=== PATIENT | female | born 2000 | race Caucasian/White ===

== ENCOUNTER 2021-01-13 11:12 | Emergency (ER) | payer OTHER ==
[2021-01-13 11:59] LABS: Urine Blood Trace-intact (Negative); Urine Glucose Negative (Negative); Urine Protein 2+ (Negative); Urine Specific Gravity >=1.030 (1.005-1.030)
[2021-01-13 12:27] LABS: Barbiturates NEGATIVE (NEGATIVE); Benzodiazepines NEGATIVE (NEGATIVE); Cocaine NEGATIVE (NEGATIVE); METHAMPHETAM NEGATIVE (NEGATIVE); Methadone NEGATIVE (NEGATIVE); Opiates NEGATIVE (NEGATIVE); Phencyclidine NEGATIVE (NEGATIVE); THC Cannibis POSITIVE (NEGATIVE)
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
[2021-01-13 12:33] LABS: Urine Specific Gravity/Preg >1.030 (1.005-1.030)
--- NOTE | 2021-01-13 13:38 | RAD REPORT ---
EXAM DESCRIPTION: [place] Single View01/13/2021 1:11 pm CLINICAL HISTORY: Chest pain COMPARISON: none FINDINGS: The lungs appear clear of acute infiltrate. The heart is normal size IMPRESSION: No acute abnormalities displayed
--- NOTE | 2021-01-13 13:39 | RAD REPORT ---
EXAM DESCRIPTION: RADSacrum And Coccyx01/13/2021 1:11 pm CLINICAL HISTORY: Back pain FINDINGS: No fracture is seen
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
[2021-01-13] MEDS ORDERED: ACETAMINOPHEN 500 MG TAB ONE (13:51)
[2021-01-13 14:01] VITALS: TEMP 98.6
[2021-01-13 14:09] VITALS: BP 109/64; O2SAT 99
== END 2021-01-13 13:55 | disposition home or self-care (01) ==
LOC: ER 11:12
DX: S00.83XA Contusion of other part of head, initial encounter (principal); S30.0XXA Contusion of lower back and pelvis, initial encounter; S20.212A Contusion of left front wall of thorax, initial encounter; Y04.8XXA Assault by other bodily force, initial encounter; Y92.009 Unspecified place in unspecified non-institutional (private) residence as the place of occurrence of the external cause
CPT/HCPCS: 70450; 71045; 72125; 72220; 80307; 81003; 81025; 99284

== ENCOUNTER 2021-12-02 20:45 | Emergency (ER) | payer OTHER ==
--- OUTSIDE RECORDS SUMMARY | 2021-12-02 20:52 | XMS REPORT | Continuity of Care Document ---
:2000 Author Organization [facility] t Address [address] [place] [address] Care Team Providers Name Role Phone EDEMEKONG Primary Care Physician Unavailable ABEBA LEIGH Attending Clinician Unavailable Tera Crawford MD Attending Clinician Abeba Leigh MD Attending Clinician Olga Park MD Attending Clinician Trino MEDELLIN Attending Clinician Only, Test Attending Clinician Unavailable Tera CRAWFORD Attending Clinician Unavailable MISTY Attending Clinician Unavailable Misty ALLAN Attending Clinician 2, Lab Attending Clinician Unavailable Doctor Unassigned, Name Attending Clinician Unavailable Abeba Leigh MD Admitting Clinician ABEBA LEIGH Admitting Clinician Unavailable Payers Payer Name Policy Type Policy Number Effective Date Expiration Date S ource Advance Directives Directive Decision Effective Termination Comments Source Date Date Healthcare Agents on N/A [facility] FileNameRelationshipHealthcare [facility] Agent Medical RelationshipCommunicationDebra Branch CoatsGana mdparentHealth Care [phone] (Mobile) [email or web address] Sundar ZamoranoMotherHealth Care [phone] (Mobile) Problems Condition Condition Condition Status Onset Resolution Last Treating Co mments Source Name Details Category Date Date Treatment Clinician Date Liveborn Liveborn Disease Active Unive rs , of infant, of 4-15 it y of [place] 00:00: Yung horton , , 00 Me dical born in born in [facility] hospital by vaginal by vaginal delivery delivery 39 weeks 39 weeks Disease Active Unive rs gestation gestation 4-14 ity of of of 00:00: [place] 00 [facility] Encounter Encounter Disease Active Uni vers for for 4-14 ity of planned planned 00:00: [place] induction induction 00 [facility] of labor of labor [place] Oral Oral Disease Active Univers herpes herpes 3-03 ity of simplex simplex 00:00: [place] infection infection 00 [facility] Maternal Maternal Disease Active Overview: Un jarvis varicella, varicella, 8-31 Formattin ity of non-immune non-immune 00:00: g of this [place] 00 note Medical might be Branch different from the original. Address in PP Supervisio Supervisio Disease Active U nivers n of high n of high 8-30 ity of risk risk 00:00: [place] , , 00 Me dical antepartum antepartum Br anch Nausea and Nausea and Disease Active U nivers vomiting vomiting 8-30 ity of during during 00:00: [place] 00 [facility] prior to prior to Branch 22 weeks 22 weeks gestation gestation History of History of Disease Active U nivers depression depression 8-30 it y of 00:00: [address] [place] [address] Branch Anxiety, Anxiety, Disease Active Unive rs generalize generalize 4-21 it y of d d 00:00: [address] ADHD ADHD Disease Active 2017-08 Overview: Univer s (attention (attention 0-13 Formattin ity of deficit deficit 00:00: g of this [place] hyperactiv hyperactiv 00 note Me dical ity ity might be Branch disorder), disorder), different inattentiv inattentiv from the e type e type original. Vmichaele prescribe d in the past - patient discontin ued, non compliant - states it did not work. She was taking 10 mg q am. Mild Mild Disease Active 2017-08 Univers intermitte intermitte 0-07 [place] y of nt asthma nt asthma 00:[place] without without 00 Medical complicati complicati Br anch on on Chronic Chronic Disease Active 2017-08 Univers allergic allergic 0-07 ity of rhinitis rhinitis 00:00: [place] 00 [facility] Allergies, Adverse Reactions, Alerts Allergy Allergy Status Severity Reaction(s) Onset Inactive Treating Comm ents Source Name Type Date Date Clinician NO KNOWN Drug Active Univers ALLERGIE Class ity of S [facility] Social History Social Habit Start Date Stop Date Quantity Comments Source ASSERTION 2021-03-05 [facility] 00:00:00 [facility] Exposure to Not sure [facility] SARS-CoV-2 (event) Medica l [place] Alcohol intake 2021-11-20 2021-11-20 0 /d [facility] 00:00:00 00:00:00 [facility] Tobacco use and 2015-12-25 2015-12-25 Never used [facility] exposure 00:00:00 00:00:00 [facility] Sex Assigned At [birth year] [facility] 00:00:00 00:00:00 [facility] Smoking Status Start Date Stop Date Source Never smoker [facility] Medications Ordered Filled Start Stop Current Ordering Indication Dosage Frequency Signature Comments Components Source Medication Medication Date Date Medication? Clinician (SIG) Name Name Yes [id number] 1{tbl} Take 1 U nivers vitamin 4-16 tablet by ity of w/FA tablet 00:00: mouth [place] 00 daily. Medical Branch docusate Yes [id number] 240mg Take 1 Un jarvis calcium 240 4-16 capsule by it y of mg capsule 00:00: mouth [place] 00 daily as Medical needed for Branch Constipati on. ferrous Yes [id number] 325mg Take 1 Uni vers sulfate 325 4-16 tablet by ity of mg (65 mg 00:00: mouth 2 [place] iron) 00 (two) Medical tablet times Branch daily. ibuprofen Yes [id number] 600mg Take 1 U nivers 600 mg 4-16 tablet by ity of tablet 00:00: mouth [place] 00 every 6 Medical (six) Branch hours as needed (Pain). Take with food or milk. simethicone Yes 125mg 125 mg, Un jarvis (MYLICON) 4-15 Oral, ity of chewable 23:00: PC+HS, [place] tablet 125 00 First dose Med ical mg on Fri Branch 11/20/21 at 1800, Until Discontinu ed, Routine rho(D) Yes 300ug 300 mcg, Univer s immune 4-15 Intramuscu ity of globulin 18:20: lar, ONCE, Nima as (RHOGAM) 39 For 1 Medical syringe 300 dose, Branch mcg Conditiona l, Routine witch Jose Enrique Yes Topical, Un jarvis (TUCKS) 50 4-15 Q4HPRN, ity of % topical 18:20: [place] pad 37 on Fri Medical 11/20/21 at Branch 1320, Until Discontinu ed, Routine, rectal/hem orrhoidal pain HYDROcodone Yes 1{tbl} 1 tablet, Univers -acetaminop 4-15 Oral, ity of hen (NORCO 18:20: Q6HPRN, [place] 5) 5-325 mg 37 Starting Medi misha tablet 1 on Fri Branch tablet 11/20/21 at 1320, Until Discontinu ed, Routine, Pain (scale 7-10) ibuprofen Yes 600mg 600 mg, Univ ers (IBU) 4-15 Oral, ity of tablet 600 18:20: Q6HPRN, [place] mg 37 Starting Medical on Fri Branch 11/20/21 at 1320, Until Discontinu ed, Routine, Pain (scale 4-6) acetaminoph Yes 650mg 650 mg, Un jarvis en 4-15 Oral, ity of (TYLENOL) 18:20: Q6HPRN, [place] tablet 650 37 Starting Medic al mg on Fri Branch 11/20/21 at 1320, Until Discontinu ed, Routine, Pain (scale 1-3) diphenhydrA Yes 25mg 25 mg, Univ ers MINE 4-15 Oral, ity of (BENADRYL) 18:20: Q6HPRN, [place] tablet 25 37 Starting Medica l mg on Fri Branch 11/20/21 at 1320, Until Discontinu ed, Routine, Sleep, Itching ondansetron Yes 4mg 4 mg, Slow Univers (ZOFRAN 4-15 IV Push, ity of (PF)) 18:20: Q8HPRN, [place] injection 4 37 Starting Medi misha mg on Fri Branch 11/20/21 at 1320, Until Discontinu ed, Routine, Nausea and Vomiting (N/V) docusate Yes 240mg 240 mg, Unive rs calcium 4-15 Oral, ity of (SURFAK) 18:20: QDAILYPRN, [place] capsule 240 37 Starting Medi misha mg on Fri Branch 11/20/21 at 1320, Until Discontinu ed, Routine, Constipati on magnesium Yes 30mL 30 mL, Univer s hydroxide 4-15 Oral, ity of (MILK OF 18:20: QDAILYPRN, [place] MAGNESIA) 37 Starting Medica l 400 mg/5 mL on Tue Branch suspension 11/20/21 at 30 mL 1320, Until Discontinu ed, Routine, Constipati on benzocaine- Yes Topical, Un jarvis menthol 4-15 PRN, ity of (DERMOPLAST 18:20: [place] 20-0.5 % 37 on Fri Medical topical 11/20/21 at Branch spray 1320, Until Discontinu ed, Routine, Perineum discomfort fentaNYL-ro 2021- No Epidural, Univers pivacaine 2 11-20 04-15 CONTINUOUS i ty of mcg/mL-0.1 07:04: 19:28 PRN, [place] % (PF) in 00 :00 Starting Medica l NS 200 mL on Fri Branch epidural 11/20/21 at infusion 0204, RTU Until Tue11/20/21 at 1428, Routine, Intra-op oxytocin 2021- No 1mU/min at 1-40 Un jarvis (PITOCIN) 11-19 04-15 mL/hr, IV ity of 30 units in 17:44: 18:20 Infusion, Lily NS 500 mL 33 :39 TITRATE, Medica l IV infusion Starting Bran ch on Cheryl 11/19/21 at 1244, Until 11/20/21 at 1320, TULIO D5W-LR IV 2021- No 1000mL at 125 Uni vers infusion 4-14 04-15 mL/hr, IV ity o f 1,000 mL 17:30: 18:20 Infusion, Nima as 00 :39 CONTINUOUS Medical , Starting Branch on Cheryl 11/19/21 at 1230, Until Tue11/20/21 at 1320, Routine FENTanyl PF 2021- No 100ug 100 mcg, Univers (SUBLIMAZE 11-19 Slow IV ity o f (PF)) 17:27: 18:20 Push, [place] injection 12 :39 Q1HPRN, Medical 100 mcg Starting Branch on Cheryl 11/19/21 at 1227, Until Tue11/20/21 at 1320, Routine, contractio n pain without an epidural and SVE < 8 cm and Cat I strip proMETHazin 2021- No 25mg 25 mg, IV Univers e 11-19 Piggyback, ity of (PHENERGAN) 17:27: 18:20 Q4HPRN, [place] 25 mg in 12 :39 Starting Medical NaCl 0.9% on [place] Branch (NS) 50 mL 11/19/21 at IV 1227, piggyback Until Tue11/20/21 at 1320, Routine, Nausea and Vomiting (N/V) lactated 2021- No 500mL at 999 Unive rs ringers IV 11-19 mL/hr, 500 it y of infusion 17:27: 18:22 mL, IV [place] 500 mL 12 :00 Infusion, Medical PRN - SEE Branch INSTRUCTIO NS, 1 dose, Starting on Cheryl 11/19/21 at 1227, Until Discontinu ed, Routine acyclovir 2021- Yes [id number] 400mg Take 1 Univers 400 mg 3-24 -22 tablet by ity of tablet 00:00: 04:59 mouth 3 [place] 00 :00 (three) Medical times Branch daily for 28 days. acyclovir 2021- Yes [id number] 400mg Take 1 Univers 400 mg 3-24 -22 tablet by ity of tablet 00:00: 04:59 mouth 3 [place] 00 :00 (three) Medical times Branch daily for 28 days. acyclovir 2021- Yes [id number] 400mg Take 1 Univers 400 mg 3-24 -22 tablet by ity of tablet 00:00: 04:59 mouth 3 [place] 00 :00 (three) Medical times Branch daily for 28 days. acyclovir 2021- Yes [id number] 400mg Take 1 Univers 400 mg 3-24 -22 tablet by ity of tablet 00:00: 04:59 mouth 3 [place] 00 :00 (three) Medical times Branch daily for 28 days. acyclovir 2021- Yes [id number] 400mg Take 1 Univers 400 mg 3-24 -22 tablet by ity of tablet 00:00: 04:59 mouth 3 [place] 00 :00 (three) Medical times Branch daily for 28 days. acyclovir 2021- Yes [id number] 400mg Take 1 Univers 400 mg 3-24 -22 tablet by ity of tablet 00:00: 04:59 mouth 3 [place] 00 :00 (three) Medical times Branch daily for 28 days. acyclovir 2021- Yes [id number] 400mg Take 1 Univers 400 mg 3-24 -22 tablet by ity of tablet 00:00: 04:59 mouth 3 [place] 00 :00 (three) Medical times Branch daily for 28 days. acyclovir 2021- Yes [id number] 400mg Take 1 Univers 400 mg 3-24 -22 tablet by ity of tablet 00:00: 04:59 mouth 3 [place] 00 :00 (three) Medical times Branch daily for 28 days. acyclovir 2021- Yes [id number] 400mg Take 1 Univers 400 mg 3-24 -22 tablet by ity of tablet 00:00: 04:59 mouth 3 [place] 00 :00 (three) Medical times Branch daily for 28 days. acyclovir 2021- No [id number] 400mg Take 1 Univers 400 mg 3-24 04-16 tablet by ity of tablet 00:00: 00:00 mouth 3 [place] 00 :00 (three) Medical times Branch daily for 28 days. acyclovir 2021- Yes [id number] 400mg Take 1 Univers 400 mg 3-03 03-11 tablet by ity of tablet 00:00: 05:59 mouth 3 [place] 00 :00 (three) Medical times Branch daily for 7 days. ferrous 2020-08 Yes [id number] 325mg Take 1 Un jarvis sulfate 2-23 tablet by ity of (IRON, 00:00: mouth 2 [place] FERROUS 00 (two) Medical SULFATE,) times Branch 325 mg (65 daily. mg iron) tablet docusate 2020-08 Yes [id number] 100mg Take 1 U nivers (COLACE) 2-23 capsule by ity o f 100 mg 00:00: mouth [place] capsule 00 daily. Medical Branch ferrous 2020-08 Yes [id number] 325mg Take 1 Un jarvis sulfate 2-23 tablet by ity of (IRON, 00:00: mouth 2 [place] FERROUS 00 (two) Medical SULFATE,) times Branch 325 mg (65 daily. mg iron) tablet docusate 2020-08 Yes [id number] 100mg Take 1 U nivers (COLACE) 2-23 capsule by ity o f 100 mg 00:00: mouth [place] capsule 00 daily. Medical Branch ferrous 2020-08 Yes [id number] 325mg Take 1 Un jarvis sulfate 2-23 tablet by ity of (IRON, 00:00: mouth 2 [place] FERROUS 00 (two) Medical SULFATE,) times Branch 325 mg (65 daily. mg iron) tablet docusate 2020-08 Yes [id number] 100mg Take 1 U nivers (COLACE) 2-23 capsule by ity o f 100 mg 00:00: mouth [place] capsule 00 daily. Medical Branch ferrous 2020-08 Yes [id number] 325mg Take 1 Un jarvis sulfate 2-23 tablet by ity of (IRON, 00:00: mouth 2 [place] FERROUS 00 (two) Medical SULFATE,) times Branch 325 mg (65 daily. mg iron) tablet docusate 2020-08 Yes [id number] 100mg Take 1 U nivers (COLACE) 2-23 capsule by ity o f 100 mg 00:00: mouth [place] capsule 00 daily. Medical Branch ferrous 2020-08 Yes [id number] 325mg Take 1 Un jarvis sulfate 2-23 tablet by ity of (IRON, 00:00: mouth 2 [place] FERROUS 00 (two) Medical SULFATE,) times Branch 325 mg (65 daily. mg iron) tablet docusate 2020-08 Yes [id number] 100mg Take 1 U nivers (COLACE) 2-23 capsule by ity o f 100 mg 00:00: mouth [place] capsule 00 daily. Medical Branch ferrous 2020-08 Yes [id number] 325mg Take 1 Un jarvis sulfate 2-23 tablet by ity of (IRON, 00:00: mouth 2 [place] FERROUS 00 (two) Medical SULFATE,) times Branch 325 mg (65 daily. mg iron) tablet docusate 2020-08 Yes [id number] 100mg Take 1 U nivers (COLACE) 2-23 capsule by ity o f 100 mg 00:00: mouth [place] capsule 00 daily. Medical Branch ferrous 2020-08 Yes [id number] 325mg Take 1 Un jarvis sulfate 2-23 tablet by ity of (IRON, 00:00: mouth 2 [place] FERROUS 00 (two) Medical SULFATE,) times Branch 325 mg (65 daily. mg iron) tablet docusate 2020-08 Yes [id number] 100mg Take 1 U nivers (COLACE) 2-23 capsule by ity o f 100 mg 00:00: mouth [place] capsule 00 daily. Medical Branch ferrous 2020-08 Yes [id number] 325mg Take 1 Un jarvis sulfate 2-23 tablet by ity of (IRON, 00:00: mouth 2 [place] FERROUS 00 (two) Medical SULFATE,) times Branch 325 mg (65 daily. mg iron) tablet docusate 2020-08 Yes [id number] 100mg Take 1 U nivers (COLACE) 2-23 capsule by ity o f 100 mg 00:00: mouth [place] capsule 00 daily. Medical Branch ferrous 2020-08 Yes [id number] 325mg Take 1 Un jarvis sulfate 2-23 tablet by ity of (IRON, 00:00: mouth 2 [place] FERROUS 00 (two) Medical SULFATE,) times Branch 325 mg (65 daily. mg iron) tablet docusate 2020-08 Yes [id number] 100mg Take 1 U nivers (COLACE) 2-23 capsule by ity o f 100 mg 00:00: mouth [place] capsule 00 daily. Medical Branch ferrous 2020-08 Yes [id number] 325mg Take 1 Un jarvis sulfate 2-23 tablet by ity of (IRON, 00:00: mouth 2 [place] FERROUS 00 (two) Medical SULFATE,) times Branch 325 mg (65 daily. mg iron) tablet docusate 2020-08 Yes [id number] 100mg Take 1 U nivers (COLACE) 2-23 capsule by ity o f 100 mg 00:00: mouth [place] capsule 00 daily. Medical Branch ferrous 2020-08 Yes [id number] 325mg Take 1 Un jarvis sulfate 2-23 tablet by ity of (IRON, 00:00: mouth 2 [place] FERROUS 00 (two) Medical SULFATE,) times Branch 325 mg (65 daily. mg iron) tablet docusate 2020-08 Yes [id number] 100mg Take 1 U nivers (COLACE) 2-23 capsule by ity o f 100 mg 00:00: mouth [place] capsule 00 daily. Medical Branch ferrous 2020-08 Yes [id number] 325mg Take 1 Un jarvis sulfate 2-23 tablet by ity of (IRON, 00:00: mouth 2 [place] FERROUS 00 (two) Medical SULFATE,) times Branch 325 mg (65 daily. mg iron) tablet docusate 2020-08 Yes [id number] 100mg Take 1 U nivers (COLACE) 2-23 capsule by ity o f 100 mg 00:00: mouth [place] capsule 00 daily. Medical Branch ferrous 2020-08 Yes [id number] 325mg Take 1 Un jarvis sulfate 2-23 tablet by ity of (IRON, 00:00: mouth 2 [place] FERROUS 00 (two) Medical SULFATE,) times Branch 325 mg (65 daily. mg iron) tablet docusate 2020-08 Yes [id number] 100mg Take 1 U nivers (COLACE) 2-23 capsule by ity o f 100 mg 00:00: mouth [place] capsule 00 daily. Medical Branch ferrous 2020-08- No [id number] 325mg Take 1 U nivers sulfate 2-23 04-16 tablet by ity of (IRON, 00:00: 00:00 mouth 2 [place] FERROUS 00 :00 (two) Medical SULFATE,) times Branch 325 mg (65 daily. mg iron) tablet docusate 2020-08- No [id number] 100mg Take 1 Univers (COLACE) 2-23 04-16 capsule by ity of 100 mg 00:00: 00:00 mouth [place] capsule 00 :00 daily. Medical Branch proMETHazin Yes [id number] 25mg Take 1 Univers e 25 mg 9-27 tablet by ity of tablet 00:00: mouth [place] 00 every 4 Medical (four) Branch hours as needed for Nausea and Vomiting (N/V). proMETHazin Yes [id number] 25mg Take 1 Univers e 25 mg 9-27 tablet by ity of tablet 00:00: mouth [place] 00 every 4 Medical (four) Branch hours as needed for Nausea and Vomiting (N/V). proMETHazin 2020-0 Yes [id number] 25mg Take 1 Univers e 25 mg 9-27 tablet by ity of tablet 00:00: mouth [place] 00 every 4 Medical (four) Branch hours as needed for Nausea and Vomiting (N/V). proMETHazin 2020-0 Yes [id number] 25mg Take 1 Univers e 25 mg 9-27 tablet by ity of tablet 00:00: mouth [place] 00 every 4 Medical (four) Branch hours as needed for Nausea and Vomiting (N/V). proMETHazin 2020-0 Yes [id number] 25mg Take 1 Univers e 25 mg 9-27 tablet by ity of tablet 00:00: mouth [place] 00 every 4 Medical (four) Branch hours as needed for Nausea and Vomiting (N/V). proMETHazin 2020-0 Yes [id number] 25mg Take 1 Univers e 25 mg 9-27 tablet by ity of tablet 00:00: mouth [place] 00 every 4 Medical (four) Branch hours as needed for Nausea and Vomiting (N/V). proMETHazin 2020-0 Yes [id number] 25mg Take 1 Univers e 25 mg 9-27 tablet by ity of tablet 00:00: mouth [place] 00 every 4 Medical (four) Branch hours as needed for Nausea and Vomiting (N/V). proMETHazin 2020-0 Yes [id number] 25mg Take 1 Univers e 25 mg 9-27 tablet by ity of tablet 00:00: mouth [place] 00 every 4 Medical (four) Branch hours as needed for Nausea and Vomiting (N/V). proMETHazin 2020-0 Yes [id number] 25mg Take 1 Univers e 25 mg 9-27 tablet by ity of tablet 00:00: mouth [place] 00 every 4 Medical (four) Branch hours as needed for Nausea and Vomiting (N/V). proMETHazin 2021-0 Yes [id number] 25mg Take 1 Univers e 25 mg 9-27 tablet by ity of tablet 00:00: mouth [place] 00 every 4 Medical (four) Branch hours as needed for Nausea and Vomiting (N/V). proMETHazin 2020-0 Yes [id number] 25mg Take 1 Univers e 25 mg 9-27 tablet by ity of tablet 00:00: mouth [place] 00 every 4 Medical (four) Branch hours as needed for Nausea and Vomiting (N/V). proMETHazin Yes [id number] 25mg Take 1 Univers e 25 mg 9-27 tablet by ity of tablet 00:00: mouth [place] 00 every 4 Medical (four) Branch hours as needed for Nausea and Vomiting (N/V). proMETHazin Yes [id number] 25mg Take 1 Univers e 25 mg 9-27 tablet by ity of tablet 00:00: mouth [place] 00 every 4 Medical (four) Branch hours as needed for Nausea and Vomiting (N/V). proMETHazin 2021- No [id number] 25mg Take 1 Univers e 25 mg 9-27 04-16 tablet by ity of tablet 00:00: 00:00 mouth [place] 00 :00 every 4 Medical (four) Branch hours as needed for Nausea and Vomiting (N/V). Yes [id number] 1{packe Take 1 Univers vit 8-30 t} Packet by ity of 33-iron-fol 00:00: mouth [place] ic-dha 00 daily. Medical (SELECT-OB Branch + DHA) 29 mg iron-1 mg -250 mg combo pack Yes [id number] 1{packe Take 1 Univers vit 8-30 t} Packet by ity of 33-iron-fol 00:00: mouth [place] ic-dha 00 daily. Medical (SELECT-OB Branch + DHA) 29 mg iron-1 mg -250 mg combo pack Yes [id number] 1{packe Take 1 Univers vit 8-30 t} Packet by ity of 33-iron-fol 00:00: mouth [place] ic-dha 00 daily. Medical (SELECT-OB Branch + DHA) 29 mg iron-1 mg -250 mg combo pack Yes [id number] 1{packe Take 1 Univers vit 8-30 t} Packet by ity of 33-iron-fol 00:00: mouth [place] ic-dha 00 daily. Medical (SELECT-OB Branch + DHA) 29 mg iron-1 mg -250 mg combo pack Yes [id number] 1{packe Take 1 Univers vit 8-30 t} Packet by ity of 33-iron-fol 00:00: mouth [place] ic-dha 00 daily. Medical (SELECT-OB Branch + DHA) 29 mg iron-1 mg -250 mg combo pack Yes [id number] 1{packe Take 1 Univers vit 8-30 t} Packet by ity of 33-iron-fol 00:00: mouth [place] ic-dha 00 daily. Medical (SELECT-OB Branch + DHA) 29 mg iron-1 mg -250 mg combo pack Yes [id number] 1{packe Take 1 Univers vit 8-30 t} Packet by ity of 33-iron-fol 00:00: mouth [place] ic-dha 00 daily. Medical (SELECT-OB Branch + DHA) 29 mg iron-1 mg -250 mg combo pack Yes [id number] 1{packe Take 1 Univers vit 8-30 t} Packet by ity of 33-iron-fol 00:00: mouth [place] ic-dha 00 daily. Medical (SELECT-OB Branch + DHA) 29 mg iron-1 mg -250 mg combo pack Yes [id number] 1{packe Take 1 Univers vit 8-30 t} Packet by ity of 33-iron-fol 00:00: mouth [place] ic-dha 00 daily. Medical (SELECT-OB Branch + DHA) 29 mg iron-1 mg -250 mg combo pack Yes [id number] 1{packe Take 1 Univers vit 8-30 t} Packet by ity of 33-iron-fol 00:00: mouth [place] ic-dha 00 daily. Medical (SELECT-OB Branch + DHA) 29 mg iron-1 mg -250 mg combo pack Yes [id number] 1{packe Take 1 Univers vit 8-30 t} Packet by ity of 33-iron-fol 00:00: mouth [place] ic-dha 00 daily. Medical (SELECT-OB Branch + DHA) 29 mg iron-1 mg -250 mg combo pack Yes [id number] 1{packe Take 1 Univers vit 8-30 t} Packet by ity of 33-iron-fol 00:00: mouth [place] ic-dha 00 daily. Medical (SELECT-OB Branch + DHA) 29 mg iron-1 mg -250 mg combo pack Yes [id number] 1{packe Take 1 Univers vit 8-30 t} Packet by ity of 33-iron-fol 00:00: mouth [place] ic-dha 00 daily. Medical (SELECT-OB Branch + DHA) 29 mg iron-1 mg -250 mg combo pack 2021- No [id number] 1{packe Take 1 Univers vit 8-30 04-16 t} Packet by ity of 33-iron-fol 00:00: 00:00 [place] ic-dha 00 :00 daily. Medical (SELECT-OB Branch + DHA) 29 mg iron-1 mg -250 mg combo pack albuterol Yes [id number] 2{puff} Inhale 2 Univers (PROAIR 2-03 Puffs ity of HFA) 90 00:00: every 4 [place] mcg/actuati 00 (four) Medica l on inhaler hours as Branc h needed for Wheezing or Shortness of Breath (or cough). albuterol Yes [id number] 2{puff} Inhale 2 Univers (PROAIR 2-03 Puffs ity of HFA) 90 00:00: every 4 [place] mcg/actuati 00 (four) Medica l on inhaler hours as Branc h needed for Wheezing or Shortness of Breath (or cough). albuterol Yes [id number] 2{puff} Inhale 2 Univers (PROAIR 2-03 Puffs ity of HFA) 90 00:00: every 4 [place] mcg/actuati 00 (four) Medica l on inhaler hours as Branc h needed for Wheezing or Shortness of Breath (or cough). albuterol 2019- Yes [id number] 2{puff} Inhale 2 Univers (PROAIR 2-03 Puffs ity of HFA) 90 00:00: every 4 [place] mcg/actuati 00 (four) Medica l on inhaler hours as Branc h needed for Wheezing or Shortness of Breath (or cough). albuterol 2019- Yes [id number] 2{puff} Inhale 2 Univers (PROAIR 2-03 Puffs ity of HFA) 90 00:00: every 4 [place] mcg/actuati 00 (four) Medica l on inhaler hours as Branc h needed for Wheezing or Shortness of Breath (or cough). albuterol 2020-0 Yes [id number] 2{puff} Inhale 2 Univers (PROAIR 2-03 Puffs ity of HFA) 90 00:00: every 4 [place] mcg/actuati 00 (four) Medica l on inhaler hours as Branc h needed for Wheezing or Shortness of Breath (or cough). albuterol 2020-0 Yes [id number] 2{puff} Inhale 2 Univers (PROAIR 2-03 Puffs ity of HFA) 90 00:00: every 4 [place] mcg/actuati 00 (four) Medica l on inhaler hours as Branc h needed for Wheezing or Shortness of Breath (or cough). albuterol 2020-0 Yes [id number] 2{puff} Inhale 2 Univers (PROAIR 2-03 Puffs ity of HFA) 90 00:00: every 4 [place] mcg/actuati 00 (four) Medica l on inhaler hours as Branc h needed for Wheezing or Shortness of Breath (or cough). albuterol 2020-0 Yes [id number] 2{puff} Inhale 2 Univers (PROAIR 2-03 Puffs ity of HFA) 90 00:00: every 4 [place] mcg/actuati 00 (four) Medica l on inhaler hours as Branc h needed for Wheezing or Shortness of Breath (or cough). albuterol 2020-0 Yes [id number] 2{puff} Inhale 2 Univers (PROAIR 2-03 Puffs ity of HFA) 90 00:00: every 4 [place] mcg/actuati 00 (four) Medica l on inhaler hours as Branc h needed for Wheezing or Shortness of Breath (or cough). albuterol 2020-0 Yes [id number] 2{puff} Inhale 2 Univers (PROAIR 2-03 Puffs ity of HFA) 90 00:00: every 4 [place] mcg/actuati 00 (four) Medica l on inhaler hours as Branc h needed for Wheezing or Shortness of Breath (or cough). albuterol 2020-0 Yes [id number] 2{puff} Inhale 2 Univers (PROAIR 2-03 Puffs ity of HFA) 90 00:00: every 4 [place] mcg/actuati 00 (four) Medica l on inhaler hours as Branc h needed for Wheezing or Shortness of Breath (or cough). albuterol Yes [id number] 2{puff} Inhale 2 Univers (PROAIR 2-03 Puffs ity of HFA) 90 00:00: every 4 [place] mcg/actuati 00 (four) Medica l on inhaler hours as Branc h needed for Wheezing or Shortness of Breath (or cough). albuterol 2021- No [id number] 2{puff} Inhale 2 [facility] (PROAIR 2-03 04-16 Puffs ity of HFA) 90 00:00: 00:00 every 4 [place] mcg/actuati 00 :00 (four) Medica l on inhaler hours as Branc h needed for Wheezing or Shortness of Breath (or cough). Immunizations Ordered Immunization Filled Immunization Date Status Commen ts Source Name Name [facility] 2018-07-07 Completed [facility] 00:00:00 [facility] 2018-07-07 Completed [facility] of 00:00: [facility] HPV9 2018-07-07 Completed [facility] of 00:00:00 [facility] HPV9 2018-07-07 Completed [facility] of 00:00:00 [facility] HPV9 2018-07-07 Completed [facility] of 00:00:00 [facility] HPV9 2018-07-07 Completed [facility] of 00:00:00 [facility] HPV9 2018-07-07 Completed [facility] of 00:00:00 [facility] HPV9 2018-07-07 Completed [facility] of 00:00:00 [facility] HPV9 2018-07-07 Completed [facility] of 00:00:00 [facility] HPV9 2018-07-07 Completed [facility] of 00:00:00 [facility] HPV9 2018-07-07 Completed [facility] of 00:00:00 [facility] HPV9 2018-07-07 Completed [facility] of 00:00:00 [facility] HPV9 2018-07-07 Completed [facility] of 00:00:00 [facility] HPV9 2018-07-07 Completed [facility] of 00:00:00 [facility] Meningococcal B, OMV 2018-03-21 Completed Univ ersity of 00:00:00 [facility] Meningococcal B, OMV 2018-03-21 Completed Univ ersity of 00:00:00 [facility] Meningococcal B, OMV 2018-03-21 Completed Univ ersity of 00:00:00 [facility] Meningococcal B, OMV 2018-03-21 Completed Univ ersity of 00:00:00 [facility] Meningococcal B, OMV 2018-03-21 Completed Univ ersity of 00:00:00 [facility] Meningococcal B, OMV 2018-03-21 Completed Univ ersity of 00:00:00 [facility] Meningococcal B, OMV 2018-03-21 Completed Univ ersity of 00:00:00 [facility] Meningococcal B, OMV 2018-03-21 Completed Univ ersity of 00:00:00 [facility] Meningococcal B, OMV 2018-03-21 Completed Univ ersity of 00:00:00 [facility] Meningococcal B, OMV 2018-03-21 Completed Univ ersity of 00:00:00 [facility] Meningococcal B, OMV 2018-03-21 Completed Univ ersity of 00:00:00 [facility] Meningococcal B, OMV 2018-03-21 Completed Univ ersity of 00:00:00 [facility] Meningococcal B, OMV 2018-03-21 Completed Univ ersity of 00:00:00 [facility] Meningococcal B, OMV 2018-03-21 Completed Univ ersity of 00:00:00 [facility] Meningococcal 2018-01-03 Completed [facility] Polysaccharide 00:00:00 [place] [facility] (groups A, C, Y and Branc h W-135) conjugate vaccine (MCV4P) Meningococcal B, OMV 2018-01-03 Completed Univ ersity of 00:00:00 [facility] HPV9 2018-01-03 Completed [facility] of 00:00:00 [facility] HEPATITIS A 2018-01-03 Completed [facility] of 00:00:00 [facility] Meningococcal 2018-01-03 Completed [facility] Polysaccharide 00:00:00 [place] [facility] (groups A, C, Y and Branc h W-135) conjugate vaccine (MCV4P) Meningococcal B, OMV 2018-01-03 Completed Univ ersity of 00:00:00 [facility] HPV9 2018-01-03 Completed [facility] of 00:00:00 [facility] HEPATITIS A 2018-01-03 Completed [facility] of 00:00:00 [facility] Meningococcal 2018-01-03 Completed [facility] Polysaccharide 00:00:00 [place] [facility] (groups A, C, Y and Branc h W-135) conjugate vaccine (MCV4P) Meningococcal B, OMV 2018-01-03 Completed Univ ersity of 00:00:00 [facility] HPV9 2018-01-03 Completed [facility] of 00:00:00 [facility] HEPATITIS A 2018-01-03 Completed [facility] of 00:00:00 [facility] Meningococcal 2018-01-03 Completed [facility] Polysaccharide 00:00:00 [place] [facility] (groups A, C, Y and Branc h W-135) conjugate vaccine (MCV4P) Meningococcal B, OMV 2018-01-03 Completed Univ ersity of 00:00:00 [facility] HPV9 2018-01-03 Completed [facility] of 00:00:00 [facility] HEPATITIS A 2018-01-03 Completed [facility] of 00:00:00 [facility] Meningococcal 2018-01-03 Completed [facility] Polysaccharide 00:00:00 [place] [facility] (groups A, C, Y and Branc h W-135) conjugate vaccine (MCV4P) Meningococcal B, OMV 2018-01-03 Completed Univ ersity of 00:00:00 [facility] HPV9 2018-01-03 Completed [facility] of 00:00:00 [facility] HEPATITIS A 2018-01-03 Completed [facility] of 00:00:00 [facility] Meningococcal 2018-01-03 Completed [facility] Polysaccharide 00:00:00 [place] [facility] (groups A, C, Y and Branc h W-135) conjugate vaccine (MCV4P) Meningococcal B, OMV 2018-01-03 Completed Univ ersity of 00:00:00 [facility] HPV9 2018-01-03 Completed [facility] of 00:00:00 [facility] HEPATITIS A 2018-01-03 Completed [facility] of 00:00:00 [facility] Meningococcal 2018-01-03 Completed [facility] Polysaccharide 00:00:00 [place] [facility] (groups A, C, Y and Branc h W-135) conjugate vaccine (MCV4P) Meningococcal B, OMV 2018-01-03 Completed Univ ersity of 00:00:00 [facility] HPV9 2018-01-03 Completed [facility] of 00:00:00 [facility] HEPATITIS A 2018-01-03 Completed [facility] of 00:00:00 [facility] Meningococcal 2018-01-03 Completed [facility] Polysaccharide 00:00:00 [place] [facility] (groups A, C, Y and Branc h W-135) conjugate vaccine (MCV4P) Meningococcal B, OMV 2018-01-03 Completed Univ ersity of 00:00:00 [facility] HPV9 2018-01-03 Completed [facility] of 00:00:00 [facility] HEPATITIS A 2018-01-03 Completed [facility] of 00:00:00 [facility] Meningococcal 2018-01-03 Completed [facility] Polysaccharide 00:00:00 [place] [facility] (groups A, C, Y and Branc h W-135) conjugate vaccine (MCV4P) Meningococcal B, OMV 2018-01-03 Completed Univ ersity of 00:00:00 [facility] HPV9 2018-01-03 Completed [facility] of 00:00:00 [facility] HEPATITIS A 2018-01-03 Completed [facility] of 00:00:00 [facility] Meningococcal 2018-01-03 Completed [facility] Polysaccharide 00:00:00 [place] [facility] (groups A, C, Y and Branc h W-135) conjugate vaccine (MCV4P) Meningococcal B, OMV 2018-01-03 Completed Univ ersity of 00:00:00 [facility] HPV9 2018-01-03 Completed [facility] of 00:00:00 [facility] HEPATITIS A 2018-01-03 Completed [facility] of 00:00:00 [facility] Meningococcal 2018-01-03 Completed [facility] Polysaccharide 00:00:00 [place] [facility] (groups A, C, Y and Branc h W-135) conjugate vaccine (MCV4P) Meningococcal B, OMV 2018-01-03 Completed Univ ersity of 00:00:00 [facility] HPV9 2018-01-03 Completed [facility] of 00:00:00 [facility] HEPATITIS A 2018-01-03 Completed [facility] of 00:00:00 [facility] Meningococcal 2018-01-03 Completed [facility] Polysaccharide 00:00:00 [place] [facility] (groups A, C, Y and Branc h W-135) conjugate vaccine (MCV4P) Meningococcal B, OMV 2018-01-03 Completed Univ ersity of 00:00:00 [facility] HPV9 2018-01-03 Completed [facility] of 00:00:00 [facility] HEPATITIS A 2018-01-03 Completed [facility] of 00:00:00 [facility] Meningococcal 2018-01-03 Completed University of Polysaccharide 00:00:00 [facility] misha (groups A, C, Y and Branc h W-135) conjugate vaccine (MCV4P) Meningococcal B, OMV 2018-01-03 Completed Univ ersity of 00:00:00 [facility] HPV9 2018-01-03 Completed [facility] of 00:00:00 [facility] HEPATITIS A 2018-01-03 Completed [facility] of 00:00:00 [facility] Meningococcal 2018-01-03 Completed University of Polysaccharide 00:00:00 [facility] misha (groups A, C, Y and Branc h W-135) conjugate vaccine (MCV4P) Meningococcal B, OMV 2018-01-03 Completed Univ ersity of 00:00:00 [facility] HPV9 2018-01-03 Completed [facility] of 00:00:00 [facility] HEPATITIS A 2018-01-03 Completed [facility] of 00:00:00 [facility] HPV 2015-09-04 Completed University of 00:00:00 [facility] HPV 2015-09-04 Completed University of 00:00:00 [facility] HPV 2015-09-04 Completed University of 00:00:00 [facility] HPV 2015-09-04 Completed [facility] of 00:00:00 [facility] HPV 2015-09-04 Completed [facility] of 00:00:00 [facility] HPV 2015-09-04 Completed [facility] of 00:00:00 [facility] HPV 2015-09-04 Completed [facility] of 00:00:00 [facility] HPV 2015-09-04 Completed [facility] of 00:00:00 [facility] HPV 2015-09-04 Completed [facility] of 00:00:00 [facility] HPV 2015-09-04 Completed [facility] of 00:00:00 [facility] HPV 2015-09-04 Completed [facility] of 00:00:00 [facility] HPV 2015-09-04 Completed [facility] of 00:00:00 [facility] HPV 2015-09-04 Completed [facility] of 00:00:00 [facility] HPV 2015-09-04 Completed [facility] of 00:00:00 [facility] Meningococcal Vaccine 2014-12-26 Completed Uni versity of 00:00:00 [facility] TDAP 2014-12-26 Completed [facility] of 00:00:00 [facility] Varicella 2014-12-26 Completed University of (varivax)(chicken 00:00:00 [place] [facility] pox) [facility] Meningococcal Vaccine 2014-12-26 Completed Uni versity of 00:00:00 [facility] TDAP 2014-12-26 Completed [facility] of 00:00:00 [facility] Varicella 2014-12-26 Completed [facility] of (varivax)(chicken 00:00:00 [place] [facility] pox) [facility] Meningococcal Vaccine 2014-12-26 Completed Uni versity of 00:00:00 [facility] TDAP 2014-12-26 Completed [facility] of 00:00:00 [facility] Varicella 2014-12-26 Completed [facility] of (varivax)(chicken 00:00:00 [place] [facility] pox) [facility] Meningococcal Vaccine 2014-12-26 Completed Uni versity of 00:00:00 [facility] TDAP 2014-12-26 Completed [facility] of 00:00:00 [facility] Varicella 2014-12-26 Completed [facility] of (varivax)(chicken 00:00:00 [place] [facility] pox) [facility] Meningococcal Vaccine 2014-12-26 Completed Uni versity of 00:00:00 [facility] TDAP 2014-12-26 Completed [facility] of 00:00:00 [facility] Varicella 2014-12-26 Completed [facility] of (varivax)(chicken 00:00:00 [place] [facility] pox) [facility] Meningococcal Vaccine 2014-12-26 Completed Uni versity of 00:00:00 [facility] TDAP 2014-12-26 Completed [facility] of 00:00:00 [facility] Varicella 2014-12-26 Completed [facility] of (varivax)(chicken 00:00:00 [place] [facility] pox) [facility] Meningococcal Vaccine 2014-12-26 Completed Uni versity of 00:00:00 [facility] TDAP 2014-12-26 Completed [facility] of 00:00:00 [facility] Varicella 2014-12-26 Completed [facility] of (varivax)(chicken 00:00:00 [place] [facility] pox) [facility] Meningococcal Vaccine 2014-12-26 Completed Uni versity of 00:00:00 [facility] TDAP 2014-12-26 Completed [facility] of 00:00:00 [facility] Varicella 2014-12-26 Completed [facility] of (varivax)(chicken 00:00:00 [place] [facility] pox) [facility] Meningococcal Vaccine 2014-12-26 Completed Uni versity of 00:00:00 [facility] TDAP 2014-12-26 Completed [facility] of 00:00:00 [facility] Varicella 2014-12-26 Completed [facility] of (varivax)(chicken 00:00:00 [place] [facility] pox) [facility] Meningococcal Vaccine 2014-12-26 Completed Uni versity of 00:00:00 [facility] TDAP 2014-12-26 Completed [facility] of 00:00:00 [facility] Varicella 2014-12-26 Completed [facility] of (varivax)(chicken 00:00:00 [place] [facility] pox) [facility] Meningococcal Vaccine 2014-12-26 Completed Uni versity of 00:00:00 [facility] TDAP 2014-12-26 Completed [facility] of 00:00:00 [facility] Varicella 2014-12-26 Completed [facility] of (varivax)(chicken 00:00:00 [place] [facility] pox) [facility] Meningococcal Vaccine 2014-12-26 Completed Uni versity of 00:00:00 [facility] TDAP 2014-12-26 Completed [facility] of 00:00:00 [facility] Varicella 2014-12-26 Completed [facility] of (varivax)(chicken 00:00:00 [place] [facility] pox) [facility] Meningococcal Vaccine 2014-12-26 Completed Uni versity of 00:00:00 [facility] TDAP 2014-12-26 Completed [facility] of 00:00:00 [facility] Varicella 2014-12-26 Completed University of (varivax)(chicken 00:00:00 [facility] edical pox) Branch Meningococcal Vaccine 2014-12-26 Completed Uni versity of 00:00:00 [facility] TDAP 2014-12-26 Completed [facility] of 00:00:00 [facility] Varicella 2014-12-26 Completed [facility] of (varivax)(chicken 00:00:00 [place] [facility] pox) [facility] DTAP 2006-03-15 Completed [facility] 00:00:00 [facility] HEPATITIS A 2006-03-15 Completed [facility] of 00:00:00 [facility] MMR 2006-03-15 Completed [facility] of 00:00:00 [facility] Polio (IPV/OPV) 2006-03-15 Completed Universit y of 00:00:00 [facility] Pneumococcal 7 2006-03-15 Completed University of Conjugate, PCV7 00:00:00 [facility] ical (Prevnar7) Branch DTAP 2006-03-15 Completed [facility] of 00:00:00 [facility] HEPATITIS A 2006-03-15 Completed [facility] of 00:00:00 [facility] MMR 2006-03-15 Completed [facility] of 00:00:00 [facility] Polio (IPV/OPV) 2006-03-15 Completed Universit y of 00:00:00 [facility] Pneumococcal 7 2006-03-15 Completed [facility] of Conjugate, PCV7 00:00:00 [place] [facility] (Prevnar7) [facility] DTAP 2006-03-15 Completed [facility] of 00:00:00 [facility] HEPATITIS A 2006-03-15 Completed [facility] of 00:00:00 [facility] MMR 2006-03-15 Completed [facility] of 00:00:00 [facility] Polio (IPV/OPV) 2006-03-15 Completed Universit y of 00:00:00 [facility] Pneumococcal 7 2006-03-15 Completed [facility] of Conjugate, PCV7 00:00:00 [place] [facility] (Prevnar7) [facility] DTAP 2006-03-15 Completed [facility] of 00:00:00 [facility] HEPATITIS A 2006-03-15 Completed [facility] of 00:00:00 [facility] MMR 2006-03-15 Completed [facility] of 00:00:00 [facility] Polio (IPV/OPV) 2006-03-15 Completed Universit y of 00:00:00 [facility] Pneumococcal 7 2006-03-15 Completed [facility] of Conjugate, PCV7 00:00:00 [place] [facility] (Prevnar7) [facility] DTAP 2006-03-15 Completed [facility] of 00:00:00 [facility] HEPATITIS A 2006-03-15 Completed [facility] of 00:00:00 [facility] MMR 2006-03-15 Completed [facility] of 00:00:00 [facility] Polio (IPV/OPV) 2006-03-15 Completed Universit y of 00:00:00 [facility] Pneumococcal 7 2006-03-15 Completed [facility] of Conjugate, PCV7 00:00:00 [place] [facility] (Prevnar7) [facility] DTAP 2006-03-15 Completed [facility] of 00:00:00 [facility] HEPATITIS A 2006-03-15 Completed [facility] of 00:00:00 [facility] MMR 2006-03-15 Completed [facility] of 00:00:00 [facility] Polio (IPV/OPV) 2006-03-15 Completed Universit y of 00:00:00 [facility] Pneumococcal 7 2006-03-15 Completed [facility] of Conjugate, PCV7 00:00:00 [place] [facility] (Prevnar7) [facility] DTAP 2006-03-15 Completed [facility] of 00:00:00 [facility] HEPATITIS A 2006-03-15 Completed [facility] of 00:00:00 [facility] MMR 2006-03-15 Completed [facility] of 00:00:00 [facility] Polio (IPV/OPV) 2006-03-15 Completed Universit y of 00:00:00 [facility] Pneumococcal 7 2006-03-15 Completed [facility] of Conjugate, PCV7 00:00:00 [place] [facility] (Prevnar7) Branch DTAP 2006-03-15 Completed [facility] of 00:00:00 [facility] HEPATITIS A 2006-03-15 Completed [facility] of 00:00:00 [facility] MMR 2006-03-15 Completed [facility] of 00:00:00 [facility] Polio (IPV/OPV) 2006-03-15 Completed Universit y of 00:00:00 [facility] Pneumococcal 7 2006-03-15 Completed [facility] of Conjugate, PCV7 00:00:00 [place] [facility] (Prevnar7) Branch DTAP 2006-03-15 Completed [facility] of 00:00:00 [facility] HEPATITIS A 2006-03-15 Completed [facility] of 00:00:00 [facility] MMR 2006-03-15 Completed [facility] of 00:00:00 [facility] Polio (IPV/OPV) 2006-03-15 Completed Universit y of 00:00:00 [facility] Pneumococcal 7 2006-03-15 Completed [facility] of Conjugate, PCV7 00:00:00 [place] [facility] (Prevnar7) [facility] DTAP 2006-03-15 Completed [facility] of 00:00:00 [facility] HEPATITIS A 2006-03-15 Completed [facility] of 00:00:00 [facility] MMR 2006-03-15 Completed [facility] of 00:00:00 [facility] Polio (IPV/OPV) 2006-03-15 Completed Universit y of 00:00:00 [facility] Pneumococcal 7 2006-03-15 Completed [facility] of Conjugate, PCV7 00:00:00 [place] [facility] (Prevnar7) [facility] DTAP 2006-03-15 Completed [facility] of 00:00:00 [facility] HEPATITIS A 2006-03-15 Completed [facility] of 00:00:00 [facility] MMR 2006-03-15 Completed [facility] of 00:00:00 [facility] Polio (IPV/OPV) 2006-03-15 Completed Universit y of 00:00:00 [facility] Pneumococcal 7 2006-03-15 Completed [facility] of Conjugate, PCV7 00:00:00 [place] [facility] (Prevnar7) [facility] DTAP 2006-03-15 Completed [facility] of 00:00:00 [facility] HEPATITIS A 2006-03-15 Completed [facility] of 00:00:00 [facility] MMR 2006-03-15 Completed [facility] of 00:00:00 [facility] Polio (IPV/OPV) 2006-03-15 Completed Univers[facility] 00:00:00 [facility] Pneumococcal 7 2006-03-15 Completed [facility] of Conjugate, PCV7 00:00:00 [place] [facility] (Prevnar7) [facility] DTAP 2006-03-15 Completed [facility] of 00:00:00 [facility] HEPATITIS A 2006-03-15 Completed [facility] of 00:00:00 [facility] MMR 2006-03-15 Completed [facility] of 00:00:00 [facility] Polio (IPV/OPV) 2006-03-15 Completed Univers[facility] 00:00:00 [facility] Pneumococcal 7 2006-03-15 Completed [facility] of Conjugate, PCV7 00:00:00 [place] [facility] (Prevnar7) [facility] DTAP 2006-03-15 Completed [facility] 00:00:00 [facility] HEPATITIS A 2006-03-15 Completed [facility] of 00:00:00 [facility] MMR 2006-03-15 Completed [facility] of 00:00:00 [facility] Polio (IPV/OPV) 2006-03-15 Completed Univers[facility] of 00:00:00 [facility] Pneumococcal 7 2006-03-15 Completed [facility] of Conjugate, PCV7 00:00:00 [place] [facility] (Prevnar7) [facility] HIB 4 Dose Schedule 2004-03-26 Completed Unive rsity of 00:00:00 [facility] Hep B, Adol or Pedi 2004-03-26 Completed Unive rsity of Dosage 00:00:00 [facility] HIB 4 Dose Schedule 2004-03-26 Completed Unive rsity of 00:00:00 [facility] Hep B, Adol or Pedi 2004-03-26 Completed Unive rsity of Dosage 00:00:00 [facility] HIB 4 Dose Schedule 2004-03-26 Completed Unive rsity of 00:00:00 [facility] Hep B, Adol or Pedi 2004-03-26 Completed Unive rsity of Dosage 00:00:00 [facility] HIB 4 Dose Schedule 2004-03-26 Completed Unive rsity of 00:00:00 [facility] Hep B, Adol or Pedi 2004-03-26 Completed Unive rsity of Dosage 00:00:00 [facility] HIB 4 Dose Schedule 2004-03-26 Completed Unive rsity of 00:00:00 [facility] Hep B, Adol or Pedi 2004-03-26 Completed Unive rsity of Dosage 00:00:00 [facility] HIB 4 Dose Schedule 2004-03-26 Completed Unive rsity of 00:00:00 [facility] Hep B, Adol or Pedi 2004-03-26 Completed Unive rsity of Dosage 00:00:00 [facility] HIB 4 Dose Schedule 2004-03-26 Completed Unive rsity of 00:00:00 [facility] Hep B, Adol or Pedi 2004-03-26 Completed Unive rsity of Dosage 00:00:00 [facility] HIB 4 Dose Schedule 2004-03-26 Completed Unive rsity of 00:00:00 [facility] Hep B, Adol or Pedi 2004-03-26 Completed Unive rsity of Dosage 00:00:00 [facility] HIB 4 Dose Schedule 2004-03-26 Completed Unive rsity of 00:00:00 [facility] Hep B, Adol or Pedi 2004-03-26 Completed Unive rsity of Dosage 00:00:00 [facility] HIB 4 Dose Schedule 2004-03-26 Completed Unive rsity of 00:00:00 [facility] Hep B, Adol or Pedi 2004-03-26 Completed Unive rsity of Dosage 00:00:00 [facility] HIB 4 Dose Schedule 2004-03-26 Completed Unive rsity of 00:00:00 [facility] Hep B, Adol or Pedi 2004-03-26 Completed Unive rsity of Dosage 00:00:00 [facility] HIB 4 Dose Schedule 2004-03-26 Completed Unive rsity of 00:00:00 [facility] Hep B, Adol or Pedi 2004-03-26 Completed Unive rsity of Dosage 00:00:00 [facility] HIB 4 Dose Schedule 2004-03-26 Completed Unive rsity of 00:00:00 [facility] Hep B, Adol or Pedi 2004-03-26 Completed Unive rsity of Dosage 00:00:00 [facility] HIB 4 Dose Schedule 2004-03-26 Completed Unive rsity of 00:00:00 [facility] Hep B, Adol or Pedi 2004-03-26 Completed Unive rsity of Dosage 00:00:00 [facility] DTAP 2003-06-19 Completed University of 00:00:00 [facility] HIB 4 Dose Schedule 2003-06-19 Completed Unive rsity of 00:00:00 [facility] Polio (IPV/OPV) 2003-06-19 Completed Univers[facility] 00:00:00 [facility] Pneumococcal 7 2003-06-19 Completed University of Conjugate, PCV7 00:00:00 [place] [facility] (Prevnar7) [facility] DTAP 2003-06-19 Completed [facility] of 00:00:00 [facility] HIB 4 Dose Schedule 2003-06-19 Completed Unive rsity of 00:00:00 [facility] Polio (IPV/OPV) 2003-06-19 Completed Univers[facility] 00:00:00 [facility] Pneumococcal 7 2003-06-19 Completed University of Conjugate, PCV7 00:00:00 [place] [facility] (Prevnar7) [facility] DTAP 2003-06-19 Completed [facility] of 00:00:00 [facility] HIB 4 Dose Schedule 2003-06-19 Completed Unive rsity of 00:00:00 [facility] Polio (IPV/OPV) 2003-06-19 Completed Univers[facility] 00:00:00 [facility] Pneumococcal 7 2003-06-19 Completed University of Conjugate, PCV7 00:00:00 [place] [facility] (Prevnar7) [facility] DTAP 2003-06-19 Completed [facility] of 00:00:00 [facility] HIB 4 Dose Schedule 2003-06-19 Completed Unive rsity of 00:00:00 [facility] Polio (IPV/OPV) 2003-06-19 Completed [facility]it y of 00:00:00 [facility] Pneumococcal 7 2003-06-19 Completed University of Conjugate, PCV7 00:00:00 [place] [facility] (Pre[facility] DTAP 2003-06-19 Completed University of 00:00:00 [facility] HIB 4 Dose Schedule 2003-06-19 Completed Unive rsity of 00:00:00 [facility] Polio (IPV/OPV) 2003-06-19 Completed [facility]it y of 00:00:00 [facility] Pneumococcal 7 2003-06-19 Completed [facility] of Conjugate, PCV7 00:00:00 [place] [facility] (Pre[facility] DTAP 2003-06-19 Completed University of 00:00:00 [facility] HIB 4 Dose Schedule 2003-06-19 Completed Unive rsity of 00:00:00 [facility] Polio (IPV/OPV) 2003-06-19 Completed [facility]it y of 00:00:00 [facility] Pneumococcal 7 2003-06-19 Completed [facility] of Conjugate, PCV7 00:00:00 [facility] (Pre[facility]ar[facility] DTAP 2003-06-19 Completed [facility] of 00:00:00 [facility] HIB 4 Dose Schedule 2003-06-19 Completed Unive rsity of 00:00:00 [facility] Polio (IPV/OPV) 2003-06-19 Completed [facility]it y of 00:00:00 [facility] Pneumococcal 7 2003-06-19 Completed [facility] of Conjugate, PCV7 00:00:00 [facility] (Pre[facility]ar[facility] DTAP 2003-06-19 Completed [facility] of 00:00:00 [facility] HIB 4 Dose Schedule 2003-06-19 Completed Unive rsity of 00:00:00 [facility] Polio (IPV/OPV) 2003-06-19 Completed [facility]it [facility] of 00:00:00 [facility] Pneumococcal 7 2003-06-19 Completed [facility] of Conjugate, PCV7 00:00:00 [place] [facility] (Pre[facility]ar[facility] DTAP 2003-06-19 Completed [facility] of 00:00:00 [facility] HIB 4 Dose Schedule 2003-06-19 Completed Unive rsity of 00:00:00 [facility] Polio (IPV/OPV) 2003-06-19 Completed [facility]it [facility] of 00:00:00 [facility] Pneumococcal 7 2003-06-19 Completed [facility] of Conjugate, PCV7 00:00:00 [facility] (Pre[facility]ar[facility] DTAP 2003-06-19 Completed [facility] of 00:00:00 [facility] HIB 4 Dose Schedule 2003-06-19 Completed Unive rsity of 00:00:00 [facility] Polio (IPV/OPV) 2003-06-19 Completed [facility]it [facility] of 00:00:00 [facility] Pneumococcal 7 2003-06-19 Completed [facility] of Conjugate, PCV7 00:00:00 [facility] (Pre[facility]ar[facility] DTAP 2003-06-19 Completed University of 00:00:00 [facility] HIB 4 Dose Schedule 2003-06-19 Completed Unive rsity of 00:00:00 [facility] Polio (IPV/OPV) 2003-06-19 Completed [facility] of 00:00:00 [facility] Pneumococcal 7 2003-06-19 Completed [facility] of Conjugate, PCV7 00:00:00 [facility] (Pre[facility]ar[facility] DTAP 2003-06-19 Completed [facility] of 00:00:00 [facility] HIB 4 Dose Schedule 2003-06-19 Completed Unive rsity of 00:00:00 [facility] Polio (IPV/OPV) 2003-06-19 Completed [facility]it [facility] of 00:00:00 [facility] Pneumococcal 7 2003-06-19 Completed [facility] of Conjugate, PCV7 00:00:00 [facility] (Pre[facility]ar[facility] DTAP 2003-06-19 Completed [facility] of 00:00:00 [facility] HIB 4 Dose Schedule 2003-06-19 Completed Unive rsity of 00:00:00 [facility] Polio (IPV/OPV) 2003-06-19 Completed [facility]it [facility] of 00:00:00 [facility] Pneumococcal 7 2003-06-19 Completed [facility] of Conjugate, PCV7 00:00:00 [facility] (Pre[facility]ar[facility] DTAP 2003-06-19 Completed [facility] of 00:00:00 [facility] HIB 4 Dose Schedule 2003-06-19 Completed Unive rsity of 00:00:00 [facility] Polio (IPV/OPV) 2003-06-19 Completed [facility]it [facility] of 00:00:00 [facility] Pneumococcal 7 2003-06-19 Completed [facility] of Conjugate, PCV7 00:00:00 [place] [facility] (Prevnar7[facility] DTAP 2003-02-27 Completed University of 00:00:00 [facility] HIB 4 Dose Schedule 2003-02-27 Completed Unive rsity of 00:00:00 [facility] MMR 2003-02-27 Completed University of 00:00:00 [facility] Polio (IPV/OPV) 2003-02-27 Completed [facility]it [facility] of 00:00:00 [facility] Varicella 2003-02-27 Completed [facility] of (varivax)(chicken 00:00:00 [place] [facility] pox) [facility] DTAP 2003-02-27 Completed [facility] of 00:00:00 [facility] HIB 4 Dose Schedule 2003-02-27 Completed Unive rsity of 00:00:00 [facility] MMR 2003-02-27 Completed University of 00:00:00 [facility] Polio (IPV/OPV) 2003-02-27 Completed [facility]it [facility] of 00:00:00 [facility] Varicella 2003-02-27 Completed [facility] of (varivax)(chicken 00:00:00 [place] [facility] pox) [facility] DTAP 2003-02-27 Completed University of 00:00:00 [facility] HIB 4 Dose Schedule 2003-02-27 Completed Unive rsity of 00:00:00 [facility] MMR 2003-02-27 Completed University of 00:00:00 [facility] Polio (IPV/OPV) 2003-02-27 Completed [facility]it [facility] of 00:00:00 [facility] Varicella 2003-02-27 Completed [facility] of (varivax)(chicken 00:00:00 [place] [facility] pox) [facility] DTAP 2003-02-27 Completed [facility] of 00:00:00 [facility] HIB 4 Dose Schedule 2003-02-27 Completed Unive rsity of 00:00:00 [facility] MMR 2003-02-27 Completed University of 00:00:00 [facility] Polio (IPV/OPV) 2003-02-27 Completed [facility]it [facility] of 00:00:00 [facility] Varicella 2003-02-27 Completed [facility] of (varivax)(chicken 00:00:00 [place] [facility] pox) [facility] DTAP 2003-02-27 Completed [facility] of 00:00:00 [facility] HIB 4 Dose Schedule 2003-02-27 Completed Unive rsity of 00:00:00 [facility] MMR 2003-02-27 Completed University of 00:00:00 [facility] Polio (IPV/OPV) 2003-02-27 Completed [facility]it [facility] of 00:00:00 [facility] Varicella 2003-02-27 Completed [facility] of (varivax)(chicken 00:00:00 [place] [facility] pox) [facility] DTAP 2003-02-27 Completed University of 00:00:00 [facility] HIB 4 Dose Schedule 2003-02-27 Completed Unive rsity of 00:00:00 [facility] MMR 2003-02-27 Completed University of 00:00:00 [facility] Polio (IPV/OPV) 2003-02-27 Completed [facility]it [facility] of 00:00:00 [facility] Varicella 2003-02-27 Completed [facility] of (varivax)(chicken 00:00:00 [place] [facility] pox) [facility] DTAP 2003-02-27 Completed [facility] of 00:00:00 [facility] HIB 4 Dose Schedule 2003-02-27 Completed Unive rsity of 00:00:00 [facility] MMR 2003-02-27 Completed University of 00:00:00 [facility] Polio (IPV/OPV) 2003-02-27 Completed [facility] of 00:00:00 [facility] Varicella 2003-02-27 Completed [facility] of (varivax)(chicken 00:00:00 [place] [facility] pox) [facility] DTAP 2003-02-27 Completed [facility] of 00:00:00 [facility] HIB 4 Dose Schedule 2003-02-27 Completed Unive rsity of 00:00:00 [facility] MMR 2003-02-27 Completed University of 00:00:00 [facility] Polio (IPV/OPV) 2003-02-27 Completed [facility]it [facility] of 00:00:00 [facility] Varicella 2003-02-27 Completed [facility] of (varivax)(chicken 00:00:00 [place] [facility] pox) [facility] DTAP 2003-02-27 Completed [facility] of 00:00:00 [facility] HIB 4 Dose Schedule 2003-02-27 Completed Unive rsity of 00:00:00 [facility] MMR 2003-02-27 Completed University of 00:00:00 [facility] Polio (IPV/OPV) 2003-02-27 Completed [facility] of 00:00:00 [facility] Varicella 2003-02-27 Completed [facility] of (varivax)(chicken 00:00:00 [place] [facility] pox) [facility] DTAP 2003-02-27 Completed University of 00:00:00 [facility] HIB 4 Dose Schedule 2003-02-27 Completed Unive rsity of 00:00:00 [facility] MMR 2003-02-27 Completed University of 00:00:00 [facility] Polio (IPV/OPV) 2003-02-27 Completed [facility]it [facility] of 00:00:00 [facility] Varicella 2003-02-27 Completed [facility] of (varivax)(chicken 00:00:00 [place] [facility] pox) [facility] DTAP 2003-02-27 Completed [facility] of 00:00:00 [facility] HIB 4 Dose Schedule 2003-02-27 Completed Unive rsity of 00:00:00 [facility] MMR 2003-02-27 Completed University of 00:00:00 [facility] Polio (IPV/OPV) 2003-02-27 Completed [facility]it [facility] of 00:00:00 [facility] Varicella 2003-02-27 Completed [facility] of (varivax)(chicken 00:00:00 [place] [facility] pox) [facility] DTAP 2003-02-27 Completed [facility] of 00:00:00 [facility] HIB 4 Dose Schedule 2003-02-27 Completed Unive rsity of 00:00:00 [facility] MMR 2003-02-27 Completed University of 00:00:00 [facility] Polio (IPV/OPV) 2003-02-27 Completed [facility]it [facility] of 00:00:00 [facility] Varicella 2003-02-27 Completed [facility] of (varivax)(chicken 00:00:00 [place] [facility] pox) [facility] DTAP 2003-02-27 Completed [facility] of 00:00:00 [facility] HIB 4 Dose Schedule 2003-02-27 Completed Unive rsity of 00:00:00 [facility] MMR 2003-02-27 Completed University of 00:00:00 [facility] Polio (IPV/OPV) 2003-02-27 Completed [facility]it [facility] of 00:00:00 [facility] Varicella 2003-02-27 Completed [facility] of (varivax)(chicken 00:00:00 [place] [facility] pox) [facility] DTAP 2003-02-27 Completed University of 00:00:00 [facility] HIB 4 Dose Schedule 2003-02-27 Completed Unive rsity of 00:00:00 [facility] MMR 2003-02-27 Completed University of 00:00:00 [facility] Polio (IPV/OPV) 2003-02-27 Completed [facility]it [facility] of 00:00:00 [facility] Varicella 2003-02-27 Completed [facility] of (varivax)(chicken 00:00:00 [place] [facility] pox) [facility] DTAP 2002-03-28 Completed [facility] of 00:00:00 [facility] HIB 4 Dose Schedule 2002-03-28 Completed Unive rsity of 00:00:00 [facility] Hep B, Adol or Pedi 2002-03-28 Completed Unive rsity of Dosage 00:00:00 [facility] Polio (IPV/OPV) 2002-03-28 Completed [facility]it [facility] of 00:00:00 [facility] DTAP 2002-03-28 Completed University of 00:00:00 [facility] HIB 4 Dose Schedule 2002-03-28 Completed Unive rsity of 00:00:00 [facility] Hep B, Adol or Pedi 2002-03-28 Completed Unive rsity of Dosage 00:00:00 [facility] Polio (IPV/OPV) 2002-03-28 Completed [facility]it [facility] of 00:00:00 [facility] DTAP 2002-03-28 Completed [facility] of 00:00:00 [facility] HIB 4 Dose Schedule 2002-03-28 Completed Unive rsity of 00:00:00 [facility] Hep B, Adol or Pedi 2002-03-28 Completed Unive rsity of Dosage 00:00:00 [facility] Polio (IPV/OPV) 2002-03-28 Completed Universit y of 00:00:00 [facility] DTAP 2002-03-28 Completed University of 00:00:00 [facility] HIB 4 Dose Schedule 2002-03-28 Completed Unive rsity of 00:00:00 [facility] Hep B, Adol or Pedi 2002-03-28 Completed Unive rsity of Dosage 00:00:00 [facility] Polio (IPV/OPV) 2002-03-28 Completed [facility]it [facility] of 00:00:00 [facility] DTAP 2002-03-28 Completed University of 00:00:00 [facility] HIB 4 Dose Schedule 2002-03-28 Completed Unive rsity of 00:00:00 [facility] Hep B, Adol or Pedi 2002-03-28 Completed Unive rsity of Dosage 00:00:00 [facility] Polio (IPV/OPV) 2002-03-28 Completed [facility] of 00:00:00 [facility] DTAP 2002-03-28 Completed [facility] 00:00:00 [facility] HIB 4 Dose Schedule 2002-03-28 Completed Unive rsity of 00:00:00 [facility] Hep B, Adol or Pedi 2002-03-28 Completed Unive rsity of Dosage 00:00:00 [facility] Polio (IPV/OPV) 2002-03-28 Completed Universit [facility] of 00:00:00 [facility] DTAP 2002-03-28 Completed University of 00:00:00 [facility] HIB 4 Dose Schedule 2002-03-28 Completed Unive rsity of 00:00:00 [facility] Hep B, Adol or Pedi 2002-03-28 Completed Unive rsity of Dosage 00:00:00 [facility] Polio (IPV/OPV) 2002-03-28 Completed [facility]it [facility] of 00:00:00 [facility] DTAP 2002-03-28 Completed University of 00:00:00 [facility] HIB 4 Dose Schedule 2002-03-28 Completed Unive rsity of 00:00:00 [facility] Hep B, Adol or Pedi 2002-03-28 Completed Unive rsity of Dosage 00:00:00 [facility] Polio (IPV/OPV) 2002-03-28 Completed Universit y of 00:00:00 [facility] DTAP 2002-03-28 Completed University of 00:00:00 [facility] HIB 4 Dose Schedule 2002-03-28 Completed Unive rsity of 00:00:00 [facility] Hep B, Adol or Pedi 2002-03-28 Completed Unive rsity of Dosage 00:00:00 [facility] Polio (IPV/OPV) 2002-03-28 Completed [facility]it [facility] of 00:00:00 [facility] DTAP 2002-03-28 Completed University of 00:00:00 [facility] HIB 4 Dose Schedule 2002-03-28 Completed Unive rsity of 00:00:00 [facility] Hep B, Adol or Pedi 2002-03-28 Completed Unive rsity of Dosage 00:00:00 [facility] Polio (IPV/OPV) 2002-03-28 Completed [facility]it [facility] of 00:00:00 [facility] DTAP 2002-03-28 Completed University of 00:00:00 [facility] HIB 4 Dose Schedule 2002-03-28 Completed Unive rsity of 00:00:00 [facility] Hep B, Adol or Pedi 2002-03-28 Completed Unive rsity of Dosage 00:00:00 [facility] Polio (IPV/OPV) 2002-03-28 Completed [facility]it [facility] of 00:00:00 [facility] DTAP 2002-03-28 Completed University of 00:00:00 [facility] HIB 4 Dose Schedule 2002-03-28 Completed Unive rsity of 00:00:00 [facility] Hep B, Adol or Pedi 2002-03-28 Completed Unive rsity of Dosage 00:00:00 [facility] Polio (IPV/OPV) 2002-03-28 Completed [facility]it [facility] of 00:00:00 [facility] DTAP 2002-03-28 Completed [facility] of 00:00:00 [facility] HIB 4 Dose Schedule 2002-03-28 Completed Unive rsity of 00:00:00 [facility] Hep B, Adol or Pedi 2002-03-28 Completed Unive rsity of Dosage 00:00:00 [facility] Polio (IPV/OPV) 2002-03-28 Completed [facility]it [facility] of 00:00:00 [facility] DTAP 2002-03-28 Completed University of 00:00:00 [facility] HIB 4 Dose Schedule 2002-03-28 Completed Unive rsity of 00:00:00 [facility] Hep B, Adol or Pedi 2002-03-28 Completed Unive rsity of Dosage 00:00:00 [facility] Polio (IPV/OPV) 2002-03-28 Completed [facility] of 00:00:00 [facility] Hep B, Adol or Pedi 2001 Completed Unive rsity of Dosage 00:00:00 [facility] Hep B, Adol or Pedi 2001 Completed Unive rsity of Dosage 00:00:00 [facility] Hep B, Adol or Pedi 2001 Completed Unive rsity of Dosage 00:00:00 [facility] Hep B, Adol or Pedi 2001 Completed Unive rsity of Dosage 00:00:00 [facility] Hep B, Adol or Pedi 2001 Completed Unive rsity of Dosage 00:00:00 [facility] Hep B, Adol or Pedi 2001 Completed Unive rsity of Dosage 00:00:00 [facility] Hep B, Adol or Pedi 2001 Completed Unive rsity of Dosage 00:00:00 [facility] Hep B, Adol or Pedi 2001 Completed Unive rsity of Dosage 00:00:00 [facility] Hep B, Adol or Pedi 2001 Completed Unive rsity of Dosage 00:00:00 [facility] Hep B, Adol or Pedi 2001 Completed Unive rsity of Dosage 00:00:00 [facility] Hep B, Adol or Pedi 2001 Completed Unive rsity of Dosage 00:00:00 [facility] Hep B, Adol or Pedi 2001 Completed Unive rsity of Dosage 00:00:00 [facility] Hep B, Adol or Pedi 2001 Completed Unive rsity of Dosage 00:00:00 [facility] Hep B, Adol or Pedi 2001 Completed Unive rsity of Dosage 00:00:00 [facility] Hep B, Adol or Pedi 2001 Completed Unive rsity of Dosage 00:00:00 [facility] Hep B, Adol or Pedi 2001 Completed Unive rsity of Dosage 00:00:00 [facility] Hep B, Adol or Pedi 2001 Completed Unive rsity of Dosage 00:00:00 [facility] Hep B, Adol or Pedi 2001 Completed Unive rsity of Dosage 00:00:00 [facility] Hep B, Adol or Pedi 2001 Completed Unive rsity of Dosage 00:00:00 [facility] Hep B, Adol or Pedi 2001 Completed Unive rsity of Dosage 00:00:00 [facility] Hep B, Adol or Pedi 2001 Completed Unive rsity of Dosage 00:00:00 [facility] Hep B, Adol or Pedi 2001 Completed Unive rsity of Dosage 00:00:00 [facility] Hep B, Adol or Pedi 2001 Completed Unive rsity of Dosage 00:00:00 [facility] Hep B, Adol or Pedi 2001 Completed Unive rsity of Dosage 00:00:00 [facility] Hep B, Adol or Pedi 2001 Completed Unive rsity of Dosage 00:00:00 [facility] Hep B, Adol or Pedi 2001 Completed Unive rsity of Dosage 00:00:00 [facility] Hep B, Adol or Pedi 2001 Completed Unive rsity of Dosage 00:00:00 [facility] Hep B, Adol or Pedi 2001 Completed Unive rsity of Dosage 00:00:00 [facility] Vital Signs Vital Name Observation Time Observation Value Comments Source Systolic blood 2021-11-21 22:00:00 125 mm[Hg] Univer sity of pressure [facility] Diastolic blood 2021-11-21 22:00:00 72 mm[Hg] Unive rsity of pressure [facility] Heart rate 2021-11-21 22:00:00 78 /min Universi ty [facility] Body temperature 2021-11-21 22:00:00 36.72 Marguerite [facility] Respiratory rate 2021-11-21 22:00:00 18 /min [facility] Oxygen saturation in 2021-11-21 22:00:00 100 /min [facility] Arterial blood by [facility] Pulse oximetry [place] Body height 2021-11-19 18:48:00 165.1 cm Universi ty [facility] Body weight 2021-11-19 18:48:00 64.411 kg Universi ty [facility] BMI 2021-11-19 18:48:00 23.63 kg/m2 Universi ty [facility] Systolic blood 2021-11-16 19:16:00 112 mm[Hg] Univer sity of pressure [facility] Diastolic blood 2021-11-16 19:16:00 63 mm[Hg] Unive rsity of pressure [facility] Heart rate 2021-11-16 19:16:00 80 /min Universi ty [facility] Body temperature 2021-11-16 19:16:00 36.72 Marguerite [facility] Body height 2021-11-16 19:16:00 165.1 cm Universi ty [facility] Body weight 2021-11-16 19:16:00 63.594 kg Universi ty [facility] BMI 2021-11-16 19:16:00 23.33 kg/m2 [facility] Systolic blood 2021-11-09 19:35:00 116 mm[Hg] Univer sity of pressure [facility] Diastolic blood 2021-11-09 19:35:00 75 mm[Hg] Unive rsity of pressure [facility] Heart rate 2021-11-09 19:35:00 75 /min [facility] Body temperature 2021-11-09 19:35:00 36.5 Marguerite Univ ersity of [facility] Respiratory rate 2021-11-09 19:35:00 18 /min Univ ersity of [facility] Body height 2021-11-09 19:35:00 165.1 cm [facility] Body weight 2021-11-09 19:35:00 63.504 kg [facility] BMI 2021-11-09 19:35:00 23.30 kg/m2 [facility] Systolic blood 2021-11-02 18:30:00 113 mm[Hg] Univer sity of pressure [facility] Diastolic blood 2021-11-02 18:30:00 68 mm[Hg] Unive rsity of pressure [facility] Heart rate 2021-11-02 18:30:00 76 /min [facility] Body temperature 2021-11-02 18:30:00 36.83 Marguerite Univ ers[facility] Body height 2021-11-02 18:30:00 165.1 cm [facility] Body weight 2021-11-02 18:30:00 63.231 kg [facility] BMI 2021-11-02 18:30:00 23.20 kg/m2 [facility] Systolic blood 2021-10-22 20:09:00 101 mm[Hg] Univer sity of pressure [facility] Diastolic blood 2021-10-22 20:09:00 64 mm[Hg] Unive rsity of pressure [facility] Heart rate 2021-10-22 20:09:00 97 /min [facility] Body temperature 2021-10-22 20:09:00 36.72 Marguerite Univ ers[facility] Respiratory rate 2021-10-22 20:09:00 18 /min Univ ersity of [facility] Body height 2021-10-22 20:09:00 165.1 cm [facility] [place] Body weight 2021-10-22 20:09:00 63.141 kg [facility] BMI 2021-10-22 20:09:00 23.16 kg/m2 Universi ty of [facility] Oxygen saturation in 2021-10-22 20:09:00 98 /min University of Arterial blood by [facility] Pulse oximetry Branch Systolic blood 2021-10-08 19:06:00 137 mm[Hg] [facility] [place] Diastolic blood 2021-10-08 19:06:00 75 mm[Hg] Unive rsity of pressure [facility] Heart rate 2021-10-08 19:06:00 96 /min [facility] [place] Body temperature 2021-10-08 19:06:00 37 Marguerite Univ [facility] [place] Body height 2021-10-08 19:06:00 165.1 cm [facility] Body weight 2021-10-08 19:06:00 63.957 kg [facility] BMI 2021-10-08 19:06:00 23.46 kg/m2 [facility] Systolic blood 2021-09-23 19:16:00 121 mm[Hg] Univer sity of pressure [facility] Diastolic blood 2021-09-23 19:16:00 74 mm[Hg] Unive rsity of pressure [facility] Heart rate 2021-09-23 19:16:00 94 /min [facility] Body temperature 2021-09-23 19:16:00 36.72 Marguerite Univ ersity of [facility] Respiratory rate 2021-09-23 19:16:00 18 /min Univ ersity of [facility] Body height 2021-09-23 19:16:00 165.1 cm [facility] Body weight 2021-09-23 19:16:00 62.778 kg [facility] BMI 2021-09-23 19:16:00 23.03 kg/m2 [facility] Oxygen saturation in 2021-09-23 19:16:00 99 /min University Arterial blood by [facility] Pulse oximetry Branch Procedures Procedure Date / Time Performed Performing Clinician Paco palacios CBC WITH DIFF 2021-11-21 09:24:00 Avni Leigh [facility] CENTRAL NEURAXIAL 2021-11-20 07:30:45 [place] [facility] BLOCK Medical Branch CBC WITH DIFF 2021-11-19 18:23:00 Avni Leigh [facility] HEPATITIS B SURFACE 2021-11-19 18:23:00 Avni Leigh [facility] ANTIGEN Medical Branch ADC OR NIKIA ONLY - 2021-11-19 18:23:00 Avni Leigh [facility] Medical [place] HIV 1/2 AG-AB WITH 2021-11-19 18:23:00 Avni [facility] Healthcare REFLEX Medical Branch HB ABO GROUPING 2021-11-19 18:20:00 Daniel [facility] RHO (D) IMMUNE 2021-11-19 18:20:00 Daniel [facility] o [facility] GLOBULIN [facility] Branch CONSENT/REFUSAL FOR 2021-11-16 20:02:49 Doctor Unassigned, No [facility] DIAGNOSIS AND Name Medical Branch TREATMENT ASSIGNMENT OF BENEFITS 2021-11-16 20:02:30 Doctor Unassigned, No [facility] Medical [place] POCT URINALYSIS W/O 2021-11-16 00:00:00 Kasey Zhu [facility] SPECIFIC GRAVITY Medical Branch POCT URINALYSIS W/O 2021-11-09 00:00:00 Kasey Zhu [facility] SPECIFIC GRAVITY Medical [place] >14 WEEKS US 2021-11-02 19:05:34 Avni Leigh [facility] LIMITED [facility] DSU PRE-OP 2021-11-02 05:01:00 Doctor Unassigned, No [facility] [place] POCT URINALYSIS W/O 2021-11-02 00:00:00 Avni Leigh [facility] SPECIFIC GRAVITY Medical Branch POCT URINALYSIS W/O 2021-10-22 20:12:00 Kasey Zhu [facility] SPECIFIC GRAVITY [facility] POCT URINALYSIS W/O 2021-10-08 00:00:00 Avni Leigh [facility] SPECIFIC GRAVITY [facility] POCT URINALYSIS W/O 2021-09-23 19:20:00 Kasey Zhu [facility] SPECIFIC GRAVITY [facility] GLUCOSE 1 HOUR POST 2021-08-27 17:57:00 Avni Leigh [facility] CBC WITH DIFF 2021-08-27 17:57:00 Avni Leigh [facility] ADC OR NIKIA ONLY - 2021-08-27 17:57:00 Avni Leigh [facility] RPR [facility] HIV 1/2 AG-AB WITH 2021-08-27 17:57:00 Avni Leigh [facility] REFLEX [facility] HB ABO GROUPING 2021-08-27 17:27:00 Avni [facility] Encounters Start End Encounter Admission Attending Care Care Encounter Source Date/Time Date/Time Type Type Clinicians Facility Department ID 2021-12-24 2021-12-24 [id number] Univers 13:00:00 13:00:00 [id number] [facility] 2021-11-19 2021-11-21 Hospital Nicolle Crawford NEMB 1.2.840.11 [id number] Univers 12:10:00 18:50:00 Encounter Avni Leigh 350.1.13.10 ity [facility] 4.2.7.2.686 [facility] [id number] [place] [address] Branch 2021-11-20 2021-11-20 Anesthesia Stanislav Park [facility] 1.2.8 40.114 [id number] Univers 01:50:00 14:27:00 Event Carolee Jameson 350.1.13.10 ity of [place] 4.2.7.2.686 [facility] [id number] [place] [id number] Branch 2021-11-19 2021-11-19 Telephone Daniel Avni [facility] 1.2.840.114 [id number] Univers 00:00:00 00:00:00 Cam JAVED 350.1.13.10 i [place] [id number] Wi dical NAL [address] [place] [address] 2021-11-18 2021-11-18 Laboratory Only, Adc Test [facility] 1.2.840. 114 [id number] Univers 13:45:00 14:00:00 Only Nicolle Crawford 350.1.13.10 [place] [id number] [address] 2021-11-18 2021-11-18 Outpatient R [facility] [id number] Univers 13:45:00 13:45:00 [id number] ity [facility] 2021-11-18 2021-11-18 Outpatient R WINNIE [facility] [id number] Univers 13:45:00 13:45:00 NICOLLE huttony [facility] 2021-11-18 2021-11-18 Outpatient R WINNIE, [facility] RAMOS [id number] Univers 13:45:00 13:45:00 NICOLLE turk [facility] 2021-11-16 2021-11-16 Outpatient R MISTY [facility] [id number] Univers 14:15:00 14:36:57 KASEY turk [facility] 2021-11-16 2021-11-16 [facility] [id number] Univers 14:15:00 14:36:57 Kasey BURT 350.1.13.10 ity of [place] [id number] Wi dical NAL [address] [place] [address] 2021-11-16 2021-11-16 Outpatient R MISTY [facility] [id number] Univers 14:15:00 14:15:00 KASEY [id number] ity [facility] 2021-11-09 2021-11-09 Outpatient R MISTY [facility] [id number] Univers 14:30:00 15:06:47 KASEY huttony [facility] 2021-11-09 2021-11-09 Routine Avni Leigh Abeba [facility] 1.2.840.114 [id number] Univers 14:30:00 15:06:47 Kasey Zhu 350.1.13.10 ity of [place] [id number] Wi dical NAL [address] [facility] 2021-11-09 2021-11-09 Outpatient R KATHARINEWALKER [facility] [id number] Univers 14:30:00 14:30:00 [id number] 2021-11-05 2021-11-05 Outpatient R LEIGH AVNI [facility] [id number] Univers 15:15:00 15:15:00 [id number] [facility] 2021-11-05 2021-11-05 Outpatient R AVNI LEIGH [facility] [id number] Univers 15:15:00 15:15:00 [facility] 2021-11-02 2021-11-02 Prorate Clerk 2, Adc Lab [facility] 1.2.840.114 [id number] Univers 14:00:00 14:15:00 Visit Avni Leigh Abeba BURT 350.1.13.10 it[place] [id number] Wi dical [address] 2021-11-02 2021-11-02 Outpatient R [facility] [id number] Univers 14:00:00 14:00:00 [id number] ity [facility] 2021-11-02 2021-11-02 Outpatient R LEIGH AVNI [facility] [id number] Univers 14:00:00 14:00:00 ity [facility] 2021-11-02 2021-11-02 Routine Avni Leigh [facility] [id number] Univers 13:00:00 13:55:06 Abeba BURT 350.1.13.10 ity of [place] [id number] Wi dic[address] 2021-11-02 2021-11-02 Orders Doctor MAURA 1.2.840.114 [id number] Univers 00:00:00 00:00:00 Only Unassigned, RENETTA 350.1.13.10 ity of [place] [facility] 4.2.7.2.686 [place] as [id number] [address] 2021-10-22 2021-10-22 Outpatient R MISTY [facility] [id number] Univers 14:45:00 15:34:52 KASEY ity [facility] 2021-10-22 2021-10-22 Routine Avni Leigh [facility] 1.2.840.114 [id number] Univers 14:45:00 15:34:52 Kasey Zhu 350.1.13.10 ity of [place] [id number] [address] 2021-10-22 2021-10-22 Outpatient R MISTY [facility] [id number] Univers 14:45:00 14:45:00 KASEY [id number] ity [facility] 2021-10-08 2021-10-08 Outpatient R AVNI LEIGH [facility] [id number] Univers 13:00:00 13:43:37 ity [facility] 2021-10-08 2021-10-08 Routine Avni Leigh [place] 1.2.761.451 [id number] Univers 13:00:00 13:43:37 Abeba BURT 350.1.13.10 ity of [place] [id number] Wi dic[address] 2021-10-08 2021-10-08 Outpatient R AVNI LEIGH [facility] [id number]-20 Univers 13:00:00 13:00:00 [id number] ity [facility] 2021-09-28 2021-09-28 Telephone Avni Leigh [place] 1.2.840.114 [id number] Univers 00:00:00 00:00:00 Abeba BURT 350.1.13.10 i ty of [place] [phone] Wi dicnj NAL [address] [facility] 2021-09-23 2021-09-23 Outpatient R MISTY [facility] [id number] Univers 13:00:00 13:28:36 KASEY ity [facility] 2021-09-23 2021-09-23 Routine Misty, [facility] [id number] Univers 13:00:00 13:28:36 Kasey BURT 350.1.13.10 ity of [place] [phone] [facility] [address] [facility] 2021-08-27 2021-08-27 Prorate Clerk 2, Adc Lab [facility] 1.2.840.114 [id number] Univers 10:30:00 10:30:00 Visit Avni LeighJOSE RAUL 350.1.13.10 it[place] of [place] [id number] [facility] [address] [facility] Results Test Description Test Time Test Comments Results Result Comments Source CBC with Differential 2021-11-21 09:52:43 Test Item Value Reference Range Interpretation Comme nts WBC (test code = 6690-2) See_Comment H [A utomated message] The system which Audioms nerated this result transmit yelena reference range: 4.30 - 1 1.10 10*3/?L. The reference r wendy was not used to interpr et this result as normal/abnor mal. RBC (test code = 789-8) See_Comment L [Au tomated message] The system which Audioms nerated this result transmit yelena reference range: 3.93 - 5 .25 10*6/?L. The reference r wendy was not used to interpr et this result as normal/abnor mal. HGB (test code = 718-7) 8.6 g/dL 11.6-15.0 L HCT (test code = 4544-3) 27.6 % 35.7-45.2 L MCV (test code = 787-2) 77.5 fL 80.6-95.5 L MCH (test code = 785-6) 24.2 pg 25.9-32.8 L MCHC (test code = 786-4) 31.2 g/dL 31.6-35.1 L RDW-SD (test code = 09543-9) 45.1 fL 39.0-49.9 RDW-CV (test code = 788-0) 15.9 % 12.0-15.5 H PLT (test code = 777-3) See_Comment [Au tomated message] The system which ge nerated this result transmit yelena reference range: 166 - 35 8 10*3/?L. The reference range was not used to interpret th is result as normal/abnormal . MPV (test code = 63628-2) 10.0 fL 9.5-12.9 NRBC/100 WBC (test code = See_Comment [ Automated message] The 0776138715) system which ge nerated this result transmit yelena reference range: 0.0 - 10 .0 /100 WBCs. The reference r wendy was not used to interpr et this result as normal/abnor mal. NRBC x10^3 (test code = <0.01 See_Comment [Au tomated message] The 3347407382) system which ge nerated this result transmit yelena reference range: 10*3/?L. The reference range was not u sed to interpret this result as normal/abnormal . GRAN MAT (NEUT) % (test code 81.4 % = 770-8) IMM GRAN % (test code = 0.50 % 3059904554) LYMPH % (test code = 736-9) 11.4 % MONO % (test code = 5905-5) 5.9 % EOS % (test code = 713-8) 0.5 % BASO % (test code = 706-2) 0.3 % GRAN MAT x10^3(ANC) (test 10.46 10*3/uL 1.88-7.09 H code = 3569794903) IMM GRAN x10^3 (test code = 0.06 10*3/uL 0.00-0.06 8099368161) LYMPH x10^3 (test code = 1.47 10*3/uL 1.32-3.29 731-0) MONO x10^3 (test code = 0.76 10*3/uL 0.33-0.92 742-7) EOS x10^3 (test code = 0.06 10*3/uL 0.03-0.39 711-2) BASO x10^3 (test code = 0.04 10*3/uL 0.01-0.07 704-7) Lab Interpretation (test Abnormal code = 91021-6) [facility] I[facility] [id number] 18:36:12 Test Item Value Reference Range Interpretation Comments RHIG CANDIDATE? No- see comment Patient i s not a (test code = candidate for R hIg- 5055) Patient is Rh Positive.Perfor med at [facility] Laboratory Services - [facility] Blood Vzqr659 [address] Free: [phone] A No. [id number] [facility] [place]IA ONLY - [id number] 07:56:09 Test Item Value Reference Range Interpretation Comments RPR (Qualitative) (test code = Nonreactive Nonreactive 78906-4) Lab Interpretation (test code = Normal 11992-8) [facility] Surface [id number] 00:39:34 Test Item Value Reference Range Interpretation Comments HBsAg Semi-Quantitative (test code = Negative Negative 5195-3) [facility] AG-AB WITH [id number] 19:45:27 Test Item Value Reference Range Interpretation Comments HIV Negative Negative Semi-quantitative (test code = 48716-8) MIKA (test code = Non-reactive for HIV-1 MIKA) antigen and HIV-1/HIV-2 antibodies. ?No laboratory evidence of HIV infection. ?Repeat in 2-4 weeks if acute HIV infection is suspected. [facility] and Screen - ONCE [id number] 19:02:15 Test Item Value Reference Range Interpretation Comments ABO & RH (test code B Positive Performe d at [facility] = 20) Laboratory Serv ices - [facility] Blood Bank1 [address] [place] [phone] Free: [phone] A No. [id number] IAT (test code = Negative Performed a t [facility] 1185) Laboratory Serv [facility] Blood Bank[address] [place] [phone] Free: [phone] A No. [id number] [facility] with [id number] 18:48:32 Test Item Value Reference Range Interpretation Comments WBC (test code = See_Comment [Automated 6690-2) message] The sy stem which generated this result transmitted reference range : 4.30 - 11.10 10*3/?L. The reference range was not used to interpret this result as normal/abnormal . RBC (test code = See_Comment [Automated 789-8) message] The sy stem which generated this result transmitted reference range : 3.93 - 5.25 10*6/?L. The reference range was not used to interpret this result as normal/abnormal . HGB (test code = 10.1 g/dL 11.6-15.0 L 718-7) HCT (test code = 31.3 % 35.7-45.2 L 4544-3) MCV (test code = 75.8 fL 80.6-95.5 L 787-2) MCH (test code = 24.5 pg 25.9-32.8 L 785-6) MCHC (test code = 32.3 g/dL 31.6-35.1 786-4) RDW-SD (test code = 42.6 fL 39.0-49.9 33055-5) RDW-CV (test code = 15.7 % 12.0-15.5 H 788-0) PLT (test code = See_Comment [Automated 777-3) message] The sy stem which generated this result transmitted reference range : 166 - 358 10*3/ ?L. The reference r wendy was not used to interpret this result as normal/abnormal . MPV (test code = 10.2 fL 9.5-12.9 95958-0) NRBC/100 WBC (test See_Comment [Automat ed code = 5041888672) message] The system which generated this result transmitted reference range : 0.0 - 10.0 /100 WBCs. The refer ence range was not u sed to interpret th is result as normal/abnormal . NRBC x10^3 (test code <0.01 See_Comment [Auto mated = 9367826850) message] The s ystem which generated this result transmitted reference range : 10*3/?L. The reference range was not used to interpret this result as normal/abnormal . GRAN MAT (NEUT) % 78.1 % (test code = 770-8) IMM GRAN % (test code 0.40 % = 8419394994) LYMPH % (test code = 14.4 % 736-9) MONO % (test code = 6.5 % 5905-5) EOS % (test code = 0.2 % 713-8) BASO % (test code = 0.4 % 706-2) GRAN MAT x10^3(ANC) 3.85 10*3/uL 1.88-7.09 (test code = 9732169821) IMM GRAN x10^3 (test <0.03 0.00-0.06 code = 8738425321) LYMPH x10^3 (test code 0.71 10*3/uL 1.32-3.29 L = 731-0) MONO x10^3 (test code 0.32 10*3/uL 0.33-0.92 L = 742-7) EOS x10^3 (test code = <0.03 0.03-0.39 L 711-2) BASO x10^3 (test code <0.03 0.01-0.07 = 704-7) Lab Interpretation Abnormal (test code = 93619-4) [facility] URINALYSIS W/O SPECIFIC [id number] 19:12:00 Test Item Value Reference Range Interpretation Comments POCT PH U (test code = 3254) n/a 5-8 POCT U LEUK EST (test code = n/a Negative - Negative 3263) POCT U NIT (test code = 3262) n/a Negative - Negative POCT U PROT (test code = 3259) Negative Negative - Negative POCT U GLU (test code = 3256) normal Negative - Negative POCT U KETONE (test code = 3258) n/a Negative - Negative POCT U BLD (test code = 3257) n/a Negative - Negative [facility] URINALYSIS W/O SPECIFIC [id number] 19:48:00 Test Item Value Reference Range Interpretation Comments POCT PH U (test code = 3254) n.a 5-8 POCT U LEUK EST (test code = 3263) n.a Negative - Negative POCT U NIT (test code = 3262) n.a Negative - Negative POCT U PROT (test code = 3259) neg Negative - Negative POCT U GLU (test code = 3256) neg Negative - Negative POCT U KETONE (test code = 3258) n.a Negative - Negative POCT U BLD (test code = 3257) n.a Negative - Negative [facility] URINALYSIS W/O SPECIFIC [id number] 18:28:00 Test Item Value Reference Range Interpretation Comments POCT PH U (test code = 3254) n/a 5-8 POCT U LEUK EST (test code = 3263) n/a Negative - Negative POCT U NIT (test code = 3262) n/a Negative - Negative POCT U PROT (test code = 3259) Trace Negative - Negative POCT U GLU (test code = 3256) normal Negative - Negative POCT U KETONE (test code = 3258) n/a Negative - Negative POCT U BLD (test code = 3257) n/a Negative - [facility] [id number] 20:12:00 Test Item Value Reference Range Interpretation Comments POCT PH U (test code = 3254) N/A 5-8 POCT U LEUK EST (test code = N/A Negative - Negative 3263) POCT U NIT (test code = 3262) N/A Negative - Negative POCT U PROT (test code = 3259) Negative Negative - Negative POCT U GLU (test code = 3256) Negative Negative - Negative POCT U KETONE (test code = 3258) N/A Negative - Negative POCT U BLD (test code = 3257) N/A Negative - Negative [facility] BranchPO[facility] URINALYSIS W/O SPECIFIC [id number] 19:49:00 Test Item Value Reference Range Interpretation Comments POCT PH U (test code = 3254) N/A 5-8 POCT U LEUK EST (test code = 3263) N/A Negative - Negative POCT U NIT (test code = 3262) N/A Negative - Negative POCT U PROT (test code = 3259) TRACE Negative - Negative POCT U GLU (test code = 3256) NORMAL Negative - Negative POCT U KETONE (test code = 3258) N/A Negative - Negative POCT U BLD (test code = 3257) N/A Negative - Negative [facility] W/O SPECIFIC [id number] 19:20:00 Test Item Value Reference Range Interpretation Comments POCT PH U (test code = 3254) N/A 5-8 POCT U LEUK EST (test code = N/A Negative - Negative 3263) POCT U NIT (test code = 3262) N/A Negative - Negative POCT U PROT (test code = 3259) Negative Negative - Negative POCT U GLU (test code = 3256) Negative Negative - Negative POCT U KETONE (test code = 3258) N/A Negative - Negative POCT U BLD (test code = 3257) N/A Negative - Negative [facility] [place] ONLY - [id number] 06:16:29 Test Item Value Reference Range Interpretation Comments RPR (Qualitative) (test code = Nonreactive Nonreactive 31579-0) Lab Interpretation (test code = Normal 50392-2) [facility]enPRENATAL WORKUP, BLOOD [id number] 21:43:49 Test Item Value Reference Range Interpretation Comments ABO & RH (test code B POSITIVE Performe d at [facility] = 20) Laboratory Serv [facility] Blood Bank[address] [place] [address] s [address]Kbwp Free: [phone] A No. [id number] IAT (test code = Negative Performed a t [facility] 1185) Laboratory Serv [facility] Blood Bank[address] [place] [address] s [address]Bwvu Free: [phone] A No. [id number] [facility]enHIV [facility]/2 AG-AB WITH [id number] 19:16:07 Test Item Value Reference Range Interpretation Comments HIV Negative Negative Semi-quantitative (test code = 57263-5) MIKA (test code = Non-reactive for HIV-1 MIKA) antigen and HIV-1/HIV-2 antibodies. ?No laboratory evidence of HIV infection. ?Repeat in 2-4 weeks if acute HIV infection is suspected. [facility] 1 HOUR POST [id number] 18:35:57 Test Item Value Reference Range Interpretation Comments GLUC 1 HR (test code = 2061106508) 108 mg/dL 120-170 L Lab Interpretation (test code = Abnormal 17093-7) [facility] WITH [id number] 18:17:58 Test Item Value Reference Range Interpretation Comments WBC (test code = See_Comment [Automated 6690-2) message] The sy stem which generated this result transmitted reference range : 4.30 - 11.10 10*3/?L. The reference range was not used to interpret this result as normal/abnormal . RBC (test code = See_Comment L [Automated 789-8) message] The sy stem which generated this result transmitted reference range : 3.93 - 5.25 10*6/?L. The reference range was not used to interpret this result as normal/abnormal . HGB (test code = 9.5 g/dL 11.6-15.0 L 718-7) HCT (test code = 29.9 % 35.7-45.2 L 4544-3) MCV (test code = 76.3 fL 80.6-95.5 L 787-2) MCH (test code = 24.2 pg 25.9-32.8 L 785-6) MCHC (test code = 31.8 g/dL 31.6-35.1 786-4) RDW-SD (test code = 39.2 fL 39.0-49.9 39128-6) RDW-CV (test code = 14.4 % 12.0-15.5 788-0) PLT (test code = See_Comment [Automated 777-3) message] The sy stem which generated this result transmitted reference range : 166 - 358 10*3/ ?L. The reference r wendy was not used to interpret this result as normal/abnormal . MPV (test code = 10.0 fL 9.5-12.9 75877-5) NRBC/100 WBC (test See_Comment [Automat ed code = 6726890044) message] The system which generated this result transmitted reference range : 0.0 - 10.0 /100 WBCs. The refer ence range was not u sed to interpret th is result as normal/abnormal . NRBC x10^3 (test code <0.01 See_Comment [Auto mated = 5802973297) message] The s ystem which generated this result transmitted reference range : 10*3/?L. The reference range was not used to interpret this result as normal/abnormal . GRAN MAT (NEUT) % 83.6 % (test code = 770-8) IMM GRAN % (test code 0.60 % = 7040161242) LYMPH % (test code = 9.7 % 736-9) MONO % (test code = 5.4 % 5905-5) EOS % (test code = 0.3 % 713-8) BASO % (test code = 0.4 % 706-2) GRAN MAT x10^3(ANC) 7.74 10*3/uL 1.88-7.09 H (test code = 5143534610) IMM GRAN x10^3 (test 0.06 10*3/uL 0.00-0.06 code = 3270689364) LYMPH x10^3 (test code 0.90 10*3/uL 1.32-3.29 L = 731-0) MONO x10^3 (test code 0.50 10*3/uL 0.33-0.92 = 742-7) EOS x10^3 (test code = 0.03 10*3/uL 0.03-0.39 711-2) BASO x10^3 (test code 0.04 10*3/uL 0.01-0.07 = 704-7) Lab Interpretation Abnormal (test code = 25171-0) [facility]
--- NOTE | 2021-12-02 22:24 | ER ---
Nurse's Notes [facility] Name: Davida Zamorano Age: 21 yrs Sex: Female : 2000 Arrival Date: 12/02/2021 Time: 20:49 Bed Waiting Private MD: Diagnosis: Presentation: 12/02 22:15 Chief complaint: Patient states: throbbing headache starting around 2000 and getting lg3 worse. pain in frontal area above eyes. denies taking any medication at home. Coronavirus screen: Client denies travel out of the [place] in the last 14 days. At this time, the client does not indicate any symptoms associated with coronavirus-19. Ebola Screen: No symptoms or risks identified at this time. Initial Sepsis Screen: Does the patient meet any 2 criteria? No. Patient's initial sepsis screen is negative. Does the patient have a suspected source of infection? No. Patient's initial sepsis screen is negative. Risk Assessment: Do you want to hurt yourself or someone else? Patient reports no desire to harm self or others. Onset of symptoms was December 02, 2021. 22:15 Method Of Arrival: Ambulatory lg3 22:15 Acuity: JOSE RAMON 3 lg3 Triage Assessment: 22:18 Headache History: Denies prior headaches. General: Appears in no apparent distress. lg3 uncomfortable, Behavior is calm, cooperative. Pain: Complains of pain in forehead Pain currently is 6 out of 10 on a pain scale. at worst was 10 out of 10 on a pain scale. Pain began 3 hours ago. Also complains of no other associated symptoms. EENT: No deficits noted. No signs and/or symptoms were reported regarding the EENT system. Neuro: No deficits noted. Level of Consciousness is awake, alert, obeys commands, Oriented to person, place, time, situation. Cardiovascular: No deficits noted. Denies chest pain, shortness of breath. Respiratory: No deficits noted. Airway is patent Trachea midline Respiratory effort is even, unlabored, Respiratory pattern is regular, symmetrical. GI: No deficits noted. No signs and/or symptoms were reported involving the gastrointestinal system. : No deficits noted. No signs and/or symptoms were reported regarding the genitourinary system. Derm: No deficits noted. No signs and/or symptoms reported regarding the dermatologic system. Skin is intact, is healthy with good turgor, Skin is dry, Skin is pink, warm \T\ dry. Musculoskeletal: No deficits noted. No signs and/or symptoms reported regarding the musculoskeletal system. Circulation, motion, and sensation intact. Capillary refill < 3 seconds, Range of motion: intact in all extremities. 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 - Social history:: Smoking status: Patient denies any tobacco usage or history of. Patient/guardian denies using alcohol, street drugs. Vital Signs: 22:15 BP 134 / 85; Pulse 85; Resp 17; Temp 97.9; Pulse Ox 100% on R/A; Weight 63.5 kg (R); lg3 Height 5 ft. 5 in. (165.10 cm) (R); Pain 6/10; 22:15 Body Mass Index 23.30 (63.50 kg, 165.10 cm) lg3 ED Course: 20:49 Patient arrived in ED. mr 22:18 Triage completed. lg3 22:18 Arm band placed on right wrist. lg3 Administered Medications: No medications were administered Outcome: 22:24 Patient left the ED. lg3 Signatures: Nay Sagastume Lacie, RN RN lg3
[2021-12-02 22:51] VITALS: BP 134/85; TEMP 97.9; O2SAT 100
== END 2021-12-02 22:24 | disposition left against medical advice (07) ==
LOC: ER 20:45
DX: Z53.21 Procedure and treatment not carried out due to patient leaving prior to being seen by health care provider (principal)
CPT/HCPCS: 99281

== ENCOUNTER 2023-12-30 08:52 | Emergency (ER) | payer OTHER ==
--- OUTSIDE RECORDS SUMMARY | 2023-12-30 09:01 | XMS REPORT | Continuity of Care Document ---
Author Name Unknown Address [address] [place] [address] [facility] Address [address] [place] [address] Care Team Providers Care Toolroom Helper Name Role Phone Chata Reis MD Primary Care Physician + [phone] CHATA REIS Attending Clinician Unavailable AVNI LEIGH Attending Clinician Unavailable Avni Leigh MD Attending Clinician [phone] NAY SAN Attending Clinician Unavailable Nay San MD Attending Clinician [phone] Unknown, Attending Attending Clinician Unavailab ALEJANDRA Aragon Attending Clinician Unavailable Chata Reis MD Attending Clinician [phone] OBI-ALISHA MORENITA Attending Clinician Unavailab heather OBI-MORENITA BRITO Attending Clinician Unavailab le 2, [facility] Attending Clinician Unavailable ROSITA RECINOS Attending Clinician Unavailable Rosita Voss Attending Clinician [phone] KAYLA BILLINGS Attending Clinician Unavailab Kayla Patino DO Attending Clinician [phone] KRISTEL WEN Attending Clinician Unavailable Kristel Sepulveda Attending Clinician [phone] Doctor Unassigned, [place] Attending Clinician Maura Waddell MD Attending Clinician [phone] MAURA MEMBRENO Attending Clinician Unavailable Only, Adc Test Attending Clinician Unavailable Max Rasmussen MD Attending Clinician [phone] MAX RASMUSSEN Attending Clinician UnavailSharri WILCOX, Jazmyne Attending Clinician JAZMYNE TORRES Attending Clinician Unavailab Nicolle Becerril MD Attending Clinician [phone] Stanislav Park MD Attending Clinician + [phone] Carolee Jameson MD Attending Clinician +[phone] NICOLLE CRAWFORD Attending Clinician Unavailable SOPHIA JAY Attending Clinician Unavailable Misty ALLAN, Sophia Attending Clinician [phone] DINORAH SYKES Attending Clinician Unavailab Cornelia Bhardwaj RN Attending Clinician Unavaila MAIRA Morris Attending Clinician Unavailable Arun MEDELLIN, Maira Horton Attending Clinician + [phone] Oscar ENRIQUEP, Jenny Millard Attending Clinician [phone] Ultrasound, Ang-Mfm Attending Clinician UnavailNataly Brown MD Attending Clinician [phone] NATALY WOODWARD Attending Clinician Unavailable DAVID BISHOP Attending Clinician Unavail able Provider, [facility] Attending Clinician Josey vailable Charmaine WHPDavid Attending Clinician + Dinorah Go Attending Clinician + [phone] Francois Espino MD Attending Clinician [phone] Rose Maria RN Attending Clinician Unavailjami Clinton MD, Desiree Attending Clinician [phone] MELISSA JENKINS Attending Clinician Unavail able Pob, [facility] Lab Main Attending Clinician UnavailMarlo WILCOX, Jovanna Attending Clinician [phone] JOVANNA MENDEZ Attending Clinician Unavailable Ilene Ventura MD Attending Clinician + [phone] ILENE VENTURA Attending Clinician Unavaila ELIO Dent Attending Clinician Unavailable FRANCOIS ESPINO Attending Clinician Unavailable Sydnie Cuevas Attending Clinician [phone] Joy Saenz Attending Clinician [phone] Ari Mckeon Attending Clinician Lab, Ang-Rmchp Attending Clinician Unavailable Yas Izaguirre Attending Clinician + MORENITA HUNT Admitting Clinician UnavailMAURA Leone Admitting Clinician Unavailable Maura Membreno MD Admitting Clinician [phone] Avni Leigh MD Admitting Clinician [phone] AVNI LEIGH Admitting Clinician Unavailable MAIRA ENRIQUEZ Admitting Clinician Unavailable Payers Payer Name Policy Type Policy Number Effective Date Expirati on Date Source [facility] [id number] 2014 00:00:00 [facility] [id number] 2023 00:00:00 Problems Condition Name Condition Details Condition Category Status Onset Date Resolution Date Last Treatment Date Treating Clinician Comments Source of unknown anatomic location of unknown anatomic location Disease Active 20 00:00: 00 [facility] Helicobact er pylori gastritis Helicobact er pylori gastritis Disease Active 12-07 00:00: 00 [facility] Nausea and vomiting, unspecifie d vomiting type Nausea and vomiting, unspecifie d vomiting type Disease Active 12-07 00:00: 00 [facility] Nausea Nausea Disease Active 5-02 00:00: 00 [facility] Ganglion cyst Ganglion cyst Disease Active 6-22 00:00: 00 Overview: Formattin g of this note might be different from the original. Added automatic ally from request for surgery [id number] [facility] Maternal varicella, non-immune Maternal varicella, non-immune Disease Active 8-31 00:00: 00 Overview: Formattin g of this note might be different from the original. Address in [facility] History of depression History of depression Disease Active 830 00:00: 00 [facility] Anxiety, generalize d Anxiety, generalize d Disease Active 4- 00:00: 00 [facility] Menorrhagi a with irregular cycle Menorrhagi a with irregular cycle Disease Active 2- 00:00: 00 Overview: Formattin g of this note might be different from the original. 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 Vyvanse prescribe d in the past - patient discontin ued, non compliant - states it did not work. She was taking 10 mg q am. [facility] Mild intermitte nt asthma without complicati on Mild intermitte nt asthma without complicati on Disease Active 2017-08 0 00:00: 00 [facility] Chronic allergic rhinitis Chronic allergic rhinitis Disease Active 2017-08 0 00:00: 00 [facility] Iron deficiency anemia secondary to inadequate dietary iron intake Iron deficiency anemia secondary to inadequate dietary iron intake Disease Active 04-08 00:00: 00 Overview: Formattin g of this note might be different from the original. Last CBC 12/2017, ferrous sulfate prescribe d. [facility] Allergies, Adverse Reactions, Alerts Allergy Name Allergy Type Status Severity Reaction(s) Onset Date Inactive Date Treating Clinician Comments Source NO KNOWN ALLERGIE S Drug Class Active [facility] Social History Social Habit Start Date Stop Date Quantity Comments Source History of tobacco use Passive smoker [facility] Gender identity [facility] Sexual orientation [facility] ASSERTION [facility] Alcoholic beverage intake 2023-12-26 00:00:00 2023-12-26 00:00:00 0 /d [facility] Alcohol intake 2023-12-08 00:00:00 2023-12-08 00:00:00 0 /d [facility] History of Social function 2023-12-08 00:00:00 2023-12-08 00:00:00 [facility] Exposure to SARS-CoV-2 (event) 2022-10-12 00:00:00 2022-10-22 13:34:00 Not sure [facility] Tobacco use and exposure 2022-04-21 00:00:00 2022-04-21 00:00:00 Smokeless tobacco non-user [facility] Sex assigned at 2001 00:00:00 2000 00:00:00 [facility] Smoking Status Start Date Stop Date Source Never smoked tobacco [facility] Medications Ordered Medication Name Filled Medication Name Start Date Stop Date Current Medication? Ordering Clinician Indication Dosage Frequency Signature (SIG) Comments Components Source metroNIDAZO LE (FLAGYL) 500 mg tablet 12-26 00:00: 00 01-03 04:59 :00 Yes [id number] 500mg Take 1 tablet by mouth in the morning and 1 tablet in the evening. Do all this for 7 days. [facility] fluconazole 150 mg tablet 12-26 00:00: 00 12-27 04:59 :00 Yes [id number] 150mg Take 1 tablet by mouth once now for 1 dose. [facility] pyridoxine, VITAMIN B-6, (VITAMIN B-6) 25 mg tablet 12-25 00:00: 00 Yes [id number] 25mg Take 1 tablet by mouth every 6 (six) hours as needed for Nausea and Vomiting (N/V). [facility] doxylamine (UNISOM, DOXYLAMINE, ) 25 mg tablet 12-25 00:00: 00 Yes [id number] 25mg Take 1 tablet by mouth at bedtime as needed for Nausea and Vomiting (N/V). [facility] amoxicillin -clavulanat e (AUGMENTIN) 875-125 mg per tablet 12-20 00:00: 00 12-31 04:59 :00 Yes [id number] 1{tbl} Take 1 tablet by mouth in the morning and 1 tablet in the evening. Do all this for 10 days. [facility] albuterol 2.5 mg /3 mL (0.083 %) nebulizer solution 12-10 00:00: 00 Yes [id number] 2.5mg Inhale 3 mL every 6 (six) hours as needed for Wheezing or Shortness of Breath. [facility] pantoprazol e 40 mg EC tablet 12-07 00:00: 00 Yes [id number] 40mg Take 1 tablet by mouth in the morning. [facility] ondansetron 4 mg disintegrat ing tablet 12-07 00:00: 00 Yes [id number] 4mg Take 1 tablet by mouth every 8 (eight) hours as needed for Nausea and Vomiting (N/V). [facility] albuterol (VENTOLIN HFA) 90 mcg/actuati on inhaler 12-07 00:00: 00 Yes [id number] 2{puff} Inhale 2 Puffs every 6 (six) hours as needed for Wheezing or Shortness of Breath. [facility] ipratropium 0.02 % nebulizer solution 12-07 00:00: 00 Yes [id number] .5mg Inhale 2.5 mL every 6 (six) hours as needed for Wheezing or Shortness of Breath. [facility] 12-07 00:00: 00 Yes [id number] J40: Antolin - Dispense # 1 Marlon Respironic s (okay for alternativ e brand) for nebulizer treatment [facility] ascorbic acid, vitamin C, (VITAMIN C) 500 mg tablet 12-07 00:00: 00 Yes [id number] 500mg Take 1 tablet by mouth in the morning. [facility] albuterol 2.5 mg /3 mL (0.083 %) nebulizer solution 12-07 00:00: 00 12-10 00:00 :00 No [id number] 2.5mg Inhale 3 mL every 4 (four) hours as needed for Wheezing or Shortness of Breath. [facility] ferrous sulfate 325 mg (65 mg iron) tablet 17 00:00: 00 Yes [id number] 325mg Take 1 tablet by mouth in the morning. [facility] ondansetron 4 mg disintegrat ing tablet 17 00:00: 00 12-07 00:00 :00 No [id number] 4mg Take 1 tablet by mouth every 8 (eight) hours as needed for Nausea and Vomiting (N/V). [facility] VENTOLIN HFA 90 mcg/actuati on inhaler 8-14 00:00: 00 12-07 00:00 :00 No [id number] INHALE 2 PUFFS BY MOUTH EVERY 6 HOURS NEEDED FOR WHEEZING OR SHORTNESS OF BREATH [facility] amoxicillin 500 mg capsule 02-21 00:00: 00 03-04 04:59 :00 No [id number] 500mg Take 1 capsule by mouth in the morning and 1 capsule in the evening. Do all this for 10 days. [facility] penicillin g benzathine (BICILLIN L-A) injection 1.2 Million Units 02-20 14:45: 00 02-20 14:49 :00 No 1.210 1.2 Million Units, Intramuscu lar, ONCE, 1 dose, On 02/20/23 at 0945, TULIO
Re ason for Anti-Infec tive: Documented Infection< br>Documen yelena Infection Site: HEENT
D uration of Therapy: 7 days [facility] VENTOLIN HFA 90 mcg/actuati on inhaler 7-12 00:00: 00 Yes [id number] INHALE 2 PUFFS BY MOUTH EVERY 6 HOURS NEEDED FOR WHEEZING OR SHORTNESS OF BREATH [facility] VENTOLIN HFA 90 mcg/actuati on inhaler 5-08 00:00: 00 Yes [id number] INHALE 2 PUFFS BY MOUTH EVERY 6 HOURS NEEDED FOR WHEEZING OR SHORTNESS OF BREATH [facility] VENTOLIN HFA 90 mcg/actuati on inhaler 11-11 00:00: 00 Yes [id number] INHALE 2 PUFFS BY MOUTH EVERY 6 HOURS NEEDED FOR WHEEZING OR SHORTNESS OF BREATH [facility] albuterol 90 mcg/actuati on inhaler 10-22 14:08: 36 10-22 00:00 :00 No 2{puff} Inhale 2 Puffs every 6 (six) hours as needed for Wheezing or Shortness of Breath. [facility] ferrous sulfate 325 mg (65 mg iron) tablet 10-22 00:00: 00 11-22 00:00 :00 No [id number] 325mg Take 1 tablet by mouth in the morning and 1 tablet in the evening. [facility] albuterol 90 mcg/actuati on inhaler 10-22 00:00: 00 11-11 00:00 :00 No [id number] 2{puff} Inhale 2 Puffs every 6 (six) hours as needed for Wheezing or Shortness of Breath. [facility] No known medications 1-05 19:15: 14 No No known medication s [facility] No known medications 9-14 14:51: 01 No No known medication s [facility] Immunizations Ordered Immunization Name Filled Immunization Name Date Status Comments Source HPV9 2018-07-07 00:00:00 Completed [facility] HPV9 2018-07-07 00:00:00 Completed [facility] HPV9 2018-07-07 00:00:00 Completed [facility] HPV9 2018-07-07 00:00:00 Completed [facility] HPV9 2018-07-07 00:00:00 Completed [facility] HPV9 2018-07-07 00:00:00 Completed [facility] HPV9 2018-07-07 00:00:00 Completed [facility] HPV9 2018-07-07 00:00:00 Completed [facility] HPV9 2018-07-07 00:00:00 Completed [facility] HPV9 2018-07-07 00:00:00 Completed [facility] HPV9 2018-07-07 00:00:00 Completed [facility] HPV9 2018-07-07 00:00:00 Completed [facility] 2018-07-07 00:00:00 Completed [facility] 2018-07-07 00:00:00 Completed [facility] 2018-07-07 00:00:00 Completed [facility] 2018-07-07 00:00:00 Completed [facility] 2018-07-07 00:00:00 Completed [facility] Meningococcal B, OMV 2018-03-21 00:00:00 Completed [facility] Meningococcal B, OMV 2018-03-21 00:00:00 Completed [facility] Meningococcal B, OMV 2018-03-21 00:00:00 Completed [facility] Meningococcal B, OMV 2018-03-21 00:00:00 Completed [facility] Meningococcal B, OMV 2018-03-21 00:00:00 Completed [facility] Meningococcal B, OMV 2018-03-21 00:00:00 Completed [facility] Meningococcal B, OMV 2018-03-21 00:00:00 Completed [facility] Meningococcal B, OMV 2018-03-21 00:00:00 Completed [facility] Meningococcal B, OMV 2018-03-21 00:00:00 Completed [facility] Meningococcal B, OMV 2018-03-21 00:00:00 Completed [facility] Meningococcal B, OMV 2018-03-21 00:00:00 Completed [facility] Meningococcal B, OMV 2018-03-21 00:00:00 Completed [facility] Meningococcal B, OMV 2018-03-21 00:00:00 Completed [facility] Meningococcal B, OMV 2018-03-21 00:00:00 Completed [facility] Meningococcal B, OMV 2018-03-21 00:00:00 Completed [facility] Meningococcal B, OMV 2018-03-21 00:00:00 Completed [facility] Meningococcal B, OMV 2018-03-21 00:00:00 Completed [facility] Meningococcal Polysaccharide (groups A, C, Y and W-135) conjugate vaccine (MCV4P) 2018-01-03 00:00:00 Completed [facility] Meningococcal B, OMV 2018-01-03 00:00:00 Completed [facility] HPV9 2018-01-03 00:00:00 Completed [facility] HEPATITIS A 2018-01-03 00:00:00 Completed [facility] Meningococcal Polysaccharide (groups A, C, Y and W-135) conjugate vaccine (MCV4P) 2018-01-03 00:00:00 Completed [facility] Meningococcal B, OMV 2018-01-03 00:00:00 Completed [facility] HPV9 2018-01-03 00:00:00 Completed [facility] HEPATITIS A 2018-01-03 00:00:00 Completed [facility] Meningococcal Polysaccharide (groups A, C, Y and W-135) conjugate vaccine (MCV4P) 2018-01-03 00:00:00 Completed [facility] Meningococcal B, OMV 2018-01-03 00:00:00 Completed [facility] HPV9 2018-01-03 00:00:00 Completed [facility] HEPATITIS A 2018-01-03 00:00:00 Completed [facility] Meningococcal Polysaccharide (groups A, C, Y and W-135) conjugate vaccine (MCV4P) 2018-01-03 00:00:00 Completed [facility] Meningococcal B, OMV 2018-01-03 00:00:00 Completed [facility] HPV9 2018-01-03 00:00:00 Completed [facility] HEPATITIS A 2018-01-03 00:00:00 Completed [facility] Meningococcal Polysaccharide (groups A, C, Y and W-135) conjugate vaccine (MCV4P) 2018-01-03 00:00:00 Completed [facility] Meningococcal B, OMV 2018-01-03 00:00:00 Completed [facility] HPV9 2018-01-03 00:00:00 Completed [facility] HEPATITIS A 2018-01-03 00:00:00 Completed [facility] Meningococcal Polysaccharide (groups A, C, Y and W-135) conjugate vaccine (MCV4P) 2018-01-03 00:00:00 Completed [facility] Meningococcal B, OMV 2018-01-03 00:00:00 Completed [facility] HPV9 2018-01-03 00:00:00 Completed [facility] HEPATITIS A 2018-01-03 00:00:00 Completed [facility] Meningococcal Polysaccharide (groups A, C, Y and W-135) conjugate vaccine (MCV4P) 2018-01-03 00:00:00 Completed [facility] Meningococcal B, OMV 2018-01-03 00:00:00 Completed [facility] HPV9 2018-01-03 00:00:00 Completed [facility] HEPATITIS A 2018-01-03 00:00:00 Completed [facility] Meningococcal Polysaccharide (groups A, C, Y and W-135) conjugate vaccine (MCV4P) 2018-01-03 00:00:00 Completed [facility] Meningococcal B, OMV 2018-01-03 00:00:00 Completed [facility] HPV9 2018-01-03 00:00:00 Completed [facility] HEPATITIS A 2018-01-03 00:00:00 Completed [facility] Meningococcal Polysaccharide (groups A, C, Y and W-135) conjugate vaccine (MCV4P) 2018-01-03 00:00:00 Completed [facility] Meningococcal B, OMV 2018-01-03 00:00:00 Completed [facility] HPV9 2018-01-03 00:00:00 Completed [facility] HEPATITIS A 2018-01-03 00:00:00 Completed [facility] Meningococcal Polysaccharide (groups A, C, Y and W-135) conjugate vaccine (MCV4P) 2018-01-03 00:00:00 Completed [facility] Meningococcal B, OMV 2018-01-03 00:00:00 Completed [facility] HPV9 2018-01-03 00:00:00 Completed [facility] HEPATITIS A 2018-01-03 00:00:00 Completed [facility] Meningococcal Polysaccharide (groups A, C, Y and W-135) conjugate vaccine (MCV4P) 2018-01-03 00:00:00 Completed [facility] Meningococcal B, OMV 2018-01-03 00:00:00 Completed [facility] HPV9 2018-01-03 00:00:00 Completed [facility] HEPATITIS A 2018-01-03 00:00:00 Completed [facility] Meningococcal Polysaccharide (groups A, C, Y and W-135) conjugate vaccine (MCV4P) 2018-01-03 00:00:00 Completed [facility] Meningococcal B, OMV 2018-01-03 00:00:00 Completed [facility] HPV9 2018-01-03 00:00:00 Completed [facility] HEPATITIS A 2018-01-03 00:00:00 Completed [facility] Meningococcal Polysaccharide (groups A, C, Y and W-135) conjugate vaccine (MCV4P) 2018-01-03 00:00:00 Completed [facility] Meningococcal B, OMV 2018-01-03 00:00:00 Completed [facility] HPV9 2018-01-03 00:00:00 Completed [facility] HEPATITIS A 2018-01-03 00:00:00 Completed [facility] Meningococcal Polysaccharide (groups A, C, Y and W-135) conjugate vaccine (MCV4P) 2018-01-03 00:00:00 Completed [facility] Meningococcal B, OMV 2018-01-03 00:00:00 Completed [facility] HPV9 2018-01-03 00:00:00 Completed [facility] HEPATITIS A 2018-01-03 00:00:00 Completed [facility] Meningococcal Polysaccharide (groups A, C, Y and W-135) conjugate vaccine (MCV4P) 2018-01-03 00:00:00 Completed [facility] Meningococcal B, OMV 2018-01-03 00:00:00 Completed [facility] HPV9 2018-01-03 00:00:00 Completed [facility] HEPATITIS A 2018-01-03 00:00:00 Completed [facility] Meningococcal Polysaccharide (groups A, C, Y and W-135) conjugate vaccine (MCV4P) 2018-01-03 00:00:00 Completed [facility] Meningococcal B, OMV 2018-01-03 00:00:00 Completed [facility] HPV9 2018-01-03 00:00:00 Completed [facility] HEPATITIS A 2018-01-03 00:00:00 Completed [facility] Meningococcal Polysaccharide (groups A, C, Y and W-135) conjugate vaccine (MCV4P) 2018-01-03 00:00:00 Completed [facility] Meningococcal B, OMV 2018-01-03 00:00:00 Completed [facility] HPV9 2018-01-03 00:00:00 Completed [facility] HEPATITIS A 2018-01-03 00:00:00 Completed [facility] HPV 2015-09-04 00:00:00 Completed [facility] HPV 2015-09-04 00:00:00 Completed [facility] HPV 2015-09-04 00:00:00 Completed [facility] HPV 2015-09-04 00:00:00 Completed [facility] HPV 2015-09-04 00:00:00 Completed [facility] HPV 2015-09-04 00:00:00 Completed [facility] HPV 2015-09-04 00:00:00 Completed [facility] HPV 2015-09-04 00:00:00 Completed [facility] HPV 2015-09-04 00:00:00 Completed [facility] HPV 2015-09-04 00:00:00 Completed [facility] HPV 2015-09-04 00:00:00 Completed [facility] HPV 2015-09-04 00:00:00 Completed [facility] HPV 2015-09-04 00:00:00 Completed [facility] HPV 2015-09-04 00:00:00 Completed [facility] HPV 2015-09-04 00:00:00 Completed [facility] HPV 2015-09-04 00:00:00 Completed [facility] HPV 2015-09-04 00:00:00 Completed [facility] Meningococcal Vaccine 2014-12-26 00:00:00 Completed [facility] TDAP 2014-12-26 00:00:00 Completed [facility] Varicella (varivax)(chicken pox) 2014-12-26 00:00:00 Completed [facility] Meningococcal Vaccine 2014-12-26 00:00:00 Completed [facility] TDAP 2014-12-26 00:00:00 Completed [facility] Varicella (varivax)(chicken pox) 2014-12-26 00:00:00 Completed [facility] Meningococcal Vaccine 2014-12-26 00:00:00 Completed [facility] TDAP 2014-12-26 00:00:00 Completed [facility] Varicella (varivax)(chicken pox) 2014-12-26 00:00:00 Completed [facility] Meningococcal Vaccine 2014-12-26 00:00:00 Completed [facility] TDAP 2014-12-26 00:00:00 Completed [facility] Varicella (varivax)(chicken pox) 2014-12-26 00:00:00 Completed [facility] Meningococcal Vaccine 2014-12-26 00:00:00 Completed [facility] TDAP 2014-12-26 00:00:00 Completed [facility] Varicella (varivax)(chicken pox) 2014-12-26 00:00:00 Completed [facility] Meningococcal Vaccine 2014-12-26 00:00:00 Completed [facility] TDAP 2014-12-26 00:00:00 Completed [facility] Varicella (varivax)(chicken pox) 2014-12-26 00:00:00 Completed [facility] Meningococcal Vaccine 2014-12-26 00:00:00 Completed [facility] TDAP 2014-12-26 00:00:00 Completed [facility] Varicella (varivax)(chicken pox) 2014-12-26 00:00:00 Completed [facility] Meningococcal Vaccine 2014-12-26 00:00:00 Completed [facility] TDAP 2014-12-26 00:00:00 Completed [facility] Varicella (varivax)(chicken pox) 2014-12-26 00:00:00 Completed [facility] Meningococcal Vaccine 2014-12-26 00:00:00 Completed [facility] TDAP 2014-12-26 00:00:00 Completed [facility] Varicella (varivax)(chicken pox) 2014-12-26 00:00:00 Completed [facility] Meningococcal Vaccine 2014-12-26 00:00:00 Completed [facility] TDAP 2014-12-26 00:00:00 Completed [facility] Varicella (varivax)(chicken pox) 2014-12-26 00:00:00 Completed [facility] Meningococcal Vaccine 2014-12-26 00:00:00 Completed [facility] TDAP 2014-12-26 00:00:00 Completed [facility] Varicella (varivax)(chicken pox) 2014-12-26 00:00:00 Completed [facility] Meningococcal Polysaccharide (groups A, C, Y and W-135) conjugate vaccine (MCV4P) 2014-12-26 00:00:00 Completed [facility] Meningococcal Vaccine 2014-12-26 00:00:00 Completed [facility] TDAP 2014-12-26 00:00:00 Completed [facility] Varicella (varivax)(chicken pox) 2014-12-26 00:00:00 Completed [facility] Meningococcal Polysaccharide (groups A, C, Y and W-135) conjugate vaccine (MCV4P) 2014-12-26 00:00:00 Completed [facility] Meningococcal Vaccine 2014-12-26 00:00:00 Completed [facility] TDAP 2014-12-26 00:00:00 Completed [facility] Varicella (varivax)(chicken pox) 2014-12-26 00:00:00 Completed [facility] Meningococcal Polysaccharide (groups A, C, Y and W-135) conjugate vaccine (MCV4P) 2014-12-26 00:00:00 Completed [facility] Meningococcal Vaccine 2014-12-26 00:00:00 Completed [facility] TDAP 2014-12-26 00:00:00 Completed [facility] Varicella (varivax)(chicken pox) 2014-12-26 00:00:00 Completed [facility] Meningococcal Polysaccharide (groups A, C, Y and W-135) conjugate vaccine (MCV4P) 2014-12-26 00:00:00 Completed [facility] Meningococcal Vaccine 2014-12-26 00:00:00 Completed [facility] TDAP 2014-12-26 00:00:00 Completed [facility] Varicella (varivax)(chicken pox) 2014-12-26 00:00:00 Completed [facility] Meningococcal Polysaccharide (groups A, C, Y and W-135) conjugate vaccine (MCV4P) 2014-12-26 00:00:00 Completed [facility] Meningococcal Vaccine 2014-12-26 00:00:00 Completed [facility] TDAP 2014-12-26 00:00:00 Completed [facility] Varicella (varivax)(chicken pox) 2014-12-26 00:00:00 Completed [facility] Meningococcal Polysaccharide (groups A, C, Y and W-135) conjugate vaccine (MCV4P) 2014-12-26 00:00:00 Completed [facility] Meningococcal Vaccine 2014-12-26 00:00:00 Completed [facility] TDAP 2014-12-26 00:00:00 Completed [facility] Varicella (varivax)(chicken pox) 2014-12-26 00:00:00 Completed [facility] Meningococcal Polysaccharide (groups A, C, Y and W-135) conjugate vaccine (MCV4P) 2014-12-26 00:00:00 Completed [facility] DTAP 2006-03-15 00:00:00 Completed [facility] HEPATITIS A 2006-03-15 00:00:00 Completed [facility] MMR 2006-03-15 00:00:00 Completed [facility] Polio (IPV/OPV) 2006-03-15 00:00:00 Completed [facility] Pneumococcal 7 Conjugate, PCV7 (Prevnar7) 2006-03-15 00:00:00 Completed [facility] DTAP 2006-03-15 00:00:00 Completed [facility] HEPATITIS A 2006-03-15 00:00:00 Completed [facility] MMR 2006-03-15 00:00:00 Completed [facility] Polio (IPV/OPV) 2006-03-15 00:00:00 Completed [facility] Pneumococcal 7 Conjugate, PCV7 (Prevnar7) 2006-03-15 00:00:00 Completed [facility] DTAP 2006-03-15 00:00:00 Completed [facility] HEPATITIS A 2006-03-15 00:00:00 Completed [facility] MMR 2006-03-15 00:00:00 Completed [facility] Polio (IPV/OPV) 2006-03-15 00:00:00 Completed [facility] Pneumococcal 7 Conjugate, PCV7 (Prevnar7) 2006-03-15 00:00:00 Completed [facility] DTAP 2006-03-15 00:00:00 Completed [facility] HEPATITIS A 2006-03-15 00:00:00 Completed [facility] MMR 2006-03-15 00:00:00 Completed [facility] Polio (IPV/OPV) 2006-03-15 00:00:00 Completed [facility] Pneumococcal 7 Conjugate, PCV7 (Prevnar7) 2006-03-15 00:00:00 Completed [facility] DTAP 2006-03-15 00:00:00 Completed [facility] HEPATITIS A 2006-03-15 00:00:00 Completed [facility] MMR 2006-03-15 00:00:00 Completed [facility] Polio (IPV/OPV) 2006-03-15 00:00:00 Completed [facility] Pneumococcal 7 Conjugate, PCV7 (Prevnar7) 2006-03-15 00:00:00 Completed [facility] DTAP 2006-03-15 00:00:00 Completed [facility] HEPATITIS A 2006-03-15 00:00:00 Completed [facility] MMR 2006-03-15 00:00:00 Completed [facility] Polio (IPV/OPV) 2006-03-15 00:00:00 Completed [facility] Pneumococcal 7 Conjugate, PCV7 (Prevnar7) 2006-03-15 00:00:00 Completed [facility] DTAP 2006-03-15 00:00:00 Completed [facility] HEPATITIS A 2006-03-15 00:00:00 Completed [facility] MMR 2006-03-15 00:00:00 Completed [facility] Polio (IPV/OPV) 2006-03-15 00:00:00 Completed [facility] Pneumococcal 7 Conjugate, PCV7 (Prevnar7) 2006-03-15 00:00:00 Completed [facility] DTAP 2006-03-15 00:00:00 Completed [facility] HEPATITIS A 2006-03-15 00:00:00 Completed [facility] MMR 2006-03-15 00:00:00 Completed [facility] Polio (IPV/OPV) 2006-03-15 00:00:00 Completed [facility] Pneumococcal 7 Conjugate, PCV7 (Prevnar7) 2006-03-15 00:00:00 Completed [facility] DTAP 2006-03-15 00:00:00 Completed [facility] HEPATITIS A 2006-03-15 00:00:00 Completed [facility] MMR 2006-03-15 00:00:00 Completed [facility] Polio (IPV/OPV) 2006-03-15 00:00:00 Completed [facility] Pneumococcal 7 Conjugate, PCV7 (Prevnar7) 2006-03-15 00:00:00 Completed [facility] DTAP 2006-03-15 00:00:00 Completed [facility] HEPATITIS A 2006-03-15 00:00:00 Completed [facility] MMR 2006-03-15 00:00:00 Completed [facility] Polio (IPV/OPV) 2006-03-15 00:00:00 Completed [facility] Pneumococcal 7 Conjugate, PCV7 (Prevnar7) 2006-03-15 00:00:00 Completed [facility] DTAP 2006-03-15 00:00:00 Completed [facility] HEPATITIS A 2006-03-15 00:00:00 Completed [facility] MMR 2006-03-15 00:00:00 Completed [facility] Polio (IPV/OPV) 2006-03-15 00:00:00 Completed [facility] Pneumococcal 7 Conjugate, PCV7 (Prevnar7) 2006-03-15 00:00:00 Completed [facility] DTaP, Unspecified Formulation 2006-03-15 00:00:00 Completed [facility] IPV 2006-03-15 00:00:00 Completed [facility] DTAP 2006-03-15 00:00:00 Completed [facility] HEPATITIS A 2006-03-15 00:00:00 Completed [facility] MMR 2006-03-15 00:00:00 Completed [facility] Polio (IPV/OPV) 2006-03-15 00:00:00 Completed [facility] Pneumococcal 7 Conjugate, PCV7 (Prevnar7) 2006-03-15 00:00:00 Completed [facility] DTaP, Unspecified Formulation 2006-03-15 00:00:00 Completed [facility] IPV 2006-03-15 00:00:00 Completed [facility] DTAP 2006-03-15 00:00:00 Completed [facility] HEPATITIS A 2006-03-15 00:00:00 Completed [facility] MMR 2006-03-15 00:00:00 Completed [facility] Polio (IPV/OPV) 2006-03-15 00:00:00 Completed [facility] Pneumococcal 7 Conjugate, PCV7 (Prevnar7) 2006-03-15 00:00:00 Completed [facility] DTaP, Unspecified Formulation 2006-03-15 00:00:00 Completed [facility] IPV 2006-03-15 00:00:00 Completed [facility] DTAP 2006-03-15 00:00:00 Completed [facility] HEPATITIS A 2006-03-15 00:00:00 Completed [facility] MMR 2006-03-15 00:00:00 Completed [facility] Polio (IPV/OPV) 2006-03-15 00:00:00 Completed [facility] Pneumococcal 7 Conjugate, PCV7 (Prevnar7) 2006-03-15 00:00:00 Completed [facility] DTaP, Unspecified Formulation 2006-03-15 00:00:00 Completed [facility] IPV 2006-03-15 00:00:00 Completed [facility] DTAP 2006-03-15 00:00:00 Completed [facility] HEPATITIS A 2006-03-15 00:00:00 Completed [facility] MMR 2006-03-15 00:00:00 Completed [facility] Polio (IPV/OPV) 2006-03-15 00:00:00 Completed [facility] Pneumococcal 7 Conjugate, PCV7 (Prevnar7) 2006-03-15 00:00:00 Completed [facility] DTaP, Unspecified Formulation 2006-03-15 00:00:00 Completed [facility] IPV 2006-03-15 00:00:00 Completed [facility] DTAP 2006-03-15 00:00:00 Completed [facility] HEPATITIS A 2006-03-15 00:00:00 Completed [facility] MMR 2006-03-15 00:00:00 Completed [facility] Polio (IPV/OPV) 2006-03-15 00:00:00 Completed [facility] Pneumococcal 7 Conjugate, PCV7 (Prevnar7) 2006-03-15 00:00:00 Completed [facility] DTaP, Unspecified Formulation 2006-03-15 00:00:00 Completed [facility] IPV 2006-03-15 00:00:00 Completed [facility] DTAP 2006-03-15 00:00:00 Completed [facility] HEPATITIS A 2006-03-15 00:00:00 Completed [facility] MMR 2006-03-15 00:00:00 Completed [facility] Polio (IPV/OPV) 2006-03-15 00:00:00 Completed [facility] Pneumococcal 7 Conjugate, PCV7 (Prevnar7) 2006-03-15 00:00:00 Completed [facility] DTaP, Unspecified Formulation 2006-03-15 00:00:00 Completed [facility] IPV 2006-03-15 00:00:00 Completed [facility] Hep B, Adol or Pedi Dosage 2004-03-26 00:00:00 Completed [facility] DTaP, Unspecified Formulation 2004-03-26 00:00:00 Completed [facility] HIB 4 Dose Schedule 2004-03-26 00:00:00 Completed [facility] Hep B, Adol or Pedi Dosage 2004-03-26 00:00:00 Completed [facility] DTaP, Unspecified Formulation 2004-03-26 00:00:00 Completed [facility] HIB 4 Dose Schedule 2004-03-26 00:00:00 Completed [facility] Hep B, Adol or Pedi Dosage 2004-03-26 00:00:00 Completed [facility] DTaP, Unspecified Formulation 2004-03-26 00:00:00 Completed [facility] HIB 4 Dose Schedule 2004-03-26 00:00:00 Completed [facility] Hep B, Adol or Pedi Dosage 2004-03-26 00:00:00 Completed [facility] DTaP, Unspecified Formulation 2004-03-26 00:00:00 Completed [facility] HIB 4 Dose Schedule 2004-03-26 00:00:00 Completed [facility] Hep B, Adol or Pedi Dosage 2004-03-26 00:00:00 Completed [facility] DTaP, Unspecified Formulation 2004-03-26 00:00:00 Completed [facility] HIB 4 Dose Schedule 2004-03-26 00:00:00 Completed [facility] Hep B, Adol or Pedi Dosage 2004-03-26 00:00:00 Completed [facility] DTaP, Unspecified Formulation 2004-03-26 00:00:00 Completed [facility] HIB 4 Dose Schedule 2004-03-26 00:00:00 Completed [facility] Hep B, Adol or Pedi Dosage 2004-03-26 00:00:00 Completed [facility] DTaP, Unspecified Formulation 2004-03-26 00:00:00 Completed [facility] HIB 4 Dose Schedule 2004-03-26 00:00:00 Completed [facility] Hep B, Adol or Pedi Dosage 2004-03-26 00:00:00 Completed [facility] HIB 4 Dose Schedule 2004-03-26 00:00:00 Completed [facility] Hep B, Adol or Pedi Dosage 2004-03-26 00:00:00 Completed [facility] HIB 4 Dose Schedule 2004-03-26 00:00:00 Completed [facility] Hep B, Adol or Pedi Dosage 2004-03-26 00:00:00 Completed [facility] HIB 4 Dose Schedule 2004-03-26 00:00:00 Completed [facility] Hep B, Adol or Pedi Dosage 2004-03-26 00:00:00 Completed [facility] HIB 4 Dose Schedule 2004-03-26 00:00:00 Completed [facility] Hep B, Adol or Pedi Dosage 2004-03-26 00:00:00 Completed [facility] HIB 4 Dose Schedule 2004-03-26 00:00:00 Completed [facility] Hep B, Adol or Pedi Dosage 2004-03-26 00:00:00 Completed [facility] HIB 4 Dose Schedule 2004-03-26 00:00:00 Completed [facility] Hep B, Adol or Pedi Dosage 2004-03-26 00:00:00 Completed [facility] HIB 4 Dose Schedule 2004-03-26 00:00:00 Completed [facility] Hep B, Adol or Pedi Dosage 2004-03-26 00:00:00 Completed [facility] HIB 4 Dose Schedule 2004-03-26 00:00:00 Completed [facility] Hep B, Adol or Pedi Dosage 2004-03-26 00:00:00 Completed [facility] HIB 4 Dose Schedule 2004-03-26 00:00:00 Completed [facility] Hep B, Adol or Pedi Dosage 2004-03-26 00:00:00 Completed [facility] HIB 4 Dose Schedule 2004-03-26 00:00:00 Completed [facility] DTAP 2003-06-19 00:00:00 Completed [facility] HIB 4 Dose Schedule 2003-06-19 00:00:00 Completed [facility] Polio (IPV/OPV) 2003-06-19 00:00:00 Completed [facility] Pneumococcal 7 Conjugate, PCV7 (Prevnar7) 2003-06-19 00:00:00 Completed [facility] DTAP 2003-06-19 00:00:00 Completed [facility] HIB 4 Dose Schedule 2003-06-19 00:00:00 Completed [facility] Polio (IPV/OPV) 2003-06-19 00:00:00 Completed [facility] Pneumococcal 7 Conjugate, PCV7 (Prevnar7) 2003-06-19 00:00:00 Completed [facility] DTAP 2003-06-19 00:00:00 Completed [facility] HIB 4 Dose Schedule 2003-06-19 00:00:00 Completed [facility] Polio (IPV/OPV) 2003-06-19 00:00:00 Completed [facility] Pneumococcal 7 Conjugate, PCV7 (Prevnar7) 2003-06-19 00:00:00 Completed [facility] DTAP 2003-06-19 00:00:00 Completed [facility] HIB 4 Dose Schedule 2003-06-19 00:00:00 Completed [facility] Polio (IPV/OPV) 2003-06-19 00:00:00 Completed [facility] Pneumococcal 7 Conjugate, PCV7 (Prevnar7) 2003-06-19 00:00:00 Completed [facility] DTAP 2003-06-19 00:00:00 Completed [facility] HIB 4 Dose Schedule 2003-06-19 00:00:00 Completed [facility] Polio (IPV/OPV) 2003-06-19 00:00:00 Completed [facility] Pneumococcal 7 Conjugate, PCV7 (Prevnar7) 2003-06-19 00:00:00 Completed [facility] DTAP 2003-06-19 00:00:00 Completed [facility] HIB 4 Dose Schedule 2003-06-19 00:00:00 Completed [facility] Polio (IPV/OPV) 2003-06-19 00:00:00 Completed [facility] Pneumococcal 7 Conjugate, PCV7 (Prevnar7) 2003-06-19 00:00:00 Completed [facility] DTAP 2003-06-19 00:00:00 Completed [facility] HIB 4 Dose Schedule 2003-06-19 00:00:00 Completed [facility] Polio (IPV/OPV) 2003-06-19 00:00:00 Completed [facility] Pneumococcal 7 Conjugate, PCV7 (Prevnar7) 2003-06-19 00:00:00 Completed [facility] DTAP 2003-06-19 00:00:00 Completed [facility] HIB 4 Dose Schedule 2003-06-19 00:00:00 Completed [facility] Polio (IPV/OPV) 2003-06-19 00:00:00 Completed [facility] Pneumococcal 7 Conjugate, PCV7 (Prevnar7) 2003-06-19 00:00:00 Completed [facility] DTAP 2003-06-19 00:00:00 Completed [facility] HIB 4 Dose Schedule 2003-06-19 00:00:00 Completed [facility] Polio (IPV/OPV) 2003-06-19 00:00:00 Completed [facility] Pneumococcal 7 Conjugate, PCV7 (Prevnar7) 2003-06-19 00:00:00 Completed [facility] DTAP 2003-06-19 00:00:00 Completed [facility] HIB 4 Dose Schedule 2003-06-19 00:00:00 Completed [facility] Polio (IPV/OPV) 2003-06-19 00:00:00 Completed [facility] Pneumococcal 7 Conjugate, PCV7 (Prevnar7) 2003-06-19 00:00:00 Completed [facility] DTAP 2003-06-19 00:00:00 Completed [facility] HIB 4 Dose Schedule 2003-06-19 00:00:00 Completed [facility] Polio (IPV/OPV) 2003-06-19 00:00:00 Completed [facility] Pneumococcal 7 Conjugate, PCV7 (Prevnar7) 2003-06-19 00:00:00 Completed [facility] DTaP, Unspecified Formulation 2003-06-19 00:00:00 Completed [facility] IPV 2003-06-19 00:00:00 Completed [facility] DTAP 2003-06-19 00:00:00 Completed [facility] HIB 4 Dose Schedule 2003-06-19 00:00:00 Completed [facility] Polio (IPV/OPV) 2003-06-19 00:00:00 Completed [facility] Pneumococcal 7 Conjugate, PCV7 (Prevnar7) 2003-06-19 00:00:00 Completed [facility] DTaP, Unspecified Formulation 2003-06-19 00:00:00 Completed [facility] IPV 2003-06-19 00:00:00 Completed [facility] DTAP 2003-06-19 00:00:00 Completed [facility] HIB 4 Dose Schedule 2003-06-19 00:00:00 Completed [facility] Polio (IPV/OPV) 2003-06-19 00:00:00 Completed [facility] Pneumococcal 7 Conjugate, PCV7 (Prevnar7) 2003-06-19 00:00:00 Completed [facility] DTaP, Unspecified Formulation 2003-06-19 00:00:00 Completed [facility] IPV 2003-06-19 00:00:00 [facility] [facility] DTAP 2003-06-19 00:00:00 Completed [facility] HIB 4 Dose Schedule 2003-06-19 00:00:00 Completed [facility] Polio (IPV/OPV) 2003-06-19 00:00:00 Completed [facility] Pneumococcal 7 Conjugate, PCV7 (Prevnar7) 2003-06-19 00:00:00 Completed [facility] DTaP, Unspecified Formulation 2003-06-19 00:00:00 Completed [facility] IPV 2003-06-19 00:00:00 Completed [facility] DTAP 2003-06-19 00:00:00 Completed [facility] HIB 4 Dose Schedule 2003-06-19 00:00:00 Completed [facility] Polio (IPV/OPV) 2003-06-19 00:00:00 Completed [facility] Pneumococcal 7 Conjugate, PCV7 (Prevnar7) 2003-06-19 00:00:00 Completed [facility] DTaP, Unspecified Formulation 2003-06-19 00:00:00 Completed [facility] IPV 2003-06-19 00:00:00 Completed [facility] DTAP 2003-06-19 00:00:00 Completed [facility] HIB 4 Dose Schedule 2003-06-19 00:00:00 Completed [facility] Polio (IPV/OPV) 2003-06-19 00:00:00 Completed [facility] Pneumococcal 7 Conjugate, PCV7 (Prevnar7) 2003-06-19 00:00:00 Completed [facility] DTaP, Unspecified Formulation 2003-06-19 00:00:00 Completed [facility] IPV 2003-06-19 00:00:00 Completed [facility] DTAP 2003-06-19 00:00:00 Completed [facility] HIB 4 Dose Schedule 2003-06-19 00:00:00 Completed [facility] Polio (IPV/OPV) 2003-06-19 00:00:00 Completed [facility] Pneumococcal 7 Conjugate, PCV7 (Prevnar7) 2003-06-19 00:00:00 Completed [facility] DTaP, Unspecified Formulation 2003-06-19 00:00:00 Completed [facility] IPV 2003-06-19 00:00:00 Completed [facility] DTAP 2003-02-27 00:00:00 Completed [facility] HIB 4 Dose Schedule 2003-02-27 00:00:00 Completed [facility] MMR 2003-02-27 00:00:00 Completed [facility] Polio (IPV/OPV) 2003-02-27 00:00:00 Completed [facility] Varicella (varivax)(chicken pox) 2003-02-27 00:00:00 Completed [facility] DTAP 2003-02-27 00:00:00 Completed [facility] HIB 4 Dose Schedule 2003-02-27 00:00:00 Completed [facility] MMR 2003-02-27 00:00:00 Completed [facility] Polio (IPV/OPV) 2003-02-27 00:00:00 Completed [facility] Varicella (varivax)(chicken pox) 2003-02-27 00:00:00 Completed [facility] DTAP 2003-02-27 00:00:00 Completed [facility] HIB 4 Dose Schedule 2003-02-27 00:00:00 Completed [facility] MMR 2003-02-27 00:00:00 Completed [facility] Polio (IPV/OPV) 2003-02-27 00:00:00 Completed [facility] Varicella (varivax)(chicken pox) 2003-02-27 00:00:00 Completed [facility] DTAP 2003-02-27 00:00:00 Completed [facility] HIB 4 Dose Schedule 2003-02-27 00:00:00 Completed [facility] MMR 2003-02-27 00:00:00 Completed [facility] Polio (IPV/OPV) 2003-02-27 00:00:00 Completed [facility] Varicella (varivax)(chicken pox) 2003-02-27 00:00:00 Completed [facility] DTAP 2003-02-27 00:00:00 Completed [facility] HIB 4 Dose Schedule 2003-02-27 00:00:00 Completed [facility] MMR 2003-02-27 00:00:00 Completed [facility] Polio (IPV/OPV) 2003-02-27 00:00:00 Completed [facility] Varicella (varivax)(chicken pox) 2003-02-27 00:00:00 Completed [facility] DTAP 2003-02-27 00:00:00 Completed [facility] HIB 4 Dose Schedule 2003-02-27 00:00:00 Completed [facility] MMR 2003-02-27 00:00:00 Completed [facility] Polio (IPV/OPV) 2003-02-27 00:00:00 Completed [facility] Varicella (varivax)(chicken pox) 2003-02-27 00:00:00 Completed [facility] DTAP 2003-02-27 00:00:00 Completed [facility] HIB 4 Dose Schedule 2003-02-27 00:00:00 Completed [facility] MMR 2003-02-27 00:00:00 Completed [facility] Polio (IPV/OPV) 2003-02-27 00:00:00 Completed [facility] Varicella (varivax)(chicken pox) 2003-02-27 00:00:00 Completed [facility] DTAP 2003-02-27 00:00:00 Completed [facility] HIB 4 Dose Schedule 2003-02-27 00:00:00 Completed [facility] MMR 2003-02-27 00:00:00 Completed [facility] Polio (IPV/OPV) 2003-02-27 00:00:00 Completed [facility] Varicella (varivax)(chicken pox) 2003-02-27 00:00:00 Completed [facility] DTAP 2003-02-27 00:00:00 Completed [facility] HIB 4 Dose Schedule 2003-02-27 00:00:00 Completed [facility] MMR 2003-02-27 00:00:00 Completed [facility] Polio (IPV/OPV) 2003-02-27 00:00:00 Completed [facility] Varicella (varivax)(chicken pox) 2003-02-27 00:00:00 Completed [facility] DTAP 2003-02-27 00:00:00 Completed [facility] HIB 4 Dose Schedule 2003-02-27 00:00:00 Completed [facility] MMR 2003-02-27 00:00:00 Completed [facility] Polio (IPV/OPV) 2003-02-27 00:00:00 Completed [facility] Varicella (varivax)(chicken pox) 2003-02-27 00:00:00 Completed [facility] DTAP 2003-02-27 00:00:00 Completed [facility] HIB 4 Dose Schedule 2003-02-27 00:00:00 Completed [facility] MMR 2003-02-27 00:00:00 Completed [facility] Polio (IPV/OPV) 2003-02-27 00:00:00 Completed [facility] Varicella (varivax)(chicken pox) 2003-02-27 00:00:00 Completed [facility] DTaP, Unspecified Formulation 2003-02-27 00:00:00 Completed [facility] IPV 2003-02-27 00:00:00 Completed [facility] DTAP 2003-02-27 00:00:00 Completed [facility] HIB 4 Dose Schedule 2003-02-27 00:00:00 Completed [facility] MMR 2003-02-27 00:00:00 Completed [facility] Polio (IPV/OPV) 2003-02-27 00:00:00 Completed [facility] Varicella (varivax)(chicken pox) 2003-02-27 00:00:00 Completed [facility] DTaP, Unspecified Formulation 2003-02-27 00:00:00 Completed [facility] IPV 2003-02-27 00:00:00 Completed [facility] DTAP 2003-02-27 00:00:00 Completed [facility] HIB 4 Dose Schedule 2003-02-27 00:00:00 Completed [facility] MMR 2003-02-27 00:00:00 Completed [facility] Polio (IPV/OPV) 2003-02-27 00:00:00 Completed [facility] Varicella (varivax)(chicken pox) 2003-02-27 00:00:00 Completed [facility] DTaP, Unspecified Formulation 2003-02-27 00:00:00 Completed [facility] IPV 2003-02-27 00:00:00 Completed [facility] DTAP 2003-02-27 00:00:00 Completed [facility] HIB 4 Dose Schedule 2003-02-27 00:00:00 Completed [facility] MMR 2003-02-27 00:00:00 Completed [facility] Polio (IPV/OPV) 2003-02-27 00:00:00 Completed [facility] Varicella (varivax)(chicken pox) 2003-02-27 00:00:00 Completed [facility] DTaP, Unspecified Formulation 2003-02-27 00:00:00 Completed [facility] IPV 2003-02-27 00:00:00 Completed [facility] DTAP 2003-02-27 00:00:00 Completed [facility] HIB 4 Dose Schedule 2003-02-27 00:00:00 Completed [facility] MMR 2003-02-27 00:00:00 Completed [facility] Polio (IPV/OPV) 2003-02-27 00:00:00 Completed [facility] Varicella (varivax)(chicken pox) 2003-02-27 00:00:00 Completed [facility] DTaP, Unspecified Formulation 2003-02-27 00:00:00 Completed [facility] IPV 2003-02-27 00:00:00 Completed [facility] DTAP 2003-02-27 00:00:00 Completed [facility] HIB 4 Dose Schedule 2003-02-27 00:00:00 Completed [facility] MMR 2003-02-27 00:00:00 Completed [facility] Polio (IPV/OPV) 2003-02-27 00:00:00 Completed [facility] Varicella (varivax)(chicken pox) 2003-02-27 00:00:00 Completed [facility] DTaP, Unspecified Formulation 2003-02-27 00:00:00 Completed [facility] IPV 2003-02-27 00:00:00 Completed [facility] DTAP 2003-02-27 00:00:00 Completed [facility] HIB 4 Dose Schedule 2003-02-27 00:00:00 Completed [facility] MMR 2003-02-27 00:00:00 Completed [facility] Polio (IPV/OPV) 2003-02-27 00:00:00 Completed [facility] Varicella (varivax)(chicken pox) 2003-02-27 00:00:00 Completed [facility] DTaP, Unspecified Formulation 2003-02-27 00:00:00 Completed [facility] IPV 2003-02-27 00:00:00 Completed [facility] DTAP 2002-03-28 00:00:00 Completed [facility] HIB 4 Dose Schedule 2002-03-28 00:00:00 Completed [facility] Hep B, Adol or Pedi Dosage 2002-03-28 00:00:00 Completed [facility] Polio (IPV/OPV) 2002-03-28 00:00:00 Completed [facility] DTAP 2002-03-28 00:00:00 Completed [facility] HIB 4 Dose Schedule 2002-03-28 00:00:00 Completed [facility] Hep B, Adol or Pedi Dosage 2002-03-28 00:00:00 Completed [facility] Polio (IPV/OPV) 2002-03-28 00:00:00 Completed [facility] DTAP 2002-03-28 00:00:00 Completed [facility] HIB 4 Dose Schedule 2002-03-28 00:00:00 Completed [facility] Hep B, Adol or Pedi Dosage 2002-03-28 00:00:00 Completed [facility] Polio (IPV/OPV) 2002-03-28 00:00:00 Completed [facility] DTAP 2002-03-28 00:00:00 Completed [facility] HIB 4 Dose Schedule 2002-03-28 00:00:00 Completed [facility] Hep B, Adol or Pedi Dosage 2002-03-28 00:00:00 Completed [facility] Polio (IPV/OPV) 2002-03-28 00:00:00 Completed [facility] DTAP 2002-03-28 00:00:00 Completed [facility] HIB 4 Dose Schedule 2002-03-28 00:00:00 Completed [facility] Hep B, Adol or Pedi Dosage 2002-03-28 00:00:00 Completed [facility] Polio (IPV/OPV) 2002-03-28 00:00:00 Completed [facility] DTAP 2002-03-28 00:00:00 Completed [facility] HIB 4 Dose Schedule 2002-03-28 00:00:00 Completed [facility] Hep B, Adol or Pedi Dosage 2002-03-28 00:00:00 Completed [facility] Polio (IPV/OPV) 2002-03-28 00:00:00 Completed [facility] DTAP 2002-03-28 00:00:00 Completed [facility] HIB 4 Dose Schedule 2002-03-28 00:00:00 Completed [facility] Hep B, Adol or Pedi Dosage 2002-03-28 00:00:00 Completed [facility] Polio (IPV/OPV) 2002-03-28 00:00:00 Completed [facility] DTAP 2002-03-28 00:00:00 Completed [facility] HIB 4 Dose Schedule 2002-03-28 00:00:00 Completed [facility] Hep B, Adol or Pedi Dosage 2002-03-28 00:00:00 Completed [facility] Polio (IPV/OPV) 2002-03-28 00:00:00 Completed [facility] DTAP 2002-03-28 00:00:00 Completed [facility] HIB 4 Dose Schedule 2002-03-28 00:00:00 Completed [facility] Hep B, Adol or Pedi Dosage 2002-03-28 00:00:00 Completed [facility] Polio (IPV/OPV) 2002-03-28 00:00:00 Completed [facility] DTAP 2002-03-28 00:00:00 Completed [facility] HIB 4 Dose Schedule 2002-03-28 00:00:00 Completed [facility] Hep B, Adol or Pedi Dosage 2002-03-28 00:00:00 Completed [facility] Polio (IPV/OPV) 2002-03-28 00:00:00 Completed [facility] DTAP 2002-03-28 00:00:00 Completed [facility] HIB 4 Dose Schedule 2002-03-28 00:00:00 Completed [facility] Hep B, Adol or Pedi Dosage 2002-03-28 00:00:00 Completed [facility] Polio (IPV/OPV) 2002-03-28 00:00:00 Completed [facility] DTaP, Unspecified Formulation 2002-03-28 00:00:00 Completed [facility] IPV 2002-03-28 00:00:00 Completed [facility] DTAP 2002-03-28 00:00:00 Completed [facility] HIB 4 Dose Schedule 2002-03-28 00:00:00 Completed [facility] Hep B, Adol or Pedi Dosage 2002-03-28 00:00:00 Completed [facility] Polio (IPV/OPV) 2002-03-28 00:00:00 Completed [facility] DTaP, Unspecified Formulation 2002-03-28 00:00:00 Completed [facility] IPV 2002-03-28 00:00:00 Completed [facility] DTAP 2002-03-28 00:00:00 Completed [facility] HIB 4 Dose Schedule 2002-03-28 00:00:00 Completed [facility] Hep B, Adol or Pedi Dosage 2002-03-28 00:00:00 Completed [facility] Polio (IPV/OPV) 2002-03-28 00:00:00 Completed [facility] DTaP, Unspecified Formulation 2002-03-28 00:00:00 Completed [facility] IPV 2002-03-28 00:00:00 Completed [facility] DTAP 2002-03-28 00:00:00 Completed [facility] HIB 4 Dose Schedule 2002-03-28 00:00:00 Completed [facility] Hep B, Adol or Pedi Dosage 2002-03-28 00:00:00 Completed [facility] Polio (IPV/OPV) 2002-03-28 00:00:00 Completed [facility] DTaP, Unspecified Formulation 2002-03-28 00:00:00 Completed [facility] IPV 2002-03-28 00:00:00 Completed [facility] DTAP 2002-03-28 00:00:00 Completed [facility] HIB 4 Dose Schedule 2002-03-28 00:00:00 Completed [facility] Hep B, Adol or Pedi Dosage 2002-03-28 00:00:00 Completed [facility] Polio (IPV/OPV) 2002-03-28 00:00:00 Completed [facility] DTaP, Unspecified Formulation 2002-03-28 00:00:00 Completed [facility] IPV 2002-03-28 00:00:00 Completed [facility] DTAP 2002-03-28 00:00:00 Completed [facility] HIB 4 Dose Schedule 2002-03-28 00:00:00 Completed [facility] Hep B, Adol or Pedi Dosage 2002-03-28 00:00:00 Completed [facility] Polio (IPV/OPV) 2002-03-28 00:00:00 Completed [facility] DTaP, Unspecified Formulation 2002-03-28 00:00:00 Completed [facility] IPV 2002-03-28 00:00:00 Completed [facility] DTAP 2002-03-28 00:00:00 Completed [facility] HIB 4 Dose Schedule 2002-03-28 00:00:00 Completed [facility] Hep B, Adol or Pedi Dosage 2002-03-28 00:00:00 Completed [facility] Polio (IPV/OPV) 2002-03-28 00:00:00 Completed [facility] DTaP, Unspecified Formulation 2002-03-28 00:00:00 Completed [facility] IPV 2002-03-28 00:00:00 Completed [facility] Hep B, Adol or Pedi Dosage 2001 00:00:00 Completed [facility] Hep B, Adol or Pedi Dosage 2001 00:00:00 Completed [facility] Hep B, Adol or Pedi Dosage 2001 00:00:00 Completed [facility] Hep B, Adol or Pedi Dosage 2001 00:00:00 Completed [facility] Hep B, Adol or Pedi Dosage 2001 00:00:00 Completed [facility] Hep B, Adol or Pedi Dosage 2001 00:00:00 Completed [facility] Hep B, Adol or Pedi Dosage 2001 00:00:00 Completed [facility] Hep B, Adol or Pedi Dosage 2001 00:00:00 Completed [facility] Hep B, Adol or Pedi Dosage 2001 00:00:00 Completed [facility] Hep B, Adol or Pedi Dosage 2001 00:00:00 Completed [facility] Hep B, Adol or Pedi Dosage 2001 00:00:00 Completed [facility] Hep B, Adol or Pedi Dosage 2001 00:00:00 Completed [facility] Hep B, Adol or Pedi Dosage 2001 00:00:00 Completed [facility] Hep B, Adol or Pedi Dosage 2001 00:00:00 Completed [facility] Hep B, Adol or Pedi Dosage 2001 00:00:00 Completed [facility] Hep B, Adol or Pedi Dosage 2001 00:00:00 Completed [facility] Hep B, Adol or Pedi Dosage 2001 00:00:00 Completed [facility] Hep B, Adol or Pedi Dosage 2001 00:00:00 Completed [facility] Hep B, Adol or Pedi Dosage 2001 00:00:00 Completed [facility] Hep B, Adol or Pedi Dosage 2001 00:00:00 Completed [facility] Hep B, Adol or Pedi Dosage 2001 00:00:00 Completed [facility] Hep B, Adol or Pedi Dosage 2001 00:00:00 Completed [facility] Hep B, Adol or Pedi Dosage 2001 00:00:00 Completed [facility] Hep B, Adol or Pedi Dosage 2001 00:00:00 Completed [facility] Hep B, Adol or Pedi Dosage 2001 00:00:00 Completed [facility] Hep B, Adol or Pedi Dosage 2001 00:00:00 Completed [facility] Hep B, Adol or Pedi Dosage 2001 00:00:00 Completed [facility] Hep B, Adol or Pedi Dosage 2001 00:00:00 Completed [facility] Hep B, Adol or Pedi Dosage 2001 00:00:00 Completed [facility] Hep B, Adol or Pedi Dosage 2001 00:00:00 Completed [facility] Hep B, Adol or Pedi Dosage 2001 00:00:00 Completed [facility] Hep B, Adol or Pedi Dosage 2001 00:00:00 Completed [facility] Hep B, Adol or Pedi Dosage 2001 00:00:00 Completed [facility] Hep B, Adol or Pedi Dosage 2001 00:00:00 Completed [facility] DTAP Unknown Completed [facility] DTAP Unknown Completed [facility] DTAP Unknown Completed [facility] DTAP Unknown Completed [facility] HIB 4 Dose Schedule Unknown Completed [facility] HIB 4 Dose Schedule Unknown Completed [facility] HIB 4 Dose Schedule Unknown Completed [facility] HIB 4 Dose Schedule Unknown Completed [facility] HEPATITIS A Unknown Completed [facility] Hep B, Adol or Pedi Dosage Unknown Completed [facility] Hep B, Adol or Pedi Dosage Unknown Completed [facility] Hep B, Adol or Pedi Dosage Unknown Completed [facility] Hep B, Adol or Pedi Dosage Unknown Completed [facility] HPV Unknown Completed [facility] Meningococcal Vaccine Unknown Completed [facility] MMR Unknown Completed [facility] MMR Unknown Completed [facility] Polio (IPV/OPV) Unknown Completed [facility] Polio (IPV/OPV) Unknown Completed [facility] Polio (IPV/OPV) Unknown Completed [facility] Polio (IPV/OPV) Unknown Completed [facility] TDAP Unknown Completed [facility] Varicella (varivax)(chicken pox) Unknown Completed [facility] Varicella (varivax)(chicken pox) Unknown Completed [facility] Pneumococcal 7 Conjugate, PCV7 (Prevnar7) Unknown Completed [facility] Pneumococcal 7 Conjugate, PCV7 (Prevnar7) Unknown Completed [facility] Meningococcal Polysaccharide (groups A, C, Y and W-135) conjugate vaccine (MCV4P) Unknown Completed [facility] Meningococcal B, OMV Unknown Completed [facility] HPV9 Unknown Completed [facility] HEPATITIS A Unknown Completed [facility] Meningococcal B, OMV Unknown Completed [facility] HPV9 Unknown Completed [facility] DTaP, Unspecified Formulation Unknown Completed [facility] DTaP, Unspecified Formulation Unknown Completed [facility] DTaP, Unspecified Formulation Unknown Completed [facility] DTaP, Unspecified Formulation Unknown Completed [facility] DTaP, Unspecified Formulation Unknown Completed [facility] Meningococcal Polysaccharide (groups A, C, Y and W-135) conjugate vaccine (MCV4P) Unknown Completed [facility] IPV Unknown Completed [facility] IPV Unknown Completed [facility] IPV Unknown Completed [facility] IPV Unknown Completed [facility] DTAP Unknown Completed [facility] DTAP Unknown Completed [facility] DTAP Unknown Completed [facility] DTAP Unknown Completed [facility] HIB 4 Dose Schedule Unknown Completed [facility] HIB 4 Dose Schedule Unknown Completed [facility] HIB 4 Dose Schedule Unknown Completed [facility] HIB 4 Dose Schedule Unknown Completed [facility] HEPATITIS A Unknown Completed [facility] Hep B, Adol or Pedi Dosage Unknown Completed [facility] Hep B, Adol or Pedi Dosage Unknown Completed [facility] Hep B, Adol or Pedi Dosage Unknown Completed [facility] Hep B, Adol or Pedi Dosage Unknown Completed [facility] HPV Unknown Completed [facility] Meningococcal Vaccine Unknown Completed [facility] MMR Unknown Completed [facility] MMR Unknown Completed [facility] Polio (IPV/OPV) Unknown Completed [facility] Polio (IPV/OPV) Unknown Completed [facility] Polio (IPV/OPV) Unknown Completed [facility] Polio (IPV/OPV) Unknown Completed [facility] TDAP Unknown Completed [facility] Varicella (varivax)(chicken pox) Unknown Completed [facility] Varicella (varivax)(chicken pox) Unknown Completed [facility] Pneumococcal 7 Conjugate, PCV7 (Prevnar7) Unknown Completed [facility] Pneumococcal 7 Conjugate, PCV7 (Prevnar7) Unknown Completed [facility] Meningococcal Polysaccharide (groups A, C, Y and W-135) conjugate vaccine (MCV4P) Unknown Completed [facility] Meningococcal B, OMV Unknown Completed [facility] HPV9 Unknown Completed [facility] HEPATITIS A Unknown Completed [facility] Meningococcal B, OMV Unknown Completed [facility] HPV9 Unknown Completed [facility] DTaP, Unspecified Formulation Unknown Completed [facility] DTaP, Unspecified Formulation Unknown Completed [facility] DTaP, Unspecified Formulation Unknown Completed [facility] DTaP, Unspecified Formulation Unknown Completed [facility] DTaP, Unspecified Formulation Unknown Completed [facility] Meningococcal Polysaccharide (groups A, C, Y and W-135) conjugate vaccine (MCV4P) Unknown Completed [facility] IPV Unknown Completed [facility] IPV Unknown Completed [facility] IPV Unknown Completed [facility] IPV Unknown Completed [facility] DTAP Unknown Completed [facility] DTAP Unknown Completed [facility] DTAP Unknown Completed [facility] DTAP Unknown Completed [facility] HIB 4 Dose Schedule Unknown Completed [facility] HIB 4 Dose Schedule Unknown Completed [facility] HIB 4 Dose Schedule Unknown Completed [facility] HIB 4 Dose Schedule Unknown Completed [facility] HEPATITIS A Unknown Completed [facility] Hep B, Adol or Pedi Dosage Unknown Completed [facility] Hep B, Adol or Pedi Dosage Unknown Completed [facility] Hep B, Adol or Pedi Dosage Unknown Completed [facility] Hep B, Adol or Pedi Dosage Unknown Completed [facility] HPV Unknown Completed [facility] Meningococcal Vaccine Unknown Completed [facility] MMR Unknown Completed [facility] MMR Unknown Completed [facility] Polio (IPV/OPV) Unknown Completed [facility] Polio (IPV/OPV) Unknown Completed [facility] Polio (IPV/OPV) Unknown Completed [facility] Polio (IPV/OPV) Unknown Completed [facility] TDAP Unknown Completed [facility] Varicella (varivax)(chicken pox) Unknown Completed [facility] Varicella (varivax)(chicken pox) Unknown Completed [facility] Pneumococcal 7 Conjugate, PCV7 (Prevnar7) Unknown Completed [facility] Pneumococcal 7 Conjugate, PCV7 (Prevnar7) Unknown Completed [facility] Meningococcal Polysaccharide (groups A, C, Y and W-135) conjugate vaccine (MCV4P) Unknown Completed [facility] Meningococcal B, OMV Unknown Completed [facility] HPV9 Unknown Completed [facility] HEPATITIS A Unknown Completed [facility] Meningococcal B, OMV Unknown Completed [facility] HPV9 Unknown Completed [facility] DTaP, Unspecified Formulation Unknown Completed [facility] DTaP, Unspecified Formulation Unknown Completed [facility] DTaP, Unspecified Formulation Unknown Completed [facility] DTaP, Unspecified Formulation Unknown Completed [facility] DTaP, Unspecified Formulation Unknown Completed [facility] Meningococcal Polysaccharide (groups A, C, Y and W-135) conjugate vaccine (MCV4P) Unknown Completed [facility] IPV Unknown Completed [facility] IPV Unknown Completed [facility] IPV Unknown Completed [facility] IPV Unknown Completed [facility] DTAP Unknown Completed [facility] DTAP Unknown Completed [facility] DTAP Unknown Completed [facility] DTAP Unknown Completed [facility] HIB 4 Dose Schedule Unknown Completed [facility] HIB 4 Dose Schedule Unknown Completed [facility] HIB 4 Dose Schedule Unknown Completed [facility] HIB 4 Dose Schedule Unknown Completed [facility] HEPATITIS A Unknown Completed [facility] Hep B, Adol or Pedi Dosage Unknown Completed [facility] Hep B, Adol or Pedi Dosage Unknown Completed [facility] Hep B, Adol or Pedi Dosage Unknown Completed [facility] Hep B, Adol or Pedi Dosage Unknown Completed [facility] HPV Unknown Completed [facility] Meningococcal Vaccine Unknown Completed [facility] MMR Unknown Completed [facility] MMR Unknown Completed [facility] Polio (IPV/OPV) Unknown [facility] Polio (IPV/OPV) Unknown [facility] Polio (IPV/OPV[facility] Unknown Completed [facility] Polio (IPV/OPV) Unknown Completed [facility] TDAP Unknown Completed [facility] Varicella (varivax)(chicken pox) Unknown Completed [facility] Varicella (varivax)(chicken pox) Unknown Completed [facility] Pneumococcal 7 Conjugate, PCV7 (Prevnar7) Unknown Completed [facility] Pneumococcal 7 Conjugate, PCV7 (Prevnar7) Unknown Completed [facility] Meningococcal Polysaccharide (groups A, C, Y and W-135) conjugate vaccine (MCV4P) Unknown Completed [facility] Meningococcal B, OMV Unknown Completed [facility] HPV9 Unknown Completed [facility] HEPATITIS A Unknown Completed [facility] Meningococcal B, OMV Unknown Completed [facility] HPV9 Unknown Completed [facility] DTaP, Unspecified Formulation Unknown Completed [facility] DTaP, Unspecified Formulation Unknown Completed [facility] DTaP, Unspecified Formulation Unknown Completed [facility] DTaP, Unspecified Formulation Unknown Completed [facility] DTaP, Unspecified Formulation Unknown Completed [facility] Meningococcal Polysaccharide (groups A, C, Y and W-135) conjugate vaccine (MCV4P) Unknown Completed [facility] IPV Unknown Completed [facility] IPV Unknown Completed [facility] IPV Unknown Completed [facility] IPV Unknown Completed [facility] DTAP Unknown Completed [facility] DTAP Unknown Completed [facility] DTAP Unknown Completed [facility] DTAP Unknown Completed [facility] HIB 4 Dose Schedule Unknown Completed [facility] HIB 4 Dose Schedule Unknown Completed [facility] HIB 4 Dose Schedule Unknown Completed [facility] HIB 4 Dose Schedule Unknown Completed [facility] HEPATITIS A Unknown Completed [facility] Hep B, Adol or Pedi Dosage Unknown Completed [facility] Hep B, Adol or Pedi Dosage Unknown Completed [facility] Hep B, Adol or Pedi Dosage Unknown Completed [facility] Hep B, Adol or Pedi Dosage Unknown Completed [facility] HPV Unknown Completed [facility] Meningococcal Vaccine Unknown Completed [facility] MMR Unknown Completed [facility] MMR Unknown Completed [facility] Polio (IPV/OPV) Unknown Completed [facility] Polio (IPV/OPV) Unknown Completed [facility] Polio (IPV/OPV) Unknown Completed [facility] Polio (IPV/OPV) Unknown Completed [facility] TDAP Unknown Completed [facility] Varicella (varivax)(chicken pox) Unknown Completed [facility] Varicella (varivax)(chicken pox) Unknown Completed [facility] Pneumococcal 7 Conjugate, PCV7 (Prevnar7) Unknown Completed [facility] Pneumococcal 7 Conjugate, PCV7 (Prevnar7) Unknown Completed [facility] Meningococcal Polysaccharide (groups A, C, Y and W-135) conjugate vaccine (MCV4P) Unknown Completed [facility] Meningococcal B, OMV Unknown Completed [facility] HPV9 Unknown Completed [facility] HEPATITIS A Unknown Completed [facility] Meningococcal B, OMV Unknown Completed [facility] HPV9 Unknown Completed [facility] DTaP, Unspecified Formulation Unknown Completed [facility] DTaP, Unspecified Formulation Unknown Completed [facility] DTaP, Unspecified Formulation Unknown Completed [facility] DTaP, Unspecified Formulation Unknown Completed [facility] DTaP, Unspecified Formulation Unknown Completed [facility] Meningococcal Polysaccharide (groups A, C, Y and W-135) conjugate vaccine (MCV4P) Unknown Completed [facility] IPV Unknown Completed [facility] IPV Unknown Completed [facility] IPV Unknown Completed [facility] IPV Unknown Completed [facility] DTAP Unknown Completed [facility] DTAP Unknown Completed [facility] DTAP Unknown Completed [facility] DTAP Unknown Completed [facility] HIB 4 Dose Schedule Unknown Completed [facility] HIB 4 Dose Schedule Unknown Completed [facility] HIB 4 Dose Schedule Unknown Completed [facility] HIB 4 Dose Schedule Unknown Completed [facility] HEPATITIS A Unknown Completed [facility] Hep B, Adol or Pedi Dosage Unknown Completed [facility] Hep B, Adol or Pedi Dosage Unknown Completed [facility] Hep B, Adol or Pedi Dosage Unknown Completed [facility] Hep B, Adol or Pedi Dosage Unknown Completed [facility] HPV Unknown Completed [facility] Meningococcal Vaccine Unknown Completed [facility] MMR Unknown Completed [facility] MMR Unknown Completed [facility] Polio (IPV/OPV) Unknown Completed [facility] Polio (IPV/OPV) Unknown Completed [facility] Polio (IPV/OPV) Unknown Completed [facility] Polio (IPV/OPV) Unknown Completed [facility] TDAP Unknown Completed [facility] Varicella (varivax)(chicken pox) Unknown Completed [facility] Varicella (varivax)(chicken pox) Unknown Completed [facility] Pneumococcal 7 Conjugate, PCV7 (Prevnar7) Unknown Completed [facility] Pneumococcal 7 Conjugate, PCV7 (Prevnar7) Unknown Completed [facility] Meningococcal Polysaccharide (groups A, C, Y and W-135) conjugate vaccine (MCV4P) Unknown Completed [facility] Meningococcal B, OMV Unknown Completed [facility] HPV9 Unknown Completed [facility] HEPATITIS A Unknown Completed [facility] Meningococcal B, OMV Unknown Completed [facility] HPV9 Unknown Completed [facility] DTaP, Unspecified Formulation Unknown Completed [facility] DTaP, Unspecified Formulation Unknown Completed [facility] DTaP, Unspecified Formulation Unknown Completed [facility] DTaP, Unspecified Formulation Unknown Completed [facility] DTaP, Unspecified Formulation Unknown Completed [facility] Meningococcal Polysaccharide (groups A, C, Y and W-135) conjugate vaccine (MCV4P) Unknown Completed [facility] IPV Unknown Completed [facility] IPV Unknown Completed [facility] IPV Unknown Completed [facility] IPV Unknown Completed [facility] DTAP Unknown Completed [facility] DTAP Unknown Completed [facility] DTAP Unknown Completed [facility] DTAP Unknown Completed [facility] HIB 4 Dose Schedule Unknown Completed [facility] HIB 4 Dose Schedule Unknown Completed [facility] HIB 4 Dose Schedule Unknown Completed [facility] HIB 4 Dose Schedule Unknown Completed [facility] HEPATITIS A Unknown Completed [facility] Hep B, Adol or Pedi Dosage Unknown Completed [facility] Hep B, Adol or Pedi Dosage Unknown Completed [facility] Hep B, Adol or Pedi Dosage Unknown Completed [facility] Hep B, Adol or Pedi Dosage Unknown Completed [facility] HPV Unknown Completed [facility] Meningococcal Vaccine Unknown Completed [facility] MMR Unknown Completed [facility] MMR Unknown Completed [facility] Polio (IPV/OPV) Unknown Completed [facility] Polio (IPV/OPV) Unknown Completed [facility] Polio (IPV/OPV) Unknown Completed [facility] Polio (IPV/OPV) Unknown Completed [facility] TDAP Unknown Completed [facility] Varicella (varivax)(chicken pox) Unknown Completed [facility] Varicella (varivax)(chicken pox) Unknown Completed [facility] Pneumococcal 7 Conjugate, PCV7 (Prevnar7) Unknown Completed [facility] Pneumococcal 7 Conjugate, PCV7 (Prevnar7) Unknown Completed [facility] Meningococcal Polysaccharide (groups A, C, Y and W-135) conjugate vaccine (MCV4P) Unknown Completed [facility] Meningococcal B, OMV Unknown Completed [facility] HPV9 Unknown Completed [facility] HEPATITIS A Unknown Completed [facility] Meningococcal B, OMV Unknown Completed [facility] HPV9 Unknown Completed [facility] DTaP, Unspecified Formulation Unknown Completed [facility] DTaP, Unspecified Formulation Unknown Completed [facility] DTaP, Unspecified Formulation Unknown Completed [facility] DTaP, Unspecified Formulation Unknown Completed [facility] DTaP, Unspecified Formulation Unknown Completed [facility] Meningococcal Polysaccharide (groups A, C, Y and W-135) conjugate vaccine (MCV4P) Unknown Completed [facility] IPV Unknown Completed [facility] IPV Unknown Completed [facility] IPV Unknown Completed [facility] IPV Unknown Completed [facility] DTAP Unknown Completed [facility] DTAP Unknown Completed [facility] DTAP Unknown Completed [facility] DTAP Unknown Completed [facility] HIB 4 Dose Schedule Unknown Completed [facility] HIB 4 Dose Schedule Unknown Completed [facility] HIB 4 Dose Schedule Unknown Completed [facility] HIB 4 Dose Schedule Unknown Completed [facility] HEPATITIS A Unknown Completed [facility] Hep B, Adol or Pedi Dosage Unknown Completed [facility] Hep B, Adol or Pedi Dosage Unknown Completed [facility] Hep B, Adol or Pedi Dosage Unknown Completed [facility] Hep B, Adol or Pedi Dosage Unknown Completed [facility] HPV Unknown Completed [facility] Meningococcal Vaccine Unknown Completed [facility] MMR Unknown Completed [facility] MMR Unknown Completed [facility] Polio (IPV/OPV) Unknown Completed [facility] Polio (IPV/OPV) Unknown Completed [facility] Polio (IPV/OPV) Unknown Completed [facility] Polio (IPV/OPV) Unknown Completed [facility] TDAP Unknown Completed [facility] Varicella (varivax)(chicken pox) Unknown Completed [facility] Varicella (varivax)(chicken pox) Unknown Completed [facility] Pneumococcal 7 Conjugate, PCV7 (Prevnar7) Unknown Completed [facility] Pneumococcal 7 Conjugate, PCV7 (Prevnar7) Unknown Completed [facility] Meningococcal Polysaccharide (groups A, C, Y and W-135) conjugate vaccine (MCV4P) Unknown Completed [facility] Meningococcal B, OMV Unknown Completed [facility] HPV9 Unknown Completed [facility] HEPATITIS A Unknown Completed [facility] Meningococcal B, OMV Unknown Completed [facility] HPV9 Unknown Completed [facility] DTaP, Unspecified Formulation Unknown Completed [facility] DTaP, Unspecified Formulation Unknown Completed [facility] DTaP, Unspecified Formulation Unknown Completed [facility] DTaP, Unspecified Formulation Unknown Completed [facility] DTaP, Unspecified Formulation Unknown Completed [facility] Meningococcal Polysaccharide (groups A, C, Y and W-135) conjugate vaccine (MCV4P) Unknown Completed [facility] IPV Unknown Completed [facility] IPV Unknown Completed [facility] IPV Unknown Completed [facility] IPV Unknown Completed [facility] DTAP Unknown Completed [facility] DTAP Unknown Completed [facility] DTAP Unknown [facility]pleted [facility] DTAP Unknown Completed [facility] HIB 4 Dose Schedule Unknown Completed [facility] HIB 4 Dose Schedule Unknown Completed [facility] HIB 4 Dose Schedule Unknown Completed [facility] HIB 4 Dose Schedule Unknown Completed [facility] HEPATITIS A Unknown Completed [facility] Hep B, Adol or Pedi Dosage Unknown Completed [facility] Hep B, Adol or Pedi Dosage Unknown Completed [facility] Hep B, Adol or Pedi Dosage Unknown Completed [facility] Hep B, Adol or Pedi Dosage Unknown Completed [facility] HPV Unknown Completed [facility] Meningococcal Vaccine Unknown Completed [facility] MMR Unknown Completed [facility] MMR Unknown Completed [facility] Polio (IPV/OPV) Unknown Completed [facility] Polio (IPV/OPV) Unknown Completed [facility] Polio (IPV/OPV) Unknown Completed [facility] Polio (IPV/OPV) Unknown Completed [facility] TDAP Unknown Completed [facility] Varicella (varivax)(chicken pox) Unknown Completed [facility] Varicella (varivax)(chicken pox) Unknown Completed [facility] Pneumococcal 7 Conjugate, PCV7 (Prevnar7) Unknown Completed [facility] Pneumococcal 7 Conjugate, PCV7 (Prevnar7) Unknown Completed [facility] Meningococcal Polysaccharide (groups A, C, Y and W-135) conjugate vaccine (MCV4P) Unknown Completed [facility] Meningococcal B, OMV Unknown Completed [facility] HPV9 Unknown Completed [facility] HEPATITIS A Unknown Completed [facility] Meningococcal B, OMV Unknown Completed [facility] HPV9 Unknown Completed [facility] DTaP, Unspecified Formulation Unknown Completed [facility] DTaP, Unspecified Formulation Unknown Completed [facility] DTaP, Unspecified Formulation Unknown Completed [facility] DTaP, Unspecified Formulation Unknown Completed [facility] DTaP, Unspecified Formulation Unknown Completed [facility] Meningococcal Polysaccharide (groups A, C, Y and W-135) conjugate vaccine (MCV4P) Unknown Completed [facility] IPV Unknown Completed [facility] IPV Unknown Completed [facility] IPV Unknown Completed [facility] IPV Unknown Completed [facility] DTAP Unknown Completed [facility] DTAP Unknown Completed [facility] DTAP Unknown Completed [facility] DTAP Unknown Completed [facility] HIB 4 Dose Schedule Unknown Completed [facility] HIB 4 Dose Schedule Unknown Completed [facility] HIB 4 Dose Schedule Unknown Completed [facility] HIB 4 Dose Schedule Unknown Completed [facility] HEPATITIS A Unknown Completed [facility] Hep B, Adol or Pedi Dosage Unknown Completed [facility] Hep B, Adol or Pedi Dosage Unknown Completed [facility] Hep B, Adol or Pedi Dosage Unknown Completed [facility] Hep B, Adol or Pedi Dosage Unknown Completed [facility] HPV Unknown Completed [facility] Meningococcal Vaccine Unknown Completed [facility] MMR Unknown Completed [facility] MMR Unknown Completed [facility] Polio (IPV/OPV) Unknown Completed [facility] Polio (IPV/OPV) Unknown Completed [facility] Polio (IPV/OPV) Unknown Completed [facility] Polio (IPV/OPV) Unknown Completed [facility] TDAP Unknown Completed [facility] Varicella (varivax)(chicken pox) Unknown Completed [facility] Varicella (varivax)(chicken pox) Unknown Completed [facility] Pneumococcal 7 Conjugate, PCV7 (Prevnar7) Unknown Completed [facility] Pneumococcal 7 Conjugate, PCV7 (Prevnar7) Unknown Completed [facility] Meningococcal Polysaccharide (groups A, C, Y and W-135) conjugate vaccine (MCV4P) Unknown Completed [facility] Meningococcal B, OMV Unknown Completed [facility] HPV9 Unknown Completed [facility] HEPATITIS A Unknown Completed [facility] Meningococcal B, OMV Unknown Completed [facility] HPV9 Unknown Completed [facility] DTaP, Unspecified Formulation Unknown Completed [facility] DTaP, Unspecified Formulation Unknown Completed [facility] DTaP, Unspecified Formulation Unknown Completed [facility] DTaP, Unspecified Formulation Unknown Completed [facility] DTaP, Unspecified Formulation Unknown Completed [facility] Meningococcal Polysaccharide (groups A, C, Y and W-135) conjugate vaccine (MCV4P) Unknown Completed [facility] IPV Unknown Completed [facility] IPV Unknown Completed [facility] IPV Unknown Completed [facility] IPV Unknown Completed [facility] DTAP Unknown Completed [facility] DTAP Unknown Completed [facility] DTAP Unknown Completed [facility] DTAP Unknown Completed [facility] HIB 4 Dose Schedule Unknown Completed [facility] HIB 4 Dose Schedule Unknown Completed [facility] HIB 4 Dose Schedule Unknown Completed [facility] HIB 4 Dose Schedule Unknown Completed [facility] HEPATITIS A Unknown Completed [facility] Hep B, Adol or Pedi Dosage Unknown Completed [facility] Hep B, Adol or Pedi Dosage Unknown Completed [facility] Hep B, Adol or Pedi Dosage Unknown Completed [facility] Hep B, Adol or Pedi Dosage Unknown Completed [facility] HPV Unknown Completed [facility] Meningococcal Vaccine Unknown Completed [facility] MMR Unknown Completed [facility] MMR Unknown Completed [facility] Polio (IPV/OPV) Unknown Completed [facility] Polio (IPV/OPV) Unknown Completed [facility] Polio (IPV/OPV) Unknown Completed [facility] Polio (IPV/OPV) Unknown Completed [facility] TDAP Unknown Completed [facility] Varicella (varivax)(chicken pox) Unknown Completed [facility] Varicella (varivax)(chicken pox) Unknown Completed [facility] Pneumococcal 7 Conjugate, PCV7 (Prevnar7) Unknown Completed [facility] Pneumococcal 7 Conjugate, PCV7 (Prevnar7) Unknown Completed [facility] Meningococcal Polysaccharide (groups A, C, Y and W-135) conjugate vaccine (MCV4P) Unknown Completed [facility] Meningococcal B, OMV Unknown Completed [facility] HPV9 Unknown Completed [facility] HEPATITIS A Unknown Completed [facility] Meningococcal B, OMV Unknown Completed [facility] HPV9 Unknown Completed [facility] DTaP, Unspecified Formulation Unknown Completed [facility] DTaP, Unspecified Formulation Unknown Completed [facility] DTaP, Unspecified Formulation Unknown Completed [facility] DTaP, Unspecified Formulation Unknown Completed [facility] DTaP, Unspecified Formulation Unknown Completed [facility] Meningococcal Polysaccharide (groups A, C, Y and W-135) conjugate vaccine (MCV4P) Unknown Completed [facility] IPV Unknown Completed [facility] IPV Unknown Completed [facility] IPV Unknown Completed [facility] IPV Unknown Completed [facility] DTAP Unknown Completed [facility] DTAP Unknown Completed [facility] DTAP Unknown Completed [facility] DTAP Unknown Completed [facility] HIB 4 Dose Schedule Unknown Completed [facility] HIB 4 Dose Schedule Unknown Completed [facility] HIB 4 Dose Schedule Unknown Completed [facility] HIB 4 Dose Schedule Unknown Completed [facility] HEPATITIS A Unknown Completed [facility] Hep B, Adol or Pedi Dosage Unknown Completed [facility] Hep B, Adol or Pedi Dosage Unknown Completed [facility] Hep B, Adol or Pedi Dosage Unknown Completed [facility] Hep B, Adol or Pedi Dosage Unknown Completed [facility] HPV Unknown Completed [facility] Meningococcal Vaccine Unknown Completed [facility] MMR Unknown Completed [facility] MMR Unknown Completed [facility] Polio (IPV/OPV) Unknown Completed [facility] Polio (IPV/OPV) Unknown Completed [facility] Polio (IPV/OPV) Unknown Completed [facility] Polio (IPV/OPV) Unknown Completed [facility] TDAP Unknown Completed [facility] Varicella (varivax)(chicken pox) Unknown Completed [facility] Varicella (varivax)(chicken pox) Unknown Completed [facility] Pneumococcal 7 Conjugate, PCV7 (Prevnar7) Unknown Completed [facility] Pneumococcal 7 Conjugate, PCV7 (Prevnar7) Unknown Completed [facility] Meningococcal Polysaccharide (groups A, C, Y and W-135) conjugate vaccine (MCV4P) Unknown Completed [facility] Meningococcal B, OMV Unknown Completed [facility] HPV9 Unknown Completed [facility] HEPATITIS A Unknown Completed [facility] Meningococcal B, OMV Unknown Completed [facility] HPV9 Unknown Completed [facility] DTaP, Unspecified Formulation Unknown Completed [facility] DTaP, Unspecified Formulation Unknown Completed [facility] DTaP, Unspecified Formulation Unknown Completed [facility] DTaP, Unspecified Formulation Unknown Completed [facility] DTaP, Unspecified Formulation Unknown Completed [facility] Meningococcal Polysaccharide (groups A, C, Y and W-135) conjugate vaccine (MCV4P) Unknown Completed [facility] IPV Unknown Completed [facility] IPV Unknown Completed [facility] IPV Unknown Completed [facility] IPV Unknown Completed [facility] DTAP Unknown Completed [facility] DTAP Unknown Completed [facility] DTAP Unknown Completed [facility] DTAP Unknown Completed [facility] HIB 4 Dose Schedule Unknown Completed [facility] HIB 4 Dose Schedule Unknown Completed [facility] HIB 4 Dose Schedule Unknown Completed [facility] HIB 4 Dose Schedule Unknown Completed [facility] HEPATITIS A Unknown Completed [facility] Hep B, Adol or Pedi Dosage Unknown Completed [facility] Hep B, Adol or Pedi Dosage Unknown Completed [facility] Hep B, Adol or Pedi Dosage Unknown Completed [facility] Hep B, Adol or Pedi Dosage Unknown Completed [facility] HPV Unknown Completed [facility] Meningococcal Vaccine Unknown Completed [facility] MMR Unknown Completed [facility] MMR Unknown Completed [facility] Polio (IPV/OPV) Unknown Completed [facility] Polio (IPV/OPV) Unknown Completed [facility] Polio (IPV/OPV) Unknown Completed [facility] Polio (IPV/OPV) Unknown Completed [facility] TDAP Unknown Completed [facility] Varicella (varivax)(chicken pox) Unknown Completed [facility] Varicella (varivax)(chicken pox) Unknown Completed [facility] Pneumococcal 7 Conjugate, PCV7 (Prevnar7) Unknown Completed [facility] Pneumococcal 7 Conjugate, PCV7 (Prevnar7) Unknown Completed [facility] Meningococcal Polysaccharide (groups A, C, Y and W-135) conjugate vaccine (MCV4P) Unknown Completed [facility] Meningococcal B, OMV Unknown Completed [facility] HPV9 Unknown Completed [facility] HEPATITIS A Unknown Completed [facility] Meningococcal B, OMV Unknown Completed [facility] HPV9 Unknown Completed [facility] DTaP, Unspecified Formulation Unknown Completed [facility] DTaP, Unspecified Formulation Unknown Completed [facility] DTaP, Unspecified Formulation Unknown Completed [facility] DTaP, Unspecified Formulation Unknown Completed [facility] DTaP, Unspecified Formulation Unknown Completed [facility] Meningococcal Polysaccharide (groups A, C, Y and W-135) conjugate vaccine (MCV4P) Unknown Completed [facility] IPV Unknown Completed [facility] IPV Unknown Completed [facility] IPV Unknown Completed [facility] IPV Unknown Completed [facility] DTAP Unknown Completed [facility] DTAP Unknown Completed [facility] DTAP Unknown Completed [facility] DTAP Unknown Completed [facility] HIB 4 Dose Schedule Unknown Completed [facility] HIB 4 Dose Schedule Unknown Completed [facility] HIB 4 Dose Schedule Unknown Completed [facility] HIB 4 Dose Schedule Unknown Completed [facility] HEPATITIS A Unknown Completed [facility] Hep B, Adol or Pedi Dosage Unknown Completed [facility] Hep B, Adol or Pedi Dosage Unknown Completed [facility] Hep B, Adol or Pedi Dosage Unknown Completed [facility] Hep B, Adol or Pedi Dosage Unknown Completed [facility] HPV Unknown Completed [facility] Meningococcal Vaccine Unknown Completed [facility] MMR Unknown Completed [facility] MMR Unknown Completed [facility] Polio (IPV/OPV) Unknown Completed [facility] Polio (IPV/OPV) Unknown Completed [facility] Polio (IPV/OPV[facility] Unknown Completed [facility] Polio (IPV/OPV) Unknown Completed [facility] TDAP Unknown Completed [facility] Varicella (varivax)(chicken pox) Unknown Completed [facility] Varicella (varivax)(chicken pox) Unknown Completed [facility] Pneumococcal 7 Conjugate, PCV7 (Prevnar7) Unknown Completed [facility] Pneumococcal 7 Conjugate, PCV7 (Prevnar7) Unknown Completed [facility] Meningococcal Polysaccharide (groups A, C, Y and W-135) conjugate vaccine (MCV4P) Unknown Completed [facility] Meningococcal B, OMV Unknown Completed [facility] HPV9 Unknown Completed [facility] HEPATITIS A Unknown Completed [facility] Meningococcal B, OMV Unknown Completed [facility] HPV9 Unknown Completed [facility] DTaP, Unspecified Formulation Unknown Completed [facility] DTaP, Unspecified Formulation Unknown Completed [facility] DTaP, Unspecified Formulation Unknown Completed [facility] DTaP, Unspecified Formulation Unknown Completed [facility] DTaP, Unspecified Formulation Unknown Completed [facility] Meningococcal Polysaccharide (groups A, C, Y and W-135) conjugate vaccine (MCV4P) Unknown Completed [facility] IPV Unknown Completed [facility] IPV Unknown Completed [facility] IPV Unknown Completed [facility] IPV Unknown Completed [facility] DTAP Unknown Completed [facility] DTAP Unknown Completed [facility] DTAP Unknown Completed [facility] DTAP Unknown Completed [facility] HIB 4 Dose Schedule Unknown Completed [facility] HIB 4 Dose Schedule Unknown Completed [facility] HIB 4 Dose Schedule Unknown Completed [facility] HIB 4 Dose Schedule Unknown Completed [facility] HEPATITIS A Unknown Completed [facility] Hep B, Adol or Pedi Dosage Unknown Completed [facility] Hep B, Adol or Pedi Dosage Unknown Completed [facility] Hep B, Adol or Pedi Dosage Unknown Completed [facility] Hep B, Adol or Pedi Dosage Unknown Completed [facility] HPV Unknown Completed [facility] Meningococcal Vaccine Unknown Completed [facility] MMR Unknown Completed [facility] MMR Unknown Completed [facility] Polio (IPV/OPV) Unknown Com[facility] Polio (IPV/OPV[facility] Unknown [facility] Polio (IPV/OPV) Unknown Completed [facility] Polio (IPV/OPV) Unknown Completed [facility] TDAP Unknown Completed [facility] Varicella (varivax)(chicken pox) Unknown Completed [facility] Varicella (varivax)(chicken pox) Unknown Completed [facility] Pneumococcal 7 Conjugate, PCV7 (Prevnar7) Unknown Completed [facility] Pneumococcal 7 Conjugate, PCV7 (Prevnar7) Unknown Completed [facility] Meningococcal Polysaccharide (groups A, C, Y and W-135) conjugate vaccine (MCV4P) Unknown Completed [facility] Meningococcal B, OMV Unknown Completed [facility] HPV9 Unknown Completed [facility] HEPATITIS A Unknown Completed [facility] Meningococcal B, OMV Unknown Completed [facility] HPV9 Unknown Completed [facility] DTaP, Unspecified Formulation Unknown Completed [facility] DTaP, Unspecified Formulation Unknown Completed [facility] DTaP, Unspecified Formulation Unknown Completed [facility] DTaP, Unspecified Formulation Unknown Completed [facility] DTaP, Unspecified Formulation Unknown Completed [facility] Meningococcal Polysaccharide (groups A, C, Y and W-135) conjugate vaccine (MCV4P) Unknown Completed [facility] IPV Unknown Completed [facility] IPV Unknown Completed [facility] IPV Unknown Completed [facility] IPV Unknown Completed [facility] DTAP Unknown Completed [facility] DTAP Unknown Completed [facility] DTAP Unknown Completed [facility] DTAP Unknown Completed [facility] HIB 4 Dose Schedule Unknown Completed [facility] HIB 4 Dose Schedule Unknown Completed [facility] HIB 4 Dose Schedule Unknown Completed [facility] HIB 4 Dose Schedule Unknown Completed [facility] HEPATITIS A Unknown Completed [facility] Hep B, Adol or Pedi Dosage Unknown Completed [facility] Hep B, Adol or Pedi Dosage Unknown Completed [facility] Hep B, Adol or Pedi Dosage Unknown Completed [facility] Hep B, Adol or Pedi Dosage Unknown Completed [facility] HPV Unknown Completed [facility] Meningococcal Vaccine Unknown Completed [facility] MMR Unknown Completed [facility] MMR Unknown Completed [facility] Polio (IPV/OPV) Unknown Completed [facility] Polio (IPV/OPV) Unknown Completed [facility] Polio (IPV/OPV) Unknown Completed [facility] Polio (IPV/OPV) Unknown Completed [facility] TDAP Unknown Completed [facility] Varicella (varivax)(chicken pox) Unknown Completed [facility] Varicella (varivax)(chicken pox) Unknown Completed [facility] Pneumococcal 7 Conjugate, PCV7 (Prevnar7) Unknown Completed [facility] Pneumococcal 7 Conjugate, PCV7 (Prevnar7) Unknown Completed [facility] Meningococcal Polysaccharide (groups A, C, Y and W-135) conjugate vaccine (MCV4P) Unknown Completed [facility] Meningococcal B, OMV Unknown Completed [facility] HPV9 Unknown Completed [facility] HEPATITIS A Unknown Completed [facility] Meningococcal B, OMV Unknown Completed [facility] HPV9 Unknown Completed [facility] DTaP, Unspecified Formulation Unknown Completed [facility] DTaP, Unspecified Formulation Unknown Completed [facility] DTaP, Unspecified Formulation Unknown Completed [facility] DTaP, Unspecified Formulation Unknown Completed [facility] DTaP, Unspecified Formulation Unknown Completed [facility] Meningococcal Polysaccharide (groups A, C, Y and W-135) conjugate vaccine (MCV4P) Unknown Completed [facility] IPV Unknown Completed [facility] IPV Unknown Completed [facility] IPV Unknown Completed [facility] IPV Unknown Completed [facility] DTAP Unknown Completed [facility] DTAP Unknown Completed [facility] DTAP Unknown Completed [facility] DTAP Unknown Completed [facility] HIB 4 Dose Schedule Unknown Completed [facility] HIB 4 Dose Schedule Unknown Completed [facility] HIB 4 Dose Schedule Unknown Completed [facility] HIB 4 Dose Schedule Unknown Completed [facility] HEPATITIS A Unknown Completed [facility] Hep B, Adol or Pedi Dosage Unknown Completed [facility] Hep B, Adol or Pedi Dosage Unknown Completed [facility] Hep B, Adol or Pedi Dosage Unknown Completed [facility] Hep B, Adol or Pedi Dosage Unknown Completed [facility] HPV Unknown Completed [facility] Meningococcal Vaccine Unknown Completed [facility] MMR Unknown Completed [facility] MMR Unknown Completed [facility] Polio (IPV/OPV) Unknown Completed [facility] Polio (IPV/OPV) Unknown Completed [facility] Polio (IPV/OPV) Unknown Completed [facility] Polio (IPV/OPV) Unknown Completed [facility] TDAP Unknown Completed [facility] Varicella (varivax)(chicken pox) Unknown Completed [facility] Varicella (varivax)(chicken pox) Unknown Completed [facility] Pneumococcal 7 Conjugate, PCV7 (Prevnar7) Unknown Completed [facility] Pneumococcal 7 Conjugate, PCV7 (Prevnar7) Unknown Completed [facility] Meningococcal Polysaccharide (groups A, C, Y and W-135) conjugate vaccine (MCV4P) Unknown Completed [facility] Meningococcal B, OMV Unknown Completed [facility] HPV9 Unknown Completed [facility] HEPATITIS A Unknown Completed [facility] Meningococcal B, OMV Unknown Completed [facility] HPV9 Unknown Completed [facility] DTaP, Unspecified Formulation Unknown Completed [facility] DTaP, Unspecified Formulation Unknown Completed [facility] DTaP, Unspecified Formulation Unknown Completed [facility] DTaP, Unspecified Formulation Unknown Completed [facility] DTaP, Unspecified Formulation Unknown Completed [facility] Meningococcal Polysaccharide (groups A, C, Y and W-135) conjugate vaccine (MCV4P) Unknown Completed [facility] IPV Unknown Completed [facility] IPV Unknown Completed [facility] IPV Unknown Completed [facility] IPV Unknown Completed [facility] Vital Signs Vital Name Observation Time Observation Value Comments S ource Systolic blood pressure 2023-12-26 15:00:00 111 mm[Hg] [facility] Diastolic blood pressure 2023-12-26 15:00:00 68 mm[Hg] [facility] Heart rate 2023-12-26 15:00:00 84 /min [facility] Body temperature 2023-12-26 15:00:00 36.5 Marguerite [facility] Body height 2023-12-26 15:00:00 165.1 cm [facility] Body weight 2023-12-26 15:00:00 56.79 kg Univ [facility] BMI 2023-12-26 15:00:00 20.83 kg/m2 Univ [facility] Systolic blood pressure 2023-12-22 00:03:00 109 mm[Hg] [facility] Diastolic blood pressure 2023-12-22 00:03:00 69 mm[Hg] [facility] Heart rate 2023-12-22 00:03:00 87 /min [facility] Body temperature 2023-12-22 00:03:00 36.39 Marguerite [facility] Respiratory rate 2023-12-22 00:03:00 16 /min [facility] Body height 2023-12-22 00:03:00 165.1 cm Univ [facility] Body weight 2023-12-22 00:03:00 60.918 kg Univ [facility] BMI 2023-12-22 00:03:00 22.35 kg/m2 [facility] Oxygen saturation in Arterial blood by Pulse oximetry 2023-12-22 00:03:00 96 /min [facility] Systolic blood pressure 2023-12-08 13:14:00 97 mm[Hg] [facility] Diastolic blood pressure 2023-12-08 13:14:00 63 mm[Hg] [facility] Heart rate 2023-12-08 13:14:00 83 /min [facility] Body temperature 2023-12-08 13:14:00 36.56 Marguerite [facility] Body height 2023-12-08 13:14:00 165.1 cm [facility] Body weight 2023-12-08 13:14:00 59.149 kg [facility] BMI 2023-12-08 13:14:00 21.70 kg/m2 Univ [facility] Oxygen saturation in Arterial blood by Pulse oximetry 2023-12-08 13:14:00 93 /min [facility] Systolic blood pressure 2023-11-23 16:13:00 121 mm[Hg] [facility] Diastolic blood pressure 2023-11-23 16:13:00 74 mm[Hg] [facility] Heart rate 2023-11-23 16:13:00 67 /min [facility] Body temperature 2023-11-23 16:13:00 36.5 Marguerite [facility] Respiratory rate 2023-11-23 16:13:00 18 /min [facility] Body height 2023-11-23 16:13:00 165.1 cm Univ [facility] Body weight 2023-11-23 16:13:00 61.417 kg [facility] BMI 2023-11-23 16:13:00 22.53 kg/m2 [facility] Oxygen saturation in Arterial blood by Pulse oximetry 2023-11-23 16:13:00 99 /min [facility] Systolic blood pressure 2023-02-22 01:09:00 128 mm[Hg] [facility] Diastolic blood pressure 2023-02-22 01:09:00 64 mm[Hg] [facility] Heart rate 2023-02-22 01:09:00 106 /min [facility] Body temperature 2023-02-22 01:09:00 36.83 Marguerite [facility] Respiratory rate 2023-02-22 01:09:00 20 /min [facility] Body height 2023-02-22 01:09:00 165.1 cm Univ [facility] Body weight 2023-02-22 01:09:00 58.996 kg [facility] BMI 2023-02-22 01:09:00 21.64 kg/m2 [facility] Oxygen saturation in Arterial blood by Pulse oximetry 2023-02-22 01:09:00 97 /min [facility] Systolic blood pressure 2023-02-20 13:40:00 131 mm[Hg] [facility] Diastolic blood pressure 2023-02-20 13:40:00 69 mm[Hg] [facility] Heart rate 2023-02-20 13:40:00 95 /min [facility] Body temperature 2023-02-20 13:40:00 37.61 Marguerite [facility] Respiratory rate 2023-02-20 13:40:00 16 /min [facility] Body height 2023-02-20 13:40:00 165.1 cm [facility] Body weight 2023-02-20 13:40:00 54.885 kg Univ [facility] BMI 2023-02-20 13:40:00 20.14 kg/m2 Univ [facility] Oxygen saturation in Arterial blood by Pulse oximetry 2023-02-20 13:40:00 100 /min [facility] Systolic blood pressure 2022-10-22 18:51:00 131 mm[Hg] [facility] Diastolic blood pressure 2022-10-22 18:51:00 84 mm[Hg] [facility] Heart rate 2022-10-22 18:51:00 76 /min [facility] Body temperature 2022-10-22 18:51:00 36.78 Marguerite [facility] Respiratory rate 2022-10-22 18:51:00 16 /min [facility] Body weight 2022-10-22 18:51:00 54.976 kg Univ [facility] BMI 2022-10-22 18:51:00 20.17 kg/m2 Univ [facility] Oxygen saturation in Arterial blood by Pulse oximetry 2022-10-22 18:51:00 100 /min [facility] Systolic blood pressure 2022-08-12 19:26:00 107 mm[Hg] [facility] Diastolic blood pressure 2022-08-12 19:26:00 69 mm[Hg] [facility] Heart rate 2022-08-12 19:26:00 94 /min [facility] Body temperature 2022-08-12 19:26:00 37.06 Marguerite [facility] Body height 2022-08-12 19:26:00 165.1 cm [facility] Body weight 2022-08-12 19:26:00 54.613 kg [facility] BMI 2022-08-12 19:26:00 20.04 kg/m2 [facility] Systolic blood pressure 2022-04-21 19:41:00 107 mm[Hg] [place] [facility] Diastolic blood pressure 2022-04-21 19:41:00 69 mm[Hg] [place] [facility] Heart rate 2022-04-21 19:41:00 75 /min [facility] Body temperature 2022-04-21 19:41:00 36.61 Marguerite [facility] Body height 2022-04-21 19:41:00 165.1 cm [facility] Body weight 2022-04-21 19:41:00 58.06 kg [facility] BMI 2022-04-21 19:41:00 21.30 kg/m2 [facility] Procedures Procedure Date / Time Performed Performing Clinicia n Source POCT TEST 2023-12-26 00:00:00 Avni Leigh [facility] POCT URINALYSIS W/O SPECIFIC GRAVITY 2023-12-26 00:00:00 Avni Leigh [facility] CT ABDOMEN WO CONTRAST 2023-11-28 18:10:00 Morenita Hunt [facility] ASSIGNMENT OF BENEFITS 2023-02-20 14:11:12 Docto r Unassigned, [place] [facility] RAPID STREP SCREEN FOR GROUP A 2023-02-20 13:44:00 Kayla Billings [facility] RAPID INFLUENZA A/B 2023-02-20 13:44:00 Janie Billings ra [facility] COVID-19 (ID NOW RAPID TESTING) 2023-02-20 13:44:00 Kayla Billings [facility] CONSENT/REFUSAL FOR DIAGNOSIS AND TREATMENT 2023-02-20 13:33:59 Doctor Unassigned, [place] [facility] FREE T4 2022-10-22 19:19:00 Kristel Wen [facility] COMP. METABOLIC PANEL ([id number]) 2022-10-22 19:19:00 Kristel Wen [facility] ASSIGNMENT OF BENEFITS 2022-08-12 19:18:58 Docto r Unassigned, [place] [facility] POCT URINALYSIS W/O SPECIFIC GRAVITY 2022-08-12 00:00:00 Avni Leigh [facility] Encounters Start Date/Time End Date/Time Encounter Type Admission Type Attending [facility] Care Department Encounter ID Source 2021-06-09 01:20:57 Emergency [facility] [id number] [facility] 2024-03-27 09:40:00 2024-03-27 09:40:00 Outpatient R CHATA REIS [facility] [id number] [facility] 2024-01-05 14:00:00 2024-01-05 14:00:00 Outpatient R AVNI LEIGH [facility] [id number] [facility] 2023-12-30 00:00:00 2023-12-30 08:47:49 Telephone Avni Leigh [facility] 1.2.840.114 350.1.13.10 4.2.7.2.686 [id number] [facility] 2023-12-28 00:00:00 2023-12-28 15:31:34 Telephone Avni Leigh [facility] 1.2.840.114 350.1.13.10 4.2.7.2.686 [id number] [facility] 2023-12-27 00:00:00 2023-12-27 16:47:44 Case Management Avni Leigh [facility] 1.2.840.114 350.1.13.10 4.2.7.2.686 [id number] [facility] 2023-12-27 13:00:00 2023-12-27 13:00:00 Outpatient R [facility] [id number] [facility] 2023-12-26 10:00:00 2023-12-26 10:25:43 Outpatient R AVNI LEIGH [facility] [id number] [facility] 2023-12-26 10:00:00 2023-12-26 10:25:43 Initial Visit LeighAvni Usman [facility] 1.2.840.114 350.1.13.10 4.2.7.2.686 [id number] [facility] 2023-12-21 19:00:00 2023-12-21 19:17:40 Outpatient R NAY SAN [facility] [id number] [facility] 2023-12-21 19:00:00 2023-12-21 19:17:40 Urgent Care [place] Unknown, Attending [facility] 1.2.840.114 350.1.13.10 4.2.7.2.686 [id number] [facility] 2023-12-20 13:00:00 2023-12-20 13:00:00 Outpatient R ALEJANDRA PATIÑO [facility] [id number] [facility] 2023-12-13 00:00:00 2023-12-13 14:24:01 Telephone Chata Reis [facility] 1.2.840.114 350.1.13.10 4.2.7.2.686 [id number] [facility] 2023-12-09 00:00:00 2023-12-09 00:00:00 Telephone IgorivonChata davis [facility] 1.2.840.114 350.1.13.10 4.2.7.2.686 [id number] [facility] 2023-12-09 00:00:00 2023-12-09 00:00:00 Telephone Chata Reis [facility] 1.2.840.114 350.1.13.10 4.2.7.2.686 [id number] [facility] 2023-12-08 08:00:00 2023-12-08 08:44:40 Outpatient R CHATA REIS [facility] [id number] [facility] 2023-12-08 08:00:00 2023-12-08 08:44:40 Office Visit Chata Reis [facility] 1.2.840.114 350.1.13.10 4.2.7.2.686 [id number] [facility] 2023-12-08 00:00:00 2023-12-08 00:00:00 Telephone Chata Reis [facility] 1.2.840.114 350.1.13.10 4.2.7.2.686 [id number] [facility] 2023-12-08 00:00:00 2023-12-08 00:00:00 Telephone Chata Reis [facility] 1.2.840.114 350.1.13.10 4.2.7.2.686 [id number] [facility] 2023-11-28 12:35:30 2023-11-28 23:59:00 Outpatient R OBI-MORENITA BRITO OBI-ALISHA [facility] [id number] [facility] 2023-11-28 12:35:30 2023-11-28 23:59:00 [facility] 1.2.840.114 350.1.13.10 4.2.7.2.686 [id number] [facility] 2023-11-23 13:15:00 2023-11-23 14:13:10 Outpatient R OBI-ALISHA [facility] [id number] [facility] 2023-11-23 13:15:00 2023-11-23 13:30:00 Community Engagement Coordinator Visit 2, [facility] 1.2.840.114 350.1.13.10 4.2.7.2.686 [id number] [facility] 2023-11-23 10:40:00 2023-11-23 11:55:06 [facility] 1.2.840.114 350.1.13.10 4.2.7.2.686 [id number] [facility] 2023-08-16 15:00:00 2023-08-16 15:00:00 Outpatient AVNI STEEL [facility] [id number] [facility] 2023-08-04 14:04:28 2023-08-04 14:04:28 Outpatient SFA [facility] 1228 Tremayne Panda 2023-07-27 11:33:09 2023-07-27 11:33:09 Outpatient SFA SFA 1220 Trem[place]ne Panda 2023-06-28 08:11:01 2023-06-28 08:11:01 Outpatient SFA SFA [id number] Tremayen Srinivas Farzad 2023-06-15 08:40:08 2023-06-15 08:40:08 Outpatient SFA SFA [id number] Tremayne Srinivas Farzad 2023-05-27 11:46:59 2023-05-27 11:46:59 Outpatient SFA SFA [id number] Tremayne Srinivas Farzad 2023-04-28 14:50:22 2023-04-28 14:50:22 Outpatient SFA SFA [id number] Tremayne Srinivas Farzad 2023-02-21 20:00:00 2023-02-21 20:24:23 Outpatient ROSITA CAMPA [facility] [id number] [facility] 2023-02-21 20:00:00 2023-02-21 20:20:00 Urgent Care Rosita Recinos Unknown, Attending [facility] 1.84.114 350.1.13.10 4.2.7.2.686 [id number] [facility] 2023-02-21 00:00:00 2023-02-21 00:00:00 Letter (Out) Rosita Recinos [facility] 1.84.114 350.1.13.10 4.2.7.2.686 [id number] [facility] 2023-02-20 08:42:00 2023-02-20 10:10:00 Emergency X KAYLA BILLINGS [facility] [id number] [facility] 2023-02-20 08:42:00 2023-02-20 10:10:00 Emergency Kayla Billings [facility] 1.84.114 350.1.13.10 4.2.7.2.686 [id number] [facility] 2023-02-16 00:00:00 2023-02-16 00:00:00 RefChata Anderson [facility] 1.840.114 350.1.13.10 4.2.7.2.686 [id number] [facility] 2023-02-04 13:30:00 2023-02-04 13:30:00 Outpatient KRISTEL JORDAN [facility] [id number] [facility] 2022-12-13 00:00:00 2022-12-13 00:00:00 RefChata Anderson [facility] 1.840.114 350.1.13.10 4.2.7.2.686 [id number] [facility] 2022-11-11 00:00:00 2022-11-11 00:00:00 Refill Kristel Wen [facility] 1.2.840.114 350.1.13.10 4.2.7.2.686 [id number] [facility] 2022-11-09 00:00:00 2022-11-09 00:00:00 Telephone Chata Reis [facility] 1.2.840.114 350.1.13.10 4.2.7.2.686 [id number] [facility] 2022-10-25 00:00:00 2022-10-25 00:00:00 Telephone Chata Reis [facility] 1.2.840.114 350.1.13.10 4.2.7.2.686 [id number] [facility] 2022-10-22 14:15:00 2022-10-22 14:30:00 Community Engagement Coordinator Visit 2, Adc Lab Kristel Wen [facility] 1.2.840.114 350.1.13.10 4.2.7.2.686 [id number] [facility] 2022-10-22 13:30:00 2022-10-22 14:12:58 Outpatient R BEHZAD KRISTEL [facility] [id number] [facility] 2022-10-22 13:30:00 2022-10-22 14:12:58 Office Visit Carl[place] [facility] 1.2.840.114 350.1.13.10 4.2.7.2.686 [id number] [facility] 2022-10-22 00:00:00 2022-10-22 00:00:00 Case Management Avni Leigh [facility] 1.840.114 350.1.13.10 4.2.7.2.686 [id number] [facility] 2022-08-19 00:00:00 2022-08-19 00:00:00 Patient Secure Msg Doctor Unassigned, [place] [facility] 1.2840.114 350.1.13.10 4.2.7.2.686 [id number] [facility] 2022-08-12 13:30:00 2022-08-12 14:12:06 Outpatient R REESE [facility] [id number] [facility] 2022-08-12 13:30:00 2022-08-12 14:12:06 Office Visit Avni Leigh [facility] 1.840.114 350.1.13.10 4.2.7.2.686 [id number] [facility] 2022-08-12 13:30:00 2022-08-12 13:30:00 Outpatient R REESE [facility] [id number] [facility] 2022-08-12 13:30:00 2022-08-12 13:30:00 Outpatient R LEIGH [facility] [id number] [facility] 2022-08-12 00:00:00 2022-08-12 00:00:00 Orders Only Doctor Unassigned, [place] [facility] 1.0.114 350.1.13.10 4.2.7.2.686 [id number] [facility] 2022-05-27 00:00:00 2022-05-27 00:00:00 Telephone Haseeb [facility] 1.840.114 350.1.13.10 4.2.7.2.686 [id number] [facility] 2022-05-26 14:50:00 2022-05-26 14:50:00 Outpatient R MAURA MEMBRENO [facility] [id number] [facility] 2022-04-21 14:20:00 2022-04-21 14:58:03 Outpatient R MAURA MEMBRENO [facility] [id number] [facility] 2022-04-21 14:20:00 2022-04-21 14:58:03 Office Visit Haseeb [facility] 1.840.114 350.1.13.10 4.2.7.2.686 [id number] [facility] 2022-04-21 14:20:00 2022-04-21 14:20:00 Outpatient R HASEEB [facility] [id number] [facility] 2022-04-09 05:22:00 2022-04-09 09:05:00 Outpatient MAURA SWENSON [facility] SOR [id number] [facility] 2022-04-09 05:22:00 2022-04-09 09:05:00 Hospital Encounter [facility] [facility] 1.840.114 350.1.13.10 4.2.7.2.686 [id number] [facility] 2022-04-09 07:05:00 2022-04-09 08:09:00 Surgery Haseeb [facility] SPECIALTY CARE NOTREES AT [facility] 1.840.114 350.1.13.10 4.2.7.2.686 [id number] [facility] 2022-04-08 14:00:00 2022-04-08 14:15:00 Laboratory Only Only, Adc Test Max Rasmussen [facility] 1.2840.114 350.1.13.10 4.2.7.2.686 [id number] [facility] 2022-04-08 14:00:00 2022-04-08 14:00:00 Outpatient R MAX RASMUSSEN [facility] [id number] [facility] 2022-04-08 00:00:00 2022-04-08 00:00:00 Orders Only Doctor Unassigned, [place] [facility] 1.2.840.114 350.1.13.10 4.2.7.2.686 [id number] [facility] 2022-03-15 00:00:00 2022-03-15 00:00:00 Telephone Haseeb [facility] AT [facility] 1.2.840.114 350.1.13.10 4.2.7.2.686 [id number] [facility] 2022-03-10 09:20:00 2022-03-10 09:49:03 [facility] 1..840.114 350.1.13.10 4.2.7.2.686 [id number] [facility] 2022-03-10 09:20:00 2022-03-10 09:49:03 Outpatient R MELISSA [facility] [id number] [facility] 2022-03-10 09:20:00 2022-03-10 09:20:00 Outpatient R MELISSA [facility] [id number] [facility] 2022-03-01 09:09:00 2022-03-01 09:09:00 Outpatient R MAURA MEMBR[facility] [id number] [facility] 2022-01-27 14:30:00 2022-01-27 14:59:13 Outpatient R MAURA MEMBRENO [facility] [id number] [facility] 2022-01-27 14:30:00 2022-01-27 14:59:13 Office Visit Maura Membreno [facility] 1.2.840.114 350.1.13.10 4.2.7.2.686 [id number] [facility] 2021-12-24 13:00:00 2021-12-24 13:33:45 Outpatient R AVNI LEIGH [facility] [id number] [facility] 2021-12-24 13:00:00 2021-12-24 13:33:45 Routine Visit Avni Leigh [facility] 1.2.840.114 350.1.13.10 4.2.7.2.686 [id number] [facility] 2021-11-19 12:10:00 2021-11-21 18:50:00 Hospital Encounter Yvette Nicolle Tera Avni Leigh [facility] 1.2.840.114 350.1.13.10 4.2.7.2.686 [id number] [facility] 2021-11-20 01:50:00 2021-11-20 14:27:00 [facility] 1.2.840.114 350.1.13.10 4.2.7.2.686 [id number] [facility] 2021-11-19 00:00:00 2021-11-19 00:00:00 Telephone Avni Leigh [facility] 1.2.840.114 350.1.13.10 4.2.7.2.686 [id number] [facility] 2021-11-18 13:45:00 2021-11-18 14:00:00 Laboratory Only Only, Adc Test Nicolle Crawford [facility] 1.2.840.114 350.1.13.10 4.2.7.2.686 [id number] [facility] 2021-11-18 13:45:00 2021-11-18 13:45:00 Outpatient R NICOLLE CRAWFORD [facility] [id number] [facility] 2021-11-18 13:45:00 2021-11-18 13:45:00 Out[facility] [id number] [facility] 2021-11-16 14:15:00 2021-11-16 14:36:57 Outpatient R MISTY [facility] [id number] [facility] 2021-11-16 14:15:00 2021-11-16 14:36:57 Routine Visit Sophia Jay [facility] 1.2.840.114 350.1.13.10 4.2.7.2.686 [id number] [facility] 2021-11-09 14:30:00 2021-11-09 15:06:47 [facility] [id number] [facility] 2021-11-09 14:30:00 2021-11-09 15:06:47 Routine Visit Avni Leigh [facility] BU[facility] 1.2.840.114 350.1.13.10 4.2.7.2.686 [id number] [facility] 2021-11-05 15:15:00 2021-11-05 15:15:00 Outpatient R AVNI LEIGH [facility] [id number] [facility] 2021-11-02 14:00:00 2021-11-02 14:15:00 Community Engagement Coordinator Visit 2, Adc Lab Avni Leigh [facility] 1.2.840.114 350.1.13.10 4.2.7.2.686 [id number] [facility] 2021-11-02 14:00:00 2021-11-02 14:00:00 Outpatient R AVNI LEIGH [facility] [id number] [facility] 2021-11-02 13:00:00 2021-11-02 13:55:06 Routine Visit Avni Leigh [facility] 1.2.840.114 350.1.13.10 4.2.7.2.686 [id number] [facility] 2021-11-02 00:00:00 2021-11-02 00:00:00 Orders Only Doctor Unassigned, [place] [facility] 1..840.114 350.1.13.10 4.2.7.2.686 [id number] [facility] 2021-10-22 14:45:00 2021-10-22 15:34:52 Outpatient [facility] [id number] [facility] 2021-10-22 14:45:00 2021-10-22 15:34:52 Routine Visit Avni Leigh Sophia [facility] 1.2.840.114 350.1.13.10 4.2.7.2.686 [id number] [facility] 2021-10-08 13:00:00 2021-10-08 13:43:37 Outpatient R AVNI LEIGH [facility] [id number] [facility] 2021-10-08 13:00:00 2021-10-08 13:43:37 Routine Visit Avni Leigh [facility] 1.2.840.114 350.1.13.10 4.2.7.2.686 [id number] [facility] 2021-09-28 00:00:00 2021-09-28 00:00:00 Telephone Avni Leigh [facility] 1.2.840.114 350.1.13.10 4.2.7.2.686 [id number] [facility] 2021-09-23 13:00:00 2021-09-23 13:28:36 Outpatient R SOPHIA JAY [facility] [id number] [facility] 2021-09-23 13:00:00 2021-09-23 13:28:36 Routine Visit Sophia Jay [facility] 1.2.840.114 350.1.13.10 4.2.7.2.686 [id number] [facility] 2021-08-27 10:30:00 2021-08-27 10:30:00 [facility] [id number] [facility] 2021-08-27 10:30:00 2021-08-27 10:30:00 Community Engagement Coordinator Visit 2, Adc Lab Avni Leigh [facility] BUILDING 1.2.840.114 350.1.13.10 4.2.7.2.686 [id number] [facility] 2021-08-27 09:45:00 2021-08-27 10:00:00 Routine Visit Avni Leigh [facility] BUILDING 1.2.840.114 350.1.13.10 4.2.7.2.686 [id number] [facility] 2021-08-03 12:45:00 2021-08-03 12:45:00 Outpatient R DINORAH SYKES [facility] [id number] [facility] 2021-07-30 14:30:00 2021-07-30 15:25:43 Outpatient R AVNI LEIGH [facility] [id number] [facility] 2021-07-30 14:30:00 2021-07-30 15:25:43 Initial Visit LeighAvni Cam [facility] 1.2840.114 350.1.13.10 4.2.7.2.686 [id number] [facility] 2021-07-25 00:00:00 2021-07-25 00:00:00 Nurse Triage Franky Cornelia Gordillo [facility] 1.840.114 350.1.13.10 4.2.7.2.686 [id number] [facility] 2021-07-16 06:28:00 2021-07-16 08:58:00 Emergency X MAIRA ENRIQUEZ [facility] [id number] [facility] 2021-07-16 06:28:00 2021-07-16 08:58:00 Emergency PingthomasnazarioMaira [facility] 1.840.114 350.1.13.10 4.2.7.2.686 [id number] [facility] 2021-07-16 00:00:00 2021-07-16 00:00:00 Orders Only Doctor Unassigned, [place] [facility] 1.2840.114 350.1.13.10 4.2.7.2.686 [id number] [facility] 2021-07-16 00:00:00 2021-07-16 00:00:00 Telephone Jenny Billings [facility] [employer] [facility] 1.0.114 350.1.13.10 4.2.7.2.686 [id number] [facility] 2021-07-06 08:50:42 2021-07-06 09:21:45 Routine Visit Jenny Billings [facility] [employer] [employer] [employer] [facility] 1.840.114 350.1.13.10 4.2.7.2.686 [id number] [facility] 2021-07-06 07:54:11 2021-07-06 08:54:11 Community Engagement Coordinator Visit Ultrasound, Nataly Baumann [facility] THERAPIST [place] [facility] 1.2.840.114 350.1.13.10 4.2.7.2.686 [id number] [facility] 2021-07-06 08:00:00 2021-07-06 08:50:14 Outpatient NATALY BRUNSON [facility] [id number] [facility] 2021-06-08 14:15:00 2021-06-08 14:45:55 Outpatient DAVID SCOTT [facility] [id number] [facility] 2021-06-08 14:06:40 2021-06-08 14:45:55 Routine Visit Provider, David Jefferson [facility] [employer] THERAPIST [place] [facility] 1.2.840.114 350.1.13.10 4.2.7.2.686 [id number] [facility] 2021-05-13 00:00:00 2021-05-13 00:00:00 Telephone Dinorah Sykes [facility] THERAPIST [place] [facility] 1.2.840.114 350.1.13.10 4.2.7.2.686 [id number] 107 [id number] [facility] 2021-05-07 00:00:00 2021-05-07 00:00:00 Telephone Provider, [facility] B[employer]WORK THERAPIST [place] [facility] 1.2.840.114 350.1.13.10 4.2.7.2.686 [id number] 107 [id number] [facility] 2021-05-04 12:45:22 2021-05-04 13:00:22 Routine Visit Dinorah Sykes [facility] THERAPIST [place] [facility] 1.2.840.114 350.1.13.10 4.2.7.2.686 [id number] [facility] 2021-05-04 12:45:00 2021-05-04 12:45:00 Outpatient R DINORAH SYKES [facility] [id number] [facility] 2021-05-02 09:48:00 2021-05-02 12:24:00 Emergency Francois Espino [facility] 1.2.840.114 350.1.13.10 4.2.7.2.686 [id number] [facility] 2021-05-02 00:00:00 2021-05-02 00:00:00 Nurse Triage Candace [facility] 1.2.840.114 350.1.13.10 4.2.7.2.686 [id number] [facility] 2021-04-20 09:35:06 2021-04-20 10:05:06 Community Engagement Coordinator Visit Ultrasound, Desiree Mesa [facility] [employer] [employer] [facility] 1.2.840.114 350.1.13.10 4.2.7.2.686 [id number] [facility] 2021-04-20 09:30:00 2021-04-20 09:30:00 Outpatient P [facility] [id number] [facility] 2021-04-20 00:00:00 2021-04-20 00:00:00 Abstract Dinorah Sykes [facility] [employer] [employer] [facility] 1.2.840.114 350.1.13.10 4.2.7.2.686 [id number] [facility] 2021-04-07 14:40:00 2021-04-07 14:40:00 Outpatient CHATA BEAVERS [facility] [id number] [facility] 2021-04-06 09:52:33 2021-04-06 10:53:53 Initial Visit Dinorah Sykes [facility] [employer] [employer] [facility] 1..840.114 350.1.13.10 4.2.7.2.686 [id number] [facility] 2021-04-06 09:15:00 2021-04-06 09:15:00 Outpatient DINORAH LINDA [facility] [id number] [facility] 2021-04-06 00:00:00 2021-04-06 00:00:00 Orders Only Doctor Unassigned, [place] [facility] 1..840.114 350.1.13.10 4.2.7.2.686 [id number] [facility] 2021-04-06 00:00:00 2021-04-06 00:00:00 Orders Only Doctor Unassigned, [place] [facility] 1..840.114 350.1.13.10 4.2.7.2.686 [id number] [facility] 2021-03-23 14:40:00 2021-03-23 14:40:00 Outpatient MELISSA FULTON [facility] [id number] [facility] 2021-01-15 08:00:00 2021-01-15 08:00:00 Outpatient AVNI STEEL [facility] [id number] [facility] 2020-11-27 10:16:12 2020-11-27 10:31:12 Community Engagement Coordinator Visit Pob, Adc Lab Main Chata Reis [facility] 1..840.114 350.1.13.10 4.2.7.2.686 [id number] [facility] 2020-11-27 10:30:00 2020-11-27 10:30:00 Outpatient CHATA BEAVERS [facility] [id number] [facility] 2020-11-27 00:00:00 2020-11-27 00:00:00 Telephone Chata Reis [facility] 1.2.840.114 350.1.13.10 4.2.7.2.686 [id number] [facility] 2020-11-26 09:57:01 2020-11-26 11:16:54 Office Visit Chata Reis [facility] 1.2.840.114 350.1.13.10 4.2.7.2.686 [id number] [facility] 2020-11-26 10:00:00 2020-11-26 10:00:00 Outpatient R CHATA REIS [facility] [id number] [facility] 2020-11-26 00:00:00 2020-11-26 00:00:00 Orders Only Doctor Unassigned, [place] [facility] 1.2840.114 350.1.13.10 4.2.7.2.686 [id number] [facility] 2020-10-03 15:30:58 2020-10-03 16:14:36 Office Visit Andrea, Jovanna [facility] 1.2.840.114 350.1.13.10 4.2.7.2.686 [id number] [facility] 2020-10-03 15:20:00 2020-10-03 15:20:00 Outpatient R JOVANNA MENDEZ [facility] [id number] [facility] 2020-10-03 00:00:00 2020-10-03 00:00:00 [facility] 1.2.840.114 350.1.13.10 4.2.7.2.686 [id number] [facility] 2020-10-03 00:00:00 2020-10-03 00:00:00 Refill AndreaJovanna [facility] 1.2.840.114 350.1.13.10 4.2.7.2.686 [id number] 225 [id number] [facility] 2020-08-29 00:00:00 2020-08-29 00:00:00 Refill Ilene Ventura [facility] 1.2.840.114 350.1.13.10 4.2.7.2.686 [id number] [facility] 2020-08-21 13:26:46 2020-08-21 14:25:24 Office Visit Andrea Jovanna [facility] 1.2.840.114 350.1.13.10 4.2.7.2.686 [id number] [facility] 2020-08-21 13:20:00 2020-08-21 13:20:00 Outpatient R JOVANNA MENDEZ [facility] [id number] [facility] 2020-08-21 00:00:00 2020-08-21 00:00:00 [facility] (Out[facility] 1.2.840.114 350.1.13.10 4.2.7.2.686 [id number] [facility] 2020-07-30 15:20:00 2020-07-30 15:20:00 Outpatient R ILENE VENTURA [facility] [id number] [facility] 2020-07-25 15:30:00 2020-07-25 15:30:00 Outpatient R ELIO MEZA [facility] [id number] [facility] 2020-07-22 09:11:18 2020-07-22 09:33:19 Office Visit Ilene Ventura [facility] 1.840.114 350.1.13.10 4.2.7.2.686 [id number] [facility] 2020-07-22 09:10:00 2020-07-22 09:10:00 Outpatient R LORENZO ILENE [facility] [id number] [facility] 2020-07-15 15:26:07 2020-07-15 16:20:17 Office Visit Avni Leigh Usman [facility] 1.84.114 350.1.13.10 4.2.7.2.686 [id number] [facility] 2020-07-15 15:15:00 2020-07-15 15:15:00 Outpatient R AVNI LEIGH [facility] [id number] [facility] 2020-07-15 00:00:00 2020-07-15 00:00:00 Orders Only Doctor Unassigned, [place] [facility] 1.114 350.1.13.10 4.2.7.2.686 [id number] [facility] 2020-07-15 00:00:00 2020-07-15 00:00:00 Letter (Out) Doctor Unassigned, [place] [facility] 1.2114 350.1.13.10 4.2.7.2.686 [id number] [facility] 2020-05-06 16:00:00 2020-05-06 16:00:00 Outpatient R LORENZO ILENE [facility] [id number] [facility] 2020-04-23 00:00:00 2020-04-23 00:00:00 Refill Ilene Ventura [facility] 1.84.114 350.1.13.10 4.2.7.2.686 [id number] [facility] 2020-04-21 00:00:00 2020-04-21 00:00:00 Refill Reese Avni Usman [facility] 1.2.840.114 350.1.13.10 4.2.7.2.686 [id number] [facility] 2020-02-21 00:00:00 2020-02-21 00:00:00 Telephone Wesly Leighen Usman [facility] 1.2.840.114 350.1.13.10 4.2.7.2.686 [id number] [facility] 2020-02-20 00:00:00 2020-02-20 00:00:00 Refill Ilene Ventura [facility] 1.2.840.114 350.1.13.10 4.2.7.2.686 [id number] [facility] 2020-02-20 00:00:00 2020-02-20 00:00:00 Orders Only Doctor Unassigned, [place] [facility] 1.2840.114 350.1.13.10 4.2.7.2.686 [id number] [facility] 2020-01-10 00:00:00 2020-01-10 00:00:00 Refill Jovanna Mendez [facility] 1.2.840.114 350.1.13.10 4.2.7.2.686 [id number] [facility] 2020-01-10 00:00:00 2020-01-10 00:00:00 Refill Jovanna Mendez [facility] 1.2.840.114 350.1.13.10 4.2.7.2.686 [id number] [facility] 2019-12-28 00:00:00 2019-12-28 00:00:00 Telephone Ilene Ventura [facility] 1.2.840.114 350.1.13.10 4.2.7.2.686 [id number] [facility] 2019-12-12 10:30:00 2019-12-12 10:30:00 Outpatient R AVNI LEIGH [facility] [id number] [facility] 2019-12-07 06:16:26 2019-12-07 09:08:00 Emergency ArunMaira Sol Francois Espino [facility] 1.284.114 350.1.13.10 4.2.7.2.686 [id number] [facility] 2019-12-07 06:16:2019-12-07 09:08:00 Emergency X FRANCOIS ESPINO [facility] ERT [id number] [facility] 2019-11-22 15:40:00 2019-11-22 15:40:00 Outpatient R ILENE VENTURA [facility] [id number] [facility] 2019-11-22 08:06:14 2019-11-22 08:26:14 Telemedici ne Visit Ilene Ventura [facility] 1.2.84.114 350.1.13.10 4.2.7.2.686 [id number] [facility] 2019-11-20 00:00:00 2019-11-20 00:00:00 Refill Ilene Ventura [facility] 1.2.840.114 350.1.13.10 4.2.7.2.686 [id number] [facility] 2019-10-11 15:50:10 2019-10-11 16:45:52 Office Visit Ilene Ventura [facility] 1.2.840.114 350.1.13.10 4.2.7.2.686 [id number] [facility] 2019-10-11 16:00:00 2019-10-11 16:00:00 Outpatient R ILENE VENTURA [facility] [id number] [facility] 2019-10-11 00:00:00 2019-10-11 00:00:00 Letter (Out) Cherelle Venturazabeth Tiffanie [facility] 1.2.840.114 350.1.13.10 4.2.7.2.686 [id number] [facility] 2019-09-20 10:41:39 2019-09-20 11:29:04 Office Visit Cherelle Venturazabevenecia Moreno [facility] 1.2.840.114 350.1.13.10 4.2.7.2.686 [id number] [facility] 2019-09-20 10:40:00 2019-09-20 11:29:04 Outpatient R ILENE VENTURA [facility] [id number] [facility] 2019-09-14 00:00:00 2019-09-14 00:00:00 Telephone Avni Leigh [facility] 1.2.840.114 350.1.13.10 4.2.7.2.686 [id number] [facility] 2019-09-13 14:28:08 2019-09-13 15:22:57 Office Visit Avni Leigh [facility] 1.2.840.114 350.1.13.10 4.2.7.2.686 [id number] [facility] 2019-09-10 12:30:52 2019-09-10 13:46:06 Office Visit Lorenzo Ilene Tiffanie [facility] 1.2.840.114 350.1.13.10 4.2.7.2.686 [id number] [facility] 2019-09-10 10:56:04 2019-09-10 11:54:00 Emergency Sydnie Blanco [facility] 1.2.840.114 350.1.13.10 4.2.7.2.686 [id number] [facility] 2019-09-10 00:00:00 2019-09-10 00:00:00 Letter (Out) Ilene Ventura [facility] 1.2.840.114 350.1.13.10 4.2.7.2.686 [id number] [facility] 2019-09-03 13:46:50 2019-09-03 15:20:22 Office Visit Jovanna Mendez [facility] 1.2.840.114 350.1.13.10 4.2.7.2.686 [id number] [facility] 2019-09-03 00:00:00 2019-09-03 00:00:00 Letter (Out) Jovanna Mendez [facility] 1.2.840.114 350.1.13.10 4.2.7.2.686 [id number] [facility] 2019-09-03 00:00:00 2019-09-03 00:00:00 Orders Only Doctor Unassigned, [place] [facility] 1.2.840.114 350.1.13.10 4.2.7.2.686 [id number] [facility] 2019-04-20 00:00:00 2019-04-20 00:00:00 Telephone Joy Snider [facility] BODYWORK THERAPIST [employer] [facility] 1.2.840.114 350.1.13.10 4.2.7.2.686 [id number] [facility] 2019-04-18 09:03:04 2019-04-18 09:33:04 Office Visit Ari Mckeon [facility] [place] 1.2.840.114 350.1.13.10 4.2.7.2.686 [id number] [facility] 2019-04-18 07:45:33 2019-04-18 07:53:25 Community Engagement Coordinator Visit Lab, [facility] BODYWORK THERAPIST [employer] MATERNAL & CHILD [facility] 1.2.840.114 350.1.13.10 4.2.7.2.686 [id number] [facility] 2019-04-12 00:00:00 2019-04-12 00:00:00 Telephone Suryasol Joy [facility] BODYWORK THERAPIST [facility] CHILD [facility] 1.2.840.114 350.1.13.10 4.2.7.2.686 [id number] [facility] 2019-04-10 14:56:27 2019-04-10 15:11:19 Billing Encounter [facility] [facility] BODYWORK THERAPIST [facility] CHILD [facility] 1.2.840.114 350.1.13.10 4.2.7.2.686 [id number] [facility] 2019-04-10 13:45:59 2019-04-10 15:10:42 Office Visit SuryaJoy horton [facility] BODYWORK THERAPIST [place] & CHILD [facility] 1.2.840.114 350.1.13.10 4.2.7.2.686 [id number] [facility] 2019-04-10 00:00:00 2019-04-10 00:00:00 Orders Only Doctor Unassigned, [place] [facility] 1.2.840.114 350.1.13.10 4.2.7.2.686 [id number] [facility] 2019-03-23 09:49:40 2019-03-23 10:50:43 Office Visit Yas Calhoun [facility] BODYWORK THERAPIST [facility] 1.2.840.114 350.1.13.10 4.2.7.2.686 [id number] [facility] 2019-03-23 00:00:00 2019-03-23 00:00:00 Orders Only Doctor Unassigned, [place] [facility] 1.2840.114 350.1.13.10 4.2.7.2.686 [id number] [id number] [facility] 2019-03-09 00:00:00 2019-03-09 00:00:00 [facility]phone [facility] 1.2.840.114 350.1.13.10 4.2.7.2.686 [id number] [facility] Results Test Description Test Time Test Comments Results Result Co mments Source [facility] w/o Specific Qqftgil4988-98-91 15:08:00* Test Item Value Reference Range Interpretation Comme nts POCT PH U (test code = 3254) n/a 5-8 POCT U LEUK EST (test code = 3263) n/a Negative - Negative POCT U NIT (test code = 3262) n/a Negative - Negati ve POCT U PROT (test code = 3259) Negative Negative - Negat antonio POCT U GLU (test code = 3256) Normal Negative - Negati ve POCT U KETONE (test code = 3258) n/a Negative - Neg ative POCT U BLD (test code = 3257) n/a Negative - Negati ve [facility] ABDOMEN WO DCLXUDHU4212-07-85 22:46:25EXAM: CT ABDOMEN WO CONTRAST HISTORY: 23 years-old Female; Indication for study: Nausea/vomiting COMPARISON: None TECHNIQUE AND FINDINGS: Contiguous axial imaging from the level of the lungbases through the pubic symphysis was performed. Coronal and sagittalreconstructions were obtained. ? FINDINGS: Limited evaluation of solid organ without administration intravenouscontrast. LOWER THORAX: The lungs bases are clear. LIVER: No focal hepatic lesions. Normal contour. GALLBLADDER AND BILIARY TREE: No intra or extrahepatic biliary dilatation.No gallbladder wall thickening. SPLEEN: Unremarkable. PANCREAS: No ductal dilation or masses. ADRENAL GLANDS: No adrenal nodules. KIDNEYS: No hydronephrosis, stones, or contour altering masses. GI TRACT: No dilation or bowel wall thickening.The cecum and appendix isout of the lemmr-fy-lhdo. Hyperdense material is seen in the stomach andduodenum, unchanged assessment material. Small hiatal hernia. PERITONEUM AND RETROPERITONEUM: No free air or fluid. LYMPH NODES: No lymphadenopathy. VESSELS: Limited evaluation without IV contrast. BONES AND SOFT TISSUES: No suspicious lytic or sclerotic bony lesions. [facility] IgG AND [id number] 22:06:40* Test Item Value Reference Range Interpretation Comme nts MUMPS VIRUS IgG (test code = 74767) 63.7 AU/mL INTERPRETIVE INF ORMATION: Mumps Ab, IgG by JOBY 8.9 AU/mL or less .... Negative - No significant level of detectable IgG mumps virus antibody 9.0-10.9 AU/mL ....... Equivocal - Repeat testing in 10-14 days may be helpful 11.0 AU/mL or greater: Positive - IgG antibody to mumps virus detected, which may indicate a current or past exposure/ immunization to mumps virus. The best evidence for current infection is a significant change on two appropriately timed specimens, where both tests are done in the same laboratory at the same time. TESTING PERFORMED AT [facility], [address] [address] [place] [id number] CLIA NO. [id number] MUMPS VIRUS IgM (test code = 4587) 0.33 IV See_Comment INTERPRETIVE INFORMATION: Mumps Virus Antibody, IgM 0.79 IV or less: Negative - No significant level of detectable IgM antibody to mumps virus. 0.80 - 1.20 IV: Equivocal - Borderline levels of IgM antibody to mumps virus. Repeat testing in 10-14 days may be helpful. 1.21 IV or greater: Positive - Presence of IgM antibody to mumps virus detected, which may indicate a current or recent infection. However, low levels of IgM antibody may occasionally persist for more than 12 months post-infection or immunization. TESTING PERFORMED AT [facility] [address], [place] [address] [place] [id number] CLIA NO. [id number] [Automated message] The system which generated this result transmitted reference range: <=0.79. The reference range was not used to interpret this result as normal/abnormal. RUBEOLA AB, [id number] 12:15:39* Test Item Value Reference Range Interpretation Comme [facility] RUBEOLA AB, IgG (test code = 77719) >260.0 AU/ML SEE BELOW INTERPRETATION U NITS RANGE ----- ----- NEGATIVE AU/ML <13.5 EQUIVOCAL AU/ML 13.5-16.4 NOTE: CONSIDER RETESTING IN A CLINICALLY SUITABLE PERIOD OF TIME, NO SOONER THAN 1-2 WEEKS. POSITIVE AU/ML >=16.5 VARICELLA ZOSTER [id number] 12:15:39* Test Item Value Reference Range Interpretation Comme [facility] VARICELLA ZOSTER IgG (test code = 59821) 262 INDEX SEE BELOW INTERPRETATI ON VZV IgG NEGATIVE . . . . . . . . . . . . INDEX <135 EQUIVOCAL. . . . . . . . . . . . INDEX 135-164 NOTE: CONSIDER RETESTING IN A CLINICALLY SUITABLE PERIOD OF TIME, NO SOONER THAN 1-2 WEEKS. POSITIVE . . . . . . . . . . . . INDEX >=165 RUBELLA ANTIBODY [id number] 07:00:28* Test Item Value Reference Range Interpretation Comme [facility] RUBELLA ANTIBODY SCREEN (test code = 4600) 62 IU/ML SEE BELOW RUBELLA IgG INTERP (test code = 21186) REACTIVE REACTIVE INTERPRETATI ON UNITS RANGE NON-REACTIVE/NON-IMMUNE IU/ML <10 REACTIVE/IMMUNE IU/ML >=10 HEPATITIS C [id number] 07:00:28* Test Item Value Reference Range Interpretation Comme [facility] HEPATITIS C ANTIBODY (test c ode = 4675) NON-REACTIVE NON-REACTIVE HEPATITIS A [id number] 07:00:28* Test Item Value Reference Range Interpretation Comme [facility] HEPATITIS A IgM (test code = 2728) NON-REACTIVE NON-REACTIVE CPL has i mportant pathology staff changes effective 10/06/2022. New pathology staff will provide uninterrupted, excellent patient care and clinical consultation. See URL: [email or web address]. UNLESS OTHERWISE INDICATED, ALL TESTING PERFORMED AT [facility] [address] [place] [address] PIZZA COOK: ANNE MARIE MENDOZA M.D. [place] NUMBER [id number] [facility] [place]. [id number] HEPATITIS A TOTAL AB REFLEX TO [id number] 07:00:28* Test Item Value Reference Range Interpretation Comme nts HEPATITIS A TOTAL AB (test c ode = 2725) REACTIVE NON-REACTIVE A HEPATITIS B SURFACE [id number] 07:00:28* Test Item Value Reference Range Interpretation Comme nts HEPATITIS B SURFACE AB (test code = 2737) REACTIVE NON-REACTIVE A POCT URINALYSIS W/O SPECIFIC [id number] 19:34:00* Test Item Value Reference Range Interpretation Comme nts POCT PH U (test code = 3254) 8 mg/dl 5-8 POCT U LEUK EST (test code = 3263) ++ Negative - Negative POCT U NIT (test code = 3262) Negative Negative - Negati ve POCT U PROT (test code = 3259) Negative Negative - Negat antonio POCT U GLU (test code = 3256) Normal Negative - Negati ve POCT U KETONE (test code = 3258) Negative Negative - Neg ative POCT U BLD (test code = 3257) Negative Negative - Negati ve [facility] W/O SPECIFIC [id number] 19:34:00* Test Item Value Reference Range Interpretation Comme nts POCT PH U (test code = 3254) 8 mg/dl 5-8 POCT U LEUK EST (test code = 3263) ++ Negative - Negative POCT U NIT (test code = 3262) Negative Negative - Negati ve POCT U PROT (test code = 3259) Negative Negative - Negat antonio POCT U GLU (test code = 3256) Normal Negative - Negati ve POCT U KETONE (test code = 3258) Negative Negative - Neg ative POCT U BLD (test code = 3257) Negative Negative - Negati ve [facility] Notes Date/Time Note Provider Source 2023-12-30 08:44:29 UpjhfYAOvb0lwZC3l+mO MCg0ZIpi4NWipW e9cUmjsZlGlJ3vPJQVHHH7q384n1Fc5062 -05-24T08:44:29 Name and verified. Pt stated that she started spotting yesterday. Only with wiping. Denies intercourse. No pain. Advised pt to watch bleeding. If having to change pad every hour or severe abdominal pain- you will need to go to ER. Pelvic rest until next appt.Verbalized understanding.ILENE WHITEHEAD RN 12/30/2023 8:47 AM 91131-9Hnhsrmfap encounter RnypJB3883-45-13N36:47:49Telephone encounter NoteTXT1.2.840.921081.1.13.104.2.7 .2.619923|[id number] for patient cchj95590-3QglfCFXGLDDUHBJNoqeqyuh d C-CDA narrative tbzs422189885KspbgkdxfIlene Whitehead RN[address] VipqFcocrxycmOccfdhqekCLKL03774543 33JYOIDMTVIFHJQPPERLIEAU1620-65-50 T08:47:491.2.840.662694.1.72.3.15| 1.2.840.776026.1.13.104.2.7.2.7278 [id number] Ilene Whitehead [facility] 2023-12-30 08:03:25 1KKlyHtsJRkgO2BVasg9 NBsEBptBMMWu14 PEKhD900T1onirk3nwCzk0vu6ayyDk1674 -05-24T08:03:25 Pt is calling noticed she been spotting since yesterday no cramping want to speak to a nurse. 81180-4Ryvzfpnim encounter MfrcNJ8710-44-00U07:04:46Telephone encounter NoteTXT1.2.840.497412.1.13.104.2.7 .2.194116|[id number] for patient kxcy34315-6WvqcGWAKKUOHNOMYuhyjvms d C-CDA narrative qnei909541456Lgiee [address] ZscdJbeeayjrlQbyukarmeYDNK32683753 08CFMJVSDQLOJYJLSHIBQEKJ5143-57-15 T08:04:461.2.840.164272.1.72.3.15| 1.2.840.929019.1.13.104.2.7.2.7278 [id number] Hiral Tao [facility] 2023-12-28 15:29:26 3ULsgKGUhhCRLnAgpwMu RoZeIi+u95OVgd 84shIhAywvS61MxS8anGx71prmS2Sh4422 -05-22T15:29:26 Returned patients call. Patient advised she should start what was advised by Dr Leigh at her visit: Initiate pyridoxine, VITAMIN B-6, (VITAMIN B-6) 25 mgtablet, doxylamine (UNISOM, DOXYLAMINE,) 25 mgTablet as neededPatient states this was not available at pharmacy. Patient advised insurance most likely is not covering it and it can be bought over the counter. Patient given information for over the counter. Patient verbalized understanding.Josue Bray RN 12/28/2023 3:31 PM 46695-6Pmlgswqdy encounter TnxnHA9552-88-47N45:31:34Telephone encounter NoteTXT1.2.840.029291.1.13.104.2.7 .2.466846|[id number] for patient mrqg55539-4BfzvOZGTMWRECFUUeoddqyc d C-CDA narrative avnt309813073Roxugfu Collins [id number] 65SXCJEWXEXWVBSJKGJKZZHW9297-90-54 T15:31:341.2.840.667533.1.72.3.15| 1.2.840.822867.1.13.104.2.7.2.7278 [id number] Josue Bray [facility] 2023-12-28 08:45:40 KcGEXaKcR1PCUZwi2nPR [facility]/6pIxoHJ9B Kx9ur8y8UNOvbJ0jaziRAKwCXyFwHb8040 -05-22T08:45:40 Patient is wanting to know if Zofran is safe to take during . 50412-0Xnbnzvbku encounter TsagNF1548-68-10L60:46:22Telephone encounter NoteTXT1.2.840.497066.1.13.104.2.7 .2.065811|3920513784MKWsoxulgqr for patient wlll63712-0BsccPESFEVBTZOAAegdjvns d C-CDA narrative skmq51190585Czdys S Hernandez[id number] 63VVSXXQULJMXPWTTSMRYLYD9027-28-61 T08:46:221.2.840.678026.1.72.3.15| 1.2.840.401497.1.13.104.2.7.2.7278 [id number] Brit Conde [facility] 2023-12-13 14:18:51 xEP/8jsVf9seICGGIS9D CY1wlGJjSQBqZe iqFpwiT0Q98pk5xfiq+maeyfWbQp5J0249 -05-07T14:18:51 Call placed to pharmacy to discuss, Pharmacy states:They were able to correct for 32 day supply, no longer need anything from our office. 40607-5Gyqkhzsrr encounter QfecEE5480-37-38K22:24:01Telephone encounter NoteTXT1.2.840.802339.1.13.104.2.7 .2.751890|[id number] for patient rurd14637-5JcupSQZMGZZEFFPYhwqxvcd d C-CDA narrative bywt229204405Bfqxs Franky Bhatt RN[id number] 35SDXHHZGBGASWQGRXXFRBWS1348-87-08 T14:24:011.2.840.408525.1.72.3.15| 1.2.840.562329.1.13.104.2.7.2.7278 [id number] Luann Bhatt RN [facility] 2023-12-13 12:53:35 Ha3JnZTaF7t8m+q6beEj 1u1ZcAk4pQwMnd XEtY7TyeRZKempK4dS9/5qWlt/4BB634452023T12:53:35 Re-routing to correct clinic.Kimmie Perkins LVN 12/13/2023 12:53 PM 16765-5Blghljjgm encounter JnmyAH8879-55-61T77:53:51Telephone encounter NoteTXT1.2.840.664849.1.13.104.2.7 .2.212213|3445987744EQPvqqwjenz for patient nrzr53914-2GnfhMMUWLGJQCRTDzwzumcd d C-CDA narrative uizw361007794Kbbdypi M Fisher [id number] 37EDIXASOXNZWRZTNJHLPZKL2481-66-41 T12:53:511.2.840.429767.1.72.3.15| 1.2.840.907083.1.13.104.2.7.2.7278 79_[id number] Kimmie Perkins MEDICAL EQUIPMENT REPAIR TECHNICIAN [facility] 2023-12-13 12:50:41 6CvAlBFKqyU62FgXInsJ uPS5SG6rXqLHJe D/7kNBwZexNfJirZBgP2PkGo5KKTvm3497 -05-07T12:50:41 [facility]ida [facility] a 23 [facility] calling for new directions for prescription so incurance can cover the rx- [facility]er[facility] 2.5 mg/ [id number] [place], [place] - [address] [facility] [address] [address]Exsyf: [phone] Etpdukkikowzmg signed by Alix Blackwell at 12/13/2023 12:52 PM FDU89151-0Svlylxlym encounter NieySK5214-68-15F95:52:21Telephone encounter NoteTXT1.2.840.741847.1.13.104.2.7 .2.127764|4462805536WNAdknqzuwu for patient eshd61216-3QcfsYDZGBTGILIIArjevnwb d C-CDA narrative saqd739220503Jxexwk Papillion[id number] 08URREYRNTLQQXKEEZIZBAID1318-90-22 T12:52:211.2.840.481435.1.72.3.15| 1.2.840.972964.1.13.104.2.7.2.7278 79_[id number] Alix Blackwell [facility] 2023-12-11 09:30:59 7jkIoeoM1M82bsS0Boik TYDDL++zEXxM06 b7Hxfg5JzCvmXVM6rSwJdKBGuZklSv3204 -05-05T09:30:59 sent 90508-2Ihjccwlhl encounter XbmfTQ9135-51-89O69:31:04Telephone encounter NoteTXT1.2.840.467119.1.13.104.2.7 .2.546201|7253427543ZGWunncrxls for patient gook10454-0YhcsEXNVAUCRDWHBkagdjcs d C-CDA narrative text[address] MyliOsnbpexudHyuyxesscCPMD98554272 14EKKDPQLJQTCIRCHVYPEQPI5375-42-39 T09:31:041.2.840.859891.1.72.3.15| 1.2.840.324228.1.13.104.2.7.2.7278 [id number] [facility] 2023-12-09 09:25:54 G3TeVxhJM7tR+aI+UEb5 yAlQiTYxHv8Uza /O7CFHMjPk1obi3U6aCgJ0/+lRwbVy63112023T09:25:54 Current Rx:albuterol 2.5 mg /3 mL (0.083 %) nebulizer solution 5 Each 5 12/08/2023 -- NoSig: Inhale 3 mL every 4 (four) hours as needed for Wheezing or Shortness of Breath.Sent to pharmacy as: albuterol sulfate 2.5 mg/3 mL (0.083 %) solution for nebulization (PROVENTIL)Class: eRXRoute: InhalationOrder: [id number]/Time Signed: 12/08/2023 08:33E-Prescribing Status: Receipt confirmed by pharmacy (12/08/2023 8:33 AM CDT)Will forward message to provider for review on request for change. 16927-4Peivxynif encounter GlfwNQ9315-86-12Y03:27:50Telephone encounter NoteTXT1.2.840.257501.1.13.104.2.7 .2.717388|[id number] for patient bsnt88680-9PkrzDHIRZOMPWQXUymqdkin d C-CDA narrative dver279428208Qxzdc Franky Bhatt RN[address]vdGal[address]onGalvestonTXTX[address] 44VLRRROHFFHPSEQQHLLSPZX9577-73-22 T09:27:501.2.840.417182.1.72.3.15| 1.2.840.360910.1.13.104.2.7.2.7278 [id number] Luann Bhatt RN [facility] 2023-12-09 09:17:44 YAtqbmmMeCqvDO7H1YFm RQ9IL6HEqXo2gr pwemd4bsqyUpH7XPYWXJO5hkCt4dGJ0093 -05-03T09:17:44 Copied from [facility] #[id number]. Topic: Clinical - Medical Advice>> December 09, 2023 9:15 AM Patient Electrical Electronics Engineer wrote:Jey Ye is calling in regards to albuterol sulfate 2.5 mg/3 mL (0.083 %) solution for nebulization (PROVENTIL). insurance will pay for medication if directions read inhale 3ml every 6 hours. Please call in or send new revised [id number] - [place] - [address] [facility] [address] [address]Ajwdc: [phone] Nqeoeswxknepdm signed by Mark Terrazas at 12/09/2023 9:18 AM MIV28980-9Uaaolddoo encounter YdceQE5593-34-17K86:18:03Telephone encounter NoteTXT1.2.840.788267.1.13.104.2.7 .2.224137|1422496516HVCqbypjugp for patient nkgt64741-6GixcFEQDFLCZWVKNusmwfzu d C-CDA narrative penc638896091BqKaubbu Craw[address]vdGalvestonGalvestonTXTX[address] 92EEHHWCJDJABDOGHKPBRHIN3229-06-72 T09:18:031.2.840.766319.1.72.3.15| 1.2.840.387368.1.13.104.2.7.2.7278 [id number] Mark [facility] 2023-12-09 09:04:25 GxuhiPnDX//ZlClReLOq kDM63jRt65XMgW azp1MwP1yIWC4lGbLu1BYyuASGNsTp1830 -05-03T09:04:25 Per rpevious encounter:Per Cover My Meds: Additional Information RequiredWe received a prior authorization request for the member and product listed above. The Community and State Medicaid Prior Authorization Team is not able to review this request because requested medication does not require prior authorization.The pharmacy may obtain assistance by contacting the [employer] Help Desk at [phone] detailed message on pharmacy VM, No answer 13602-2Lmnmwpntq encounter UqsaQO2473-55-98X08:04:51Telephone encounter NoteTXT1.2.840.600928.1.13.104.2.7 .2.425759|[id number] for patient iggh17484-8AfogNNHLFAVNWAESpuqwzfx d C-CDA narrative pzky452944227Ghmul Garcia V, RN[address]vdGalvestonGalvestonTXTX[address] 38QZGZHMKKYLQWCAPQONXNNJ7441-47-56 T09:04:511.2.840.383732.1.72.3.15| 1.2.840.769081.1.13.104.2.7.2.7278 [id number] Luann Bhatt RN [facility] 2023-12-09 07:49:31 KY05uyZ1WhS2dJSnuwBy olhi1ffh+Ct2t+ RXbRRBXvPaIXHQ9TWDVY4Di3KjoAg71366 -05-03T07:49:31 Images from the original note were not included. 43269-0Qvadwuhve encounter CiuzKW1305-13-50H27:50:15Telephone encounter NoteTXT1.2.840.168522.1.13.104.2.7 .2.740152|8852718756PFGskijiuer for patient xsem41156-9NeouCGTOTXBWYBXCdpwamdw d C-CDA narrative czbx24425032Tzrf [address] FcujHsgkiinheKmboawerqUIFT71585055 20FIHSMIPWERGVTLZSDMLZEV0163-87-49 T07:50:151.2.840.976626.1.72.3.15| 1.2.840.296193.1.13.104.2.7.2.7278 [id number] Michelle Billings [facility] 2023-12-08 16:14:08 kF6dxyV2paI+IUZoBaGm ALnO/hZr0fhXs0 OgXcW+0MBOjUcZG0EivpnhfrG7bsza0551 -05-02T16:14:08 Call placed to pharmacy to inform to dispense 1 box with no refill. Discussed with pharmacist. 34069-9Bkwruhfyh encounter DomrEK5452-11-67K45:14:39Telephone encounter NoteTXT1.2.840.403490.1.13.104.2.7 .2.587596|4027277624PAMcvwygxgd for patient cwvj11002-8MupwRKNXCLJEONKSxbyrytp d C-CDA narrative rlhh181872797Wycjx Garcia V, ROSALVA[address]TXTX[address] 53XEDSBYGRWZDPCQDNZBUBQJ9417-62-86 T16:14:391.2.840.015508.1.72.3.15| 1.2.840.398918.1.13.104.2.7.2.7278 [id number] Luann Bhatt RN [facility] 2023-12-08 15:23:49 l+3tOr/SKXMzUV1b9SeX I/9ZMwpps66VZy W7OP6rMteglCrDM9Y/cUllBkzoH4Lb7764 -05-02T15:23:49 1 box 39518-7Festsdaeb encounter VacxYI7699-09-28D58:23:58Telephone encounter NoteTXT1.2.840.520098.1.13.104.2.7 .2.859510|9586651495JPFkopdoneh for patient xmyi28924-3KbyqQGJMRSGZYFNZsuksanx d C-CDA narrative textNP-FAMILY MIDLEVEL PROVIDERNP-FAMILY MIDLEVEL PROVIDER[id number] 60DXACDEBQPKVCIOZIMTNVNL8550-08-35 T15:23:581.2.840.877714.1.72.3.15| 1.2.840.221713.1.13.104.2.7.2.7278 [id number] PORCELAIN TURNER-FAMILY MIDLEVEL PROVIDER [facility] 2023-12-08 14:47:35 qPLa/Jfwc3coMIiFfPeZ 51EcH1QYkH06LY q4wH4/KGeOnUgZ3v5WCNqsqRQjkF3Z5723 -05-02T14:47:35 Per Cover My Meds: Additional Information RequiredWe received a prior authorization request for the member and product listed above. The Community and State Medicaid Prior Authorization Team is not able to review this request because requested medication does not require prior authorization.The pharmacy may obtain assistance by contacting the [employer] Desk at [phone].Left detailed message on pharmacy VM, 25792-9Pzthiascy encounter WzuwPF8322-26-60V59:48:19Telephone encounter NoteTXT1.2.840.940451.1.13.104.2.7 .2.387149|5331348320EYEjdmtblvm for patient xrsw60399-7OdgfHDNYAFKRWZWCpzaupnf d C-CDA narrative qifg482367368Tpctx Franky Bhatt RN[address] EpfvMgmxhpcvqVtbkvddbtVBAE71389049 11KXGBODWAGZDPUGFMWZEQKI1307-37-69 T14:48:191.2.840.350635.1.72.3.15| 1.2.840.941903.1.13.104.2.7.2.7278 [id number] Luann Bhatt RN [facility] 2023-12-08 09:45:22 sdpyeIsylJbzQkJPLSe0 5a6vWWxl2O+jrr svwODjYd2Q6fjyP1hWjus//so5gO8+2023T09:45:22 Copied from [facility] #[id number]. Topic: Clinical - Order>> December 08, 2023 9:44 AM Patient Electrical Electronics Engineer wrote:Davida Zamorano is a 23 year old femalePharmacy calling and needs to verify the quantity for Rx ipratropium 0.02 % nebulizer solution. Please advise.[id number] - [place], [place] - [id number] [facility] [address]Phone: Utzluetdgfttan signed by Chyna Reynlods at 12/08/2023 9:46 AM ZGQ08309-3Rikcsawzk encounter KowpJM4882-11-32M08:46:24Telephone encounter NoteTXT1.2.840.998006.1.13.104.2.7 .2.804012|[id number] for patient zpoi77006-4XsizBZWPFQVARKIOkbfdylo d C-CDA narrative [id number] J [id number] 66JXUBKQVUGHXIRTZGCHCFHN4829-09-86 T09:46:241.2.840.191830.1.72.3.15| 1.2.840.651802.1.13.104.2.7.2.7278 [id number] Chyna Reynolds [facility] 2023-12-08 09:32:51 5DsLT8EQgffSikEihLGF jGSIaz+uCKZ18y 8faEE/NlRUpM3UfjthNV0RQPvyBibG5538 -05-02T09:32:51 Images from the original note were not included. 58334-0Acdyusfsk encounter TtxeAE9942-41-82G82:34:38Telephone encounter NoteTXT1.2.840.221786.1.13.104.2.7 .2.039323|[id number] for patient gnyo49156-0UyzeSJHNVHDKXFQMssovyxh d C-CDA narrative [id number] [id number] 97RRVQEGZCYOYZDKENVFJTQN2213-36-88 T09:34:381.2.840.016016.1.72.3.15| 1.2.840.604461.1.13.104.2.7.2.7278 [id number] Michelle Billings [facility] 2023-11-23 13:15:00 r4HobT3OquTLqKyCQoQ8 y+wSUWGe/3yzeJ sBFD95QkTGfDTyaixqTaqRu5W5/ho48610 T13:15:00 Images from the original note were not included.H. Pulori breathe test given to pt.First Breathe @ 1327.Second Breathe @ 1343.Kusum Xavier 11/23/2023 1:40 PMVenipuncture collection performed by clean technique on the left anticubitus. Total of 1 attempts were made. Slight pressure and a bandage/dressing were applied to the site(s). The patient experienced no complications. The following specimens were processed according to instructions and sent to [facility] laboratories per lab order on 11/23/2023:LT BLUESST 1REDLAV 2PPTDK GREEN (LiHep)DK GREEN (SodH)GRAYDK BLUE (K2)DK BLUE (S)ACDBlood CultureNIPT/NTDSterile stool kit was provided to pt with instructions. 95137-4Lqlpu IyomYC9439-79-25T07:41:09Nurse NoteTXT1.2.840.504510.1.13.104.2.7 .2.111476|[id number] for patient wblm55772-8Iaavm NoteLNNARRATIVEFormatted C-CDA narrative text[address] Mt[id number] 87ASNYZIKXPEAGJIDSHRKHIY5827-67-80 T13:41:091.2.840.339318.1.72.3.15| 1.2.840.525636.1.13.104.2.7.2.7278 79_[id number] [facility]"
[2023-12-30 09:23] LABS: Absolute Basophils 0.1 K/uL (0-0.5); Absolute Lymphocytes (CBC) 1.4 K/uL (0.7-4.9); Absolute Monocytes 0.4 K/uL (0.1-1.3); Absolute Neutrophil 3.4 K/uL (1.8-8.0); Basophils % 1.3 % (0-1.3); Eosinophils % 0.7 % (0-4.4); Hemoglobin 11.3 g/dL (12.0-15.0); Lymphocytes % 26.4 % (15.3-44.8); MCH 22.1 pg (27.0-35.0); MCHC 31.3 g/dL (32.0-36.0); MCV 70.4 fL (80-100); MPV 7.8 fL (7.6-11.3); Monocytes % 6.9 % (3.3-12.3); Neutrophils % 64.7 % (41.7-73.7); Platelets 415 thou/uL (152-406); RBC Red Blood Cell Count 5.11 M/uL (3.86-4.86); Red Cell Distribution Width 18.7 % (12.1-15.2)
[2023-12-30 09:55] LABS: Anion Gap 7.4 mEq/L (5.0-15.0); Potassium 3.4 mEq/L (3.5-5.1)
[2023-12-30] MEDS ORDERED: POTASSIUM 25 MEQ EFFERV TAB ONE (10:30)
--- NOTE | 2023-12-30 10:30 | ER ---
Nurse's Notes [facility] Name: Davida Zamorano Age: 23 yrs Sex: Female : 2000 Arrival Date: 12/30/2023 Time: 08:52 Bed 20 Private MD: Diagnosis: Threatened ;Less than 8 weeks gestation of Presentation: 12/29 09:05 Chief complaint: Spotty vaginal bleeding since yesterday, mild abdominal cramping last hb night. LMP 4/11, . Coronavirus screen: At this time, the client does not indicate any symptoms associated with coronavirus-19. Ebola Screen: No symptoms or risks identified at this time. Initial Sepsis Screen: Does the patient meet any 2 criteria? No. Patient's initial sepsis screen is negative. Does the patient have a suspected source of infection? No. Patient's initial sepsis screen is negative. Risk Assessment: Do you want to hurt yourself or someone else? Patient reports no desire to harm self or others. Onset of symptoms was December 29, 2023. 09:05 Method Of Arrival: Ambulatory hb 09:05 Acuity: JOSE RAMON 3 hb Triage Assessment: 09:06 General: Appears in no apparent distress. Behavior is calm, cooperative. Pain: Denies hb pain. Neuro: Level of Consciousness is awake, alert, obeys commands, Oriented to person, place, time, situation. Cardiovascular: Patient's skin is warm and dry. Rhythm is regular. Respiratory: Respiratory effort is even, unlabored, Respiratory pattern is regular, symmetrical. : Reports vaginal bleeding that is spotty. FUR BLENDER: 09:37 2, Full Term 2, Premature 0, 0, Living 1, unknown diana 10:51 Verified ap3 Historical: - Allergies: 09:06 No Known Allergies; hb - Home Meds: 09:06 Iron CR Oral [Active]; Vitamin Oral [Active]; hb - PMHx: 09:06 Asthma; hb - PSHx: 09:06 Wrist - Left (Asthma); hb - Immunization history:: Adult Immunizations up to date. - Infectious Disease History:: Denies. - Social history:: Smoking status: Patient denies any tobacco usage or history of. - Family history:: not pertinent. Screenin:16 [facility] ED Fall Risk Assessment (Adult) History of falling in the last 3 months, ap3 including since admission No falls in past 3 months (0 pts) Confusion or Disorientation No (0 pts) Intoxicated or Sedated No (0 pts) Impaired Gait No (0 pts) Mobility Assist Device Used No (0 pt) Altered Elimination No (0 pt) Score/Fall Risk Level 0 - 2 = Low Risk Oriented to surroundings, Maintained a safe environment, Educated pt \T\ family on fall prevention, incl call for assistance when getting out of bed, Assessed \T\ reinforced patient's understanding of fall precautions, Provided non-skid footwear, Hourly rounding (assess needs \T\ fall precautionary measures) done, Used ambulatory aids as needed (educated on \T\ assisted with), Used gait belt as appropriate. Abuse screen: Denies threats or abuse. Nutritional screening: No deficits noted. Tuberculosis screening: No symptoms or risk factors identified. Assessment: 09:16 General: Appears in no apparent distress. Behavior is calm, cooperative, appropriate ap3 for age. Pain: Complains of pain in pelvis Quality of pain is described as crampy. Neuro: Level of Consciousness is awake, alert, obeys commands, Oriented to person, place, time, situation. Cardiovascular: Patient's skin is warm and dry. Respiratory: Airway is patent Respiratory effort is even, unlabored, Respiratory pattern is regular, symmetrical. : Reports discharge, from vagina that is bloody. Vital Signs: 09:05 BP 134 / 85; Pulse 86; Resp 16; Temp 98.4(O); Pulse Ox 100% on R/A; Weight 58.97 kg; hb Height 5 ft. 5 in. ; Pain 0/10; 09:05 Body Mass Index 21.63 (58.97 kg, 165.1 cm) hb 09:05 Pain Scale: Adult hb ED Course: 08:56 Patient arrived in ED. mg5 08:58 Dennis Conner MD is Attending Physician. diana 09:00 Nay Mckenna, ROSALVA is Primary Nurse. ap3 09:06 Triage completed. hb 09:07 Arm band placed on. hb 09:07 Client placed on continuous cardiac and pulse oximetry monitoring. NIBP monitoring hb applied. Pulse ox on. NIBP on. 09:15 Initial lab(s) drawn, by me, sent to lab. Inserted saline lock: 22 gauge in left ap3 antecubital area, using aseptic technique. Blood collected. 09:17 Patient has correct armband on for positive identification. Bed in low position. Call ap3 light in reach. Side rails up X 1. Adult w/ patient. Provided Education on: call light use education. 10:19 Transvaginal Ob In Process Unspecified. EDMS 10:51 No provider procedures requiring assistance completed. IV discontinued, intact, ap3 bleeding controlled, No redness/swelling at site. Pressure dressing applied. Administered Medications: 10:38 Not Given (Patient Refused): ns 0.9% 1000 ml IV at 1 bolus Per protocol; 1000 mL bolus ap3 10:38 Drug: Potassium PO Effervescent Tablet 25 mEq PO once; dissolve in 4 ounces of water or ap3 juice Route: PO; 10:50 Follow up: Response: Medication administered at discharge. ap3 Medication: 10:51 VIS not applicable for this client. ap3 Outcome: 10:29 Discharge ordered by . diana 10:51 Discharged to home ambulatory, with family, ap3 10:51 Condition: good 10:51 Discharge instructions given to patient, Instructed on discharge instructions, follow up and referral plans. Demonstrated understanding of instructions, follow-up care, 10:51 Patient left the ED. ap3 Signatures: Dispatcher [employer] Dennis Apodaca MD MD cha Baxter, Heather, Nay Renee RN, RN RN ap3 Smita Velazquez mg5
--- NOTE | 2023-12-30 10:30 | EDPHYS ---
Physician Documentation [facility] Name: Davida Zamorano Age: 23 yrs Sex: Female : 2000 Arrival Date: 12/30/2023 Time: 08:52 Bed 20 Private MD: HEIDI Physician Dennis Conner HPI: 12/29 09:37 This 23 yrs old Black Female presents to ER via Ambulatory with complaints of Vaginal diana Bleeding, [id number]. 09:37 The patient presents with vaginal bleeding that is light. Onset: The symptoms/episode diana began/occurred 2 day(s) ago. Modifying factors: The symptoms are alleviated by nothing, the symptoms are aggravated by nothing. Associated signs and symptoms: The patient has no apparent associated signs or symptoms. Severity of symptoms: At their worst the symptoms were mild, in the emergency department the symptoms are unchanged. The patient is sexually active, reportedly has a single partner. The patient has experienced similar episodes in the past, a few times. HOSPITAL DIRECTOR: 09:37 2, Full Term 2, Premature 0, 0, Living 1, unknown diana 10:51 Verified ap3 Historical: - Allergies: 09:06 No Known Allergies; hb - Home Meds: 09:06 Iron CR Oral [Active]; Vitamin Oral [Active]; hb - PMHx: 09:06 Asthma; hb - PSHx: 09:06 Wrist - Left (Asthma); hb - Immunization history:: Adult Immunizations up to date. - Infectious Disease History:: Denies. - Social history:: Smoking status: Patient denies any tobacco usage or history of. - Family history:: not pertinent. ROS: 09:37 Positive for vaginal bleeding, diana 09:37 Constitutional: Negative for fever, chills, and weight loss, Eyes: Negative for injury, pain, redness, and discharge, ENT: Negative for injury, pain, and discharge, Neck: Negative for injury, pain, and swelling, Cardiovascular: Negative for chest pain, palpitations, and edema, Respiratory: Negative for shortness of breath, cough, wheezing, and pleuritic chest pain, Abdomen/GI: Negative for abdominal pain, nausea, vomiting, diarrhea, and constipation, Back: Negative for injury and pain, MS/Extremity: Negative for injury and deformity, Skin: Negative for injury, rash, and discoloration, Neuro: Negative for headache, weakness, numbness, tingling, and seizure, Psych: Negative for depression, anxiety, suicide ideation, homicidal ideation, and hallucinations, Allergy/Immunology: Negative for hives, rash, and allergies, Endocrine: Negative for neck swelling, polydipsia, polyuria, polyphagia, and marked weight changes, Exam: 09:37 Constitutional: This is a well developed, well nourished patient who is awake, alert, diana and in no acute distress. Head/Face: Normocephalic, atraumatic. Eyes: Pupils equal round and reactive to light, extra-ocular motions intact. Lids and lashes normal. Conjunctiva and sclera are non-icteric and not injected. Cornea within normal limits. Periorbital areas with no swelling, redness, or edema. ENT: Nares patent. No nasal discharge, no septal abnormalities noted. Tympanic membranes are normal and external auditory canals are clear. Oropharynx with no redness, swelling, or masses, exudates, or evidence of obstruction, uvula midline. Mucous membranes moist. Neck: Trachea midline, no thyromegaly or masses palpated, and no cervical lymphadenopathy. Supple, full range of motion without nuchal rigidity, or vertebral point tenderness. No Meningismus. Chest/axilla: Normal chest wall appearance and motion. Nontender with no deformity. No lesions are appreciated. Cardiovascular: Regular rate and rhythm with a normal S1 and S2. No gallops, murmurs, or rubs. Normal PMI, no JVD. No pulse deficits. Respiratory: Lungs have equal breath sounds bilaterally, clear to auscultation and percussion. No rales, rhonchi or wheezes noted. No increased work of breathing, no retractions or nasal flaring. Abdomen/GI: Soft, non-tender, with normal bowel sounds. No distension or tympany. No guarding or rebound. No evidence of tenderness throughout. Back: No spinal tenderness. No costovertebral tenderness. Full range of motion. Female : Normal external genitalia. Skin: Warm, dry with normal turgor. Normal color with no rashes, no lesions, and no evidence of cellulitis. MS/ Extremity: Pulses equal, no cyanosis. Neurovascular intact. Full, normal range of motion. Neuro: Awake and alert, GCS 15, oriented to person, place, time, and situation. Cranial nerves II-XII grossly intact. Motor strength 5/5 in all extremities. Sensory grossly intact. Cerebellar exam normal. Normal gait. Psych: Awake, alert, with orientation to person, place and time. Behavior, mood, and affect are within normal limits. Vital Signs: 09:05 BP 134 / 85; Pulse 86; Resp 16; Temp 98.4(O); Pulse Ox 100% on R/A; Weight 58.97 kg; hb Height 5 ft. 5 in. ; Pain 0/10; 09:05 Body Mass Index 21.63 (58.97 kg, 165.1 cm) hb 09:05 Pain Scale: Adult hb MDM: 08:58 Patient medically screened. [facility] 09:45 Differential diagnosis: ectopic , molar preganancy, ovarian cyst, uterine diana fibroids, urinary tract infection. Data reviewed: vital signs, nurses notes, lab test result(s), radiologic studies, ultrasound. Consideration of Admission/Observation Patient was admitted/placed on observation. I considered the following discharge prescriptions or medication management in the emergency department Medications were administered in the Emergency Department. See MAR. Independent interpretation of the following test(s) in the Emergency Department Radiology Department Ultrasound: My interpretation is vag probe. 12/29 08:58 Order name: Abo/rh Typing; Complete Time: 10:13 [facility] 12/29 08:58 Order name: Basic Metabolic Panel; Complete Time: 10:13 [facility] 12/29 08:58 Order name: CBC with Diff; Complete Time: 09:36 [facility] 12/29 08:58 Order name: Test, Urine [facility] 12/29 08:58 Order name: Quantitative Hcg; Complete Time: 10:13 [facility] 12/29 08:58 Order name: Urinalysis w/ reflexes 12/29 08:58 Order name: US Transvaginal Ob diana 12/29 08:58 Order name: IV Saline Lock; Complete Time: 09:17 [facility] 12/29 08:58 Order name: Labs collected and sent; Complete Time: 09:17 [facility] 12/29 08:58 Order name: NPO; Complete Time: 09:17 [facility] Administered Medications: 10:38 Not Given (Patient Refused): ns 0.9% 1000 ml IV at 1 bolus Per protocol; 1000 mL bolus ap3 10:38 Drug: Potassium PO Effervescent Tablet 25 mEq PO once; dissolve in 4 ounces of water or ap3 juice Route: PO; 10:50 Follow up: Response: Medication administered at discharge. ap3 Disposition Summary: 12/30/23 10:29 Discharge Ordered Notes: Location: Home [place] Problem: new diana Symptoms: have improved diana Condition: Stable diana Diagnosis - Threatened diana - Less than 8 weeks gestation of diana Followup: diana - With: Private Physician - When: 1 - 2 days - Reason: Recheck today's complaints, Continuance of care, Re-evaluation by your physician Discharge Instructions: - Discharge Summary Sheet diana - Care diana - Threatened Miscarriage diana - Vaginal Bleeding During , First Trimester diana - First Trimester of , [id number] diana - First Trimester of diana - Threatened Miscarriage, [id number] diana - Vaginal Bleeding During , First Trimester, [id number] diana Forms: - Medication Reconciliation Form diana - Antibiotic Education diana - Prescription Opioid Use diana - Patient Portal Instructions diana - Leadership Thank You Letter [facility] Signatures: Dispatcher [employer] Dennis Apodaca MD MD cha Baxter, Heather, RN RN Nay Mckenna RN RN ap3 Corrections: (The following items were deleted from the chart) 08:59 08:59 ABO/RH TYPING+BB.LAB.BRZ ordered. EDMS EDMS 08:59 08:59 BASIC METABOLIC PANEL+C.LAB.BRZ ordered. EDMS EDMS 08:59 08:59 CBC+H.LAB.BRZ ordered. EDMS EDMS 08:59 08:59 Test, Urine+UC.LAB.BRZ ordered. EDMS EDMS 08:59 08:59 QUANTITATIVE HCG+C.LAB.BRZ ordered. EDMS EDMS 08:59 08:59 Urinalysis+U.LAB.BRZ ordered. EDMS EDMS
[2023-12-30 10:52] LABS: Specific Gravity 1.027 (1.005-1.030)
[2023-12-30 10:54] LABS: Specific Gravity 1.027 (1.005-1.030); Sqamous Epithelial <5 /HPF (None Seen); Urine Bacteria None Seen /HPF (<20); Urine Bilirubin NEGATIVE (Negative); Urine Blood Trace (Negative); Urine Clarity Turbid (Clear); Urine Color Yellow (Yellow); Urine Culture Reflex Order NOT NEEDED; Urine Glucose NEGATIVE (Negative); Urine Ketones TRACE (Negative); Urine Microscopic Reflex YN ORDER UMIC; Urine Mucus 1+ /HPF (None Seen); Urine Nitrite NEGATIVE (Negative); Urine Protein TRACE (Negative); Urine RBC <5 /HPF (None Seen); Urine Urobilinogen 1+ (Normal); Urine WBC <5 /HPF (<5)
[2023-12-30 10:58] VITALS: BP 134/85; TEMP 98.4; O2SAT 100
--- NOTE | 2023-12-30 11:17 | RAD REPORT ---
EXAM DESCRIPTION: US - Transvaginal OB - 12/30/2023 10:18 am CLINICAL HISTORY: ABD CRAMPING, COMPARISON: No comparisons TECHNIQUE: Sonographic grayscale and color flow images of a first-trimester were obtained through transvaginal approach. FINDINGS: A single intrauterine is identified. Gestational sac measures 11.8 mm in average diameter, corresponding to gestational age of 5 weeks, 6 days. No pole or cardiac pulsations are identified. Normal yolk sac is visualized. Maternal ovaries are unremarkable. Trace free fluid in the cul-de-sac. IMPRESSION: 1. Single intrauterine gestational sac identified, with no pole visualized yet. 2. Calculated gestational age: 5 weeks, 6 days. Estimated due date by ultrasound: 08/25/2024. A short -term follow-up ultrasound is recommended in 7-10 days to ensure viability.
== END 2023-12-30 10:51 | disposition home or self-care (01) ==
LOC: ER 08:52
DX: O20.0 Threatened abortion (principal); Z3A.01 Less than 8 weeks gestation of pregnancy
CPT/HCPCS: 36415; 76817; 80048; 81001; 81025; 84702; 85025; 86900; 86901; 99284